=== PATIENT | female | born 1930 | race Caucasian/White ===

== ENCOUNTER 2016-03-20 17:59 | Inpatient (IN) | payer OTHER, MEDICARE ==
--- NOTE | 2016-03-20 18:14 | EDPHY ---
H & P Stated Complaint: lower abd pain, seen in UC today, dx with UTI Time Seen by Provider: 03/20/16 18:13 HPI/ROS: CHIEF COMPLAINT: Hematuria, right flank pain HISTORY OF PRESENT ILLNESS: The patient presents to the ED for evaluation of hematuria and right flank pain. Her hematuria began yesterday. It was painless. She was seen at urgent care and had a urine dipstick which dipped primarily positive for blood. A culture was ordered. The patient tells me after she was discharged from the urgent care with a presumptive diagnosis of UTI she developed flank pain and nausea. The patient has no history of a recent UTI. She has been taking her antibiotics as prescribed urgent care. The patient is not anticoagulated. She denies recent hospitalization. The patient denies additional complaints. The patient reports her symptoms are mild to moderate in nature. They are worsened with movement. They are associated with nausea but no fever. REVIEW OF SYSTEMS: A comprehensive 10 point review of systems is otherwise negative aside from elements mentioned in the history of present illness. Source: Patient Exam Limitations: No limitations - Personal History Current Tetanus/Diphtheria Vaccine: Yes Current Tetanus Diphtheria and Acellular Pertussis (TDAP): Yes - Medical/Surgical History Hx Asthma: No Hx Chronic Respiratory Disease: No Hx Diabetes: No Hx Cardiac Disease: No Hx Renal Disease: No Hx Cirrhosis: No Hx Alcoholism: No Hx HIV/AIDS: No Hx Splenectomy or Spleen Trauma: No Other PMH: appendectomy, 1 ovary removed, hysterectomy, cholecystectomy, shingles - Social History Smoking Status: Never smoked - Physical Exam Exam: General Appearance: Alert, mild discomfort secondary to pain Eyes: Pupils equal and round no pallor or injection ENT, Mouth: Mucous membranes moist Respiratory: There are no retractions, lungs are clear to auscultation Cardiovascular: Regular rate and rhythm Gastrointestinal: Minimal tenderness in the right lower quadrant Back: Right CVA tenderness Neurological: A&O, normal motor function, normal sensory exam, normal cranial nerves Skin: Warm and dry, no rashes Musculoskeletal: Neck is supple nontender Extremities: symmetrical, full range of motion Constitutional: Initial Vital Signs Temperature (C) 37.3 C 03/20/16 18:05 Heart Rate 104 H 03/20/16 18:05 Respiratory Rate 17 03/20/16 18:05 Blood Pressure 180/98 H 03/20/16 18:05 O2 Sat (%) 95 03/20/16 18:05 O2 Delivery Mode Room Air Allergies/Adverse Reactions: codeine Allergy (Verified 03/20/16 18:04) Home Medications: Medication Instructions Recorded Allopurinol 03/20/16 Amlodipine Besylate 03/20/16 Aspirin 81mg (*) 03/20/16 CO Q-10 03/20/16 Diovan Hct 160-25 mg Tablet 03/20/16 Prevastatin 03/20/16 Medical Decision Making - Diagnostics Imaging: CT abdomen pelvis without contrast: Large mass associated with right kidney noted, clot noted within the ureter, questionable clot noted in the renal vein and potential extension and IVC. Study results reported to me by Dr. Arya Lee. CT abdomen pelvis with contrast: No evidence of metastatic disease noted, no evidence of renal vein thrombosis. Clot noted within the left ureter. ED Course/Re-evaluation: The patient had an IV established. I reviewed the results of her workup from urgent care which consisted of a urinalysis which demonstrated only blood. The patient did received 25 mcg of fentanyl. Given her exam and hematuria, a CT scan of the abdomen pelvis has been ordered to exclude nephrolithiasis. CT scan of the abdomen pelvis without contrast demonstrates a newly diagnosed renal mass. There is questionable clot noted in the IVC and renal vein. CT scan the abdomen pelvis with IV contrast has been ordered. The patient received additional IV fentanyl in the emergency department. She presents to the ED with a newly diagnosed renal tumor with obstructive uropathy likely secondary to clot in the ureter. Additionally, the patient is noted to have pyuria with 4+ bacteriuria. The patient will be given IV ceftriaxone to cover for a concurrent infection. The patient will require admission to the hospital for pain control this evening. Consultation is made with the hospitalist service. I spoke with Dr. Puentes who will admit the patient this evening. Consultation has been made with Urology. I spoke with Dr. Chino Womack who will see the patient tomorrow. He does recommend a CT scan of the chest for further staging. The patient has already received contrast tonight so I will defer this to the hospitalist service to order tomorrow. Differential Diagnosis: Differential diagnosis considered includes nephrolithiasis, ureterolithiasis, pyelonephritis, renal malignancy, myofascial strain, abdominal aortic aneurysm - Data Points Laboratory Results: Laboratory Results 03/20/16 18:26 03/20/16 18:26 03/20/16 03/20/16 18:26 18:22 WBC 10.63 H 10^3/uL (3.80-9.50) RBC 4.27 10^6/uL (4.18-5.33) Hgb 12.7 g/dL (12.6-16.3) Hct 36.5 L % (38.0-47.0) MCV 85.5 fL (81.5-99.8) MCH 29.7 pg (27.9-34.1) MCHC 34.8 g/dL (32.4-36.7) RDW 13.7 % (11.5-15.2) Plt Count 248 10^3/uL (150-400) MPV 10.6 fL (8.7-11.7) Neut % (Auto) 78.6 H % (39.3-74.2) Lymph % (Auto) 15.1 % (15.0-45.0) [place] % (Auto) 4.9 % (4.5-13.0) Eos % (Auto) 0.5 L % (0.6-7.6) Baso % (Auto) 0.5 % (0.3-1.7) Nucleat RBC Rel Count 0.0 % (0.0-0.2) Absolute Neuts (auto) 8.37 H 10^3/uL (1.70-6.50) Absolute Lymphs (auto) 1.60 10^3/uL (1.00-3.00) Absolute Monos (auto) 0.52 10^3/uL (0.30-0.80) Absolute Eos (auto) 0.05 10^3/uL (0.03-0.40) Absolute Basos (auto) 0.05 10^3/uL (0.02-0.10) Absolute Nucleated RBC 0.00 10^3/uL (0-0.01) Immature Gran % 0.4 % (0.0-1.1) Immature Gran # 0.04 10^3/uL (0.00-0.10) Sodium 131 L mEq/L (134-144) Potassium 3.7 mEq/L (3.5-5.2) Chloride 95 L mEq/L (97-110) Carbon Dioxide 25 mEq/l (22-31) Anion Gap 11 mEq/L (8-16) BUN 27 H mg/dL (7-23) Creatinine 1.0 mg/dL (0.6-1.0) Estimated GFR 53 Glucose 106 H mg/dL (70-100) Calcium 11.4 H mg/dL (8.5-10.4) Phosphorus 3.3 mg/dL (2.5-4.5) Urine Color RED Urine Appearance MODERATELY TURBID Urine pH 6.0 (5.0-7.5) Ur Specific [place] 1.008 (1.002-1.030) Urine Protein 2+ H (NEGATIVE) Urine Ketones TRACE H (NEGATIVE) Urine Blood 2+ H (NEGATIVE) Urine Nitrate NEGATIVE (NEGATIVE) Urine Bilirubin NEGATIVE (NEGATIVE) Urine Urobilinogen NEGATIVE EU (0.2-1.0) Ur Leukocyte Esterase TRACE H (NEGATIVE) Urine RBC 50-182 H /hpf (0-3) Urine WBC 25-50 H /hpf (0-3) Ur Epithelial Cells NONE SEEN /lpf (NONE-1+) Urine Bacteria 4+ H /hpf (NONE SEEN) Ur Culture Indicated? INDICATED H (NI) Urine Glucose NEGATIVE (NEGATIVE) Medications Given: Discontinued Medications Fentanyl (Sublimaze) 25 mcg IVP EDNOW ONE Stop: 03/20/16 18:46 Last Admin: 03/20/16 18:52 Dose: 25 mcg Sodium Chloride (Ns) 1,000 mls @ 0 mls/hr IV ONCE ONE PRN Reason: Wide Open Stop: 03/20/16 18:54 Last Admin: 03/20/16 19:40 Dose: Not Given Sodium Chloride (Ns) 500 mls @ 0 mls/hr IV ONCE ONE PRN Reason: Wide Open Stop: 03/20/16 19:37 Last Admin: 03/20/16 18:50 Dose: 500 mls Departure - Departure Disposition: [facility] Acute Clinical Impression: Renal mass, right, Hydronephrosis, Hematuria Condition: Fair
[2016-03-20 18:33] LABS: COLOR RED; LEUKOCYTE ESTERASE,URINE TRACE (NEGATIVE); NITRITE,URINE NEGATIVE (NEGATIVE)
[2016-03-20] MEDS ORDERED: fentaNYL 100 MCG/2 ML INJ IVP ONE ×2 (18:45→20:15)
[2016-03-20] MEDS ORDERED: fentaNYL 100 MCG/2 ML INJ ONE (18:46)
[2016-03-20 18:48] LABS: ANION GAP 11 mEq/L (8-16); CALCIUM 11.4 mg/dL (8.5-10.4); CARBON DIOXIDE 25 mEq/l (22-31); CHLORIDE 95 mEq/L (97-110); GLOMERULAR FILTRATION RATE 53; GLUCOSE 106 mg/dL (70-100); POTASSIUM 3.7 mEq/L (3.5-5.2); SODIUM 131 mEq/L (134-144)
[2016-03-20 18:52] LABS: BACTERIA 4+ /hpf (NONE SEEN); RBC,URINE 50-182 /hpf (0-3); WBC,URINE 25-50 /hpf (0-3)
[2016-03-20 18:53] LABS: % IMMATURE GRANULYOCYTES 0.4 % (0.0-1.1); ABSOLUTE IMMATURE GRANULOCYTES 0.04 10^3/uL (0.00-0.10); ADD DIFF? NO; ADD MORPH? NO; ADD SCAN? NO; ATYPICAL LYMPHOCYTE FLAG 0 (0-99); FRAGMENT RBC FLAG 0 (0-99); HEMATOCRIT 36.5 % (38.0-47.0); HEMOGLOBIN 12.7 g/dL (12.6-16.3); LEFT SHIFT FLG 0 (0-99); LIPEMIA HEMOLYSIS FLAG 90 (0-99); MEAN CELL HEMOGLOBIN 29.7 pg (27.9-34.1); MEAN CELL HEMOGLOBIN CONCENTR. 34.8 g/dL (32.4-36.7); MEAN CELL VOLUME 85.5 fL (81.5-99.8); MEAN PLATELET VOLUME 10.6 fL (8.7-11.7); PLATELET CLUMPS FLAG 0 (0-99); PLATELET COUNT 248 10^3/uL (150-400); RED BLOOD CELL COUNT 4.27 10^6/uL (4.18-5.33); RED CELL DISTRIBUTION WIDTH 13.7 % (11.5-15.2)
[2016-03-20] MEDS: NS 1,000 ML IV ONE ×2 (18:54→19:40)
[2016-03-20] MEDS ORDERED: IOPAMIDOL (ISOVUE-300) 50 ML VIAL IV ONE (19:27)
[2016-03-20] MEDS ORDERED: NS 500 ML IV ONE (19:36)
--- NOTE | 2016-03-20 20:39 | CT ---
CT Abdomen and Pelvis With and Without IV Contrast dated March 20, 2016 Indication: An 86-year-old woman with hematuria and flank pain. Comparison: None. Technique: The abdomen and pelvis was initially scanned without IV or oral contrast utilizing 5 mm th ick helically acquired slices from the heart to the usual tuberosities. 80 mL of Isovue-300 was uneve ntfully intravenously administered and the abdomen was scanned during arterial and nephrographic phas e and the abdomen and pelvis was scanned following a 12 minute delay. Dose reduction techniques were utilized. Findings Noncontrast: A large heterogeneous 8.5 x 7.0 x 8.0 cm mass fills and replaces the upper half of the r ight kidney. Mild stranding and collateral vessels surround the right kidney. The right pelvicalyceal system and ureter are moderately dilated. Dense material, likely blood products are present in the d istal one-third of the right ureter. No obstructing ureteral calculus or distal mass. Left kidney is normal with no hydronephrosis, ureteral calculi, or nephrolithiasis. The urinary bladd er is normal. The lung bases are clear. No pulmonary nodule or consolidation. No lytic or blastic bone lesions. Postcontrast: The hypervascular heterogeneous mass promptly enhances on the arterial phase and has ea rly venous draining into the right renal vein and inferior vena cava. The right renal vein and inferi or vena cava have normal enhancement on the nephrographic and delayed phase with no evidence of tumor thrombus. The thrombus in the distal right ureter results in delayed excretion of contrast into the dilated right renal pelvis. The normally enhancing left kidney has normal excretion. The opacified le ft ureter and urinary bladder are normal. No blood clot or mass within the bladder lumen. No regional lymphadenopathy, peritoneal implant, or ascites. The liver, spleen, pancreas, and adrenal glands are normal. The gallbladder is surgically absent. [place] el pattern is normal, except for moderate constipation. The abdominal aorta is normal caliber and atherosclerotic. Impressions: 1. 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 2. No evidence of renal tumor thrombus or local regional metastatic disease. 3. Moderate right hydronephrosis secondary to clot in the distal right ureter. 4. Normal left kidney and urinary bladder. 5. Atherosclerotic abdominal aorta. Comment: Results were called to Dr. Blair Chino at 8:30 p.m. on March 20, 2016.
[2016-03-20] MEDS ORDERED: ONDANSETRON 4 MG/2 ML VIAL ONE (20:54)
[2016-03-20] MEDS ORDERED: ONDANSETRON 4 MG/2 ML VIAL IVP ONE (21:03)
[2016-03-20] MEDS ORDERED: HYDROCODONE/APAP 5/325 TAB PO PRN (21:07)
[2016-03-20] MEDS ORDERED: oxyCODONE IR 5 MG TAB PO PRN (21:07)
[2016-03-20] MEDS ORDERED: ONDANSETRON 4 MG/2 ML VIAL IVP PRN (21:07)
[2016-03-20] MEDS ORDERED: ONDANSETRON DISINTEGRATING 4 MG TAB PO PRN (21:07)
[2016-03-20] MEDS ORDERED: ACETAMINOPHEN 325 MG TAB PO PRN (21:07)
[2016-03-20] MEDS ORDERED: NS 1,000 ML IV SCH (21:15)
--- NOTE | 2016-03-20 21:48 | GHP ---
[f rep st] HISTORY AND PHYSICAL DATE OF ADMISSION: 03/20/2016 CHIEF COMPLAINT: Right flank pain. HISTORY OF PRESENT ILLNESS: This is an 86-year-old female with only a history of hypertension. She has had 1 day of hematuria and right flank pain. CT scan today revealed a right renal mass. She den ies any weight loss. She does have some intermittent constipation, but this has been chronic. No josefina ne pain. No shortness of breath or chest pain. No fevers or chills. REVIEW OF SYSTEMS: A 10-point review of systems was obtained and was negative. PAST MEDICAL HISTORY: Hypertension, gout. MEDICATIONS: Reviewed. SOCIAL HISTORY: No smoking or alcohol. Moved here from [place] 3 months ago to be with family. FAMILY HISTORY: Both parents are . PHYSICAL EXAMINATION: VITAL SIGNS: Afebrile, blood pressure is 171/71, heart rate is 88, oxygen sat uration 91% on room air. GENERAL: The patient is well developed and in no apparent distress. HEENT : Nonicteric sclerae. Extraocular movements intact. Moist mucous membranes. NECK: Supple. No th yromegaly. LUNGS: Good effort. Clear to auscultation bilaterally. CARDIOVASCULAR: Regular rate a nd rhythm. No murmurs or gallops. ABDOMEN: Positive bowel sounds. Soft, nontender, nondistended. No hepatosplenomegaly. Positive right CVA tenderness. EXTREMITIES: No clubbing, cyanosis, or saud a. SKIN: Without rash. Dry and intact. NEUROLOGIC: Alert and oriented x3. Moving all 4 extremit ies equally. PSYCHIATRIC: Normal affect. LABORATORY DATA: Sodium 131, potassium 3.7, BUN 27, creatinine 1.0. Calcium is elevated at 11.4. [place] count is 10; otherwise, normal. UA does show 4+ bacteria suggestive of a urinary tract infectio n. CT scan of the abdomen and pelvis shows an 8 x 7 x 8 cm mass that fills and replaces the upper lemus lf of the right kidney. Moderate right hydronephrosis due to a clot in the distal right ureter. ASSESSMENT AND PLAN: An 86-year-old female who presented with a new right renal mass. 1. Right renal mass. Urology has been consulted. They were requesting a CT scan of the chest for david leo. We will get this in the morning since she has had contrast. 2. Right hydronephrosis with urinary tract infection. We will treat with IV ceftriaxone. The patie nt is not septic-appearing at all. 3. Hypercalcemia. This could be related to malignancy or perhaps her hydrochlorothiazide. We will check a PTH, give IV fluids overnight, and check an ionized calcium tomorrow. 4. Mild hyponatremia, probably related to diuretic. 5. Hypertension. We will hold her Diovan/hydrochlorothiazide. We can resume her amlodipine if her pressures are high tomorrow. We will hold her aspirin. /[id number]/MODL
[2016-03-21 05:35] LABS: IONIZED CALCIUM 1.32 MMOL/L (1.12-1.30)
[2016-03-21 05:36] LABS: % IMMATURE GRANULYOCYTES 0.4 % (0.0-1.1); ABSOLUTE IMMATURE GRANULOCYTES 0.05 10^3/uL (0.00-0.10); ADD DIFF? NO; ADD MORPH? NO; ADD SCAN? NO; ATYPICAL LYMPHOCYTE FLAG 0 (0-99); FRAGMENT RBC FLAG 0 (0-99); HEMATOCRIT 34.7 % (38.0-47.0); HEMOGLOBIN 11.9 g/dL (12.6-16.3); LEFT SHIFT FLG 0 (0-99); LIPEMIA HEMOLYSIS FLAG 90 (0-99); MEAN CELL HEMOGLOBIN 29.9 pg (27.9-34.1); MEAN CELL HEMOGLOBIN CONCENTR. 34.3 g/dL (32.4-36.7); MEAN CELL VOLUME 87.2 fL (81.5-99.8); PLATELET CLUMPS FLAG 0 (0-99); PLATELET COUNT 213 10^3/uL (150-400); RED BLOOD CELL COUNT 3.98 10^6/uL (4.18-5.33); RED CELL DISTRIBUTION WIDTH 13.9 % (11.5-15.2)
[2016-03-21 05:44] LABS: APTT 31.3 SEC (23.0-38.0); INR 1.13 (0.83-1.16); PROTIME(PATIENT) 14.4 SEC (12.0-15.0)
[2016-03-21 05:57] LABS: ALANINE AMINOTRANSFERASE 28 IU/L (9-52); ALBUMIN 3.2 g/dL (3.5-5.0); ALKALINE PHOSPHATASE 58 IU/L (38-126); ANION GAP 10 mEq/L (8-16); ASPARTATE AMINOTRANSFERASE 31 IU/L (14-46); CARBON DIOXIDE 25 mEq/l (22-31); CHLORIDE 98 mEq/L (97-110); CREATININE 1.2 mg/dL (0.6-1.0); GLOMERULAR FILTRATION RATE 43; GLUCOSE 107 mg/dL (70-100); SODIUM 133 mEq/L (134-144)
[2016-03-21] MEDS ORDERED: HYDROCHLOROTHIAZIDE PO SCH (10:00)
[2016-03-21] MEDS ORDERED: VALSARTAN PO SCH (10:00)
[2016-03-21] MEDS ORDERED: [UNRECOGNIZED DRUG - OTHER] PO SCH (10:00)
--- NOTE | 2016-03-21 12:30 | HOSPPROG ---
Hospitalist Progress Note Assessment/Plan: 86-year-old with hypertension presents with 1 day of hematuria and flank pain. CT evaluation revealed a large right renal mass. # right renal mass suspicious for renal cell carcinoma. Patient pain much improved today however plans are for Urology to evaluate her here and decide on further evaluation whether here or as an outpatient. * Await urology consult * CT of the chest today to look for metastatic disease # flank pain. Improved today patient has been on antibiotics for possible obstructive urinary tract infection * Continue antibiotics # hypertension. Currently controlled # renal insufficiency unclear chronicity as patient recently moved here. Monitor creatinine # DVT prophylaxis: Lovenox contraindicated in setting of bleeding tumor. Subjective: Patient pain much improved today wants to go home as soon as possible Objective: Vital Signs Temp Pulse Resp BP Pulse Ox 36.7 C 80 16 116/68 94 03/21/16 08:45 03/21/16 08:45 03/21/16 08:45 03/21/16 08:45 03/21/16 08:45 Laboratory Results 03/21/16 03:22 03/21/16 03:22 03/20/16 03/21/16 03/22/16 05:59 05:59 05:59 Intake Total 600 Output Total 750 Balance -150 PT 14.4 SEC (12.0-15.0) 03/21/16 03:22 INR 1.13 (0.83-1.16) 03/21/16 03:22 - Physical Exam Constitutional: no apparent distress Eyes: PERRL, EOMI Ears, Nose, Mouth, Throat: moist mucous membranes Cardiovascular: regular rate and rhythym, systolic murmur Respiratory: no respiratory distress, no rales or rhonchi, clear to auscultation Gastrointestinal: normoactive bowel sounds, soft, non-tender abdomen, no palpable masses Skin: warm Musculoskeletal: normal joint ROM, no joint effusions Neurologic: AAOx3, sensation intact bilaterally Psychiatric: interacting appropriately, not anxious ICD10 Worksheet Patient Problems: Problems Problem Status Diagnosed Hematuria Acute Hydronephrosis Acute Renal mass, right Acute
[2016-03-21] MEDS: amLODIPine BESYLATE 5 MG TAB PO SCH (15:51)
[2016-03-21] MEDS: VALSARTAN/HCTZ 80-12.5MG TAB PO SCH (15:51)
[2016-03-21] MEDS ORDERED: IOPAMIDOL (ISOVUE-300) 50 ML VIAL IV ONE (17:09)
--- NOTE | 2016-03-21 18:09 | CT ---
CT Chest With Contrast 1731 hours Indication: Large right upper pole renal mass. Evaluate for metastatic disease in the chest.. Technique: Spiral images were obtained through the chest with the uneventful intravenous administr ation of 80 mL of Isovue-300. Images were reconstructed and reviewed in multiple planes. Dose reduc tion techniques were utilized. Findings: Mediastinum and ashley: There is a prominent right distal tracheal node measuring 2.4 x 2.3 x 2.9 cm. N o additional hilar or mediastinal lymphadenopathy is appreciated.. Lung and large airways: Normal. No significant pulmonary nodules. Within the left lower lobe posterio rly on series 4 image 159 there is mucous plug identified measuring about 5 x 4.5 mm. No additional p ulmonary nodules are identified. Mild subsegmental atelectasis is seen at the right lung base. There is some elevation of the right hemidiaphragm. Bronchi: No significant bronchial wall thickening. Pleura: Normal. Vessels: There is arteriosclerotic calcification of the thoracic aorta without evidence of aneurysm o r dissection. Arteriosclerotic calcifications are also seen involving the proximal to mid LAD. . Heart and pericardium: The cardiac chambers are normal in size. Calcification is also noted around t he mitral annulus. Chest wall and lower neck: Normal. Limited upper abdomen: Large mass is once again identified upper pole right kidney.. Skeletal system: Vertebral body heights are well-maintained. There are no lytic or sclerotic osseous lesions. Impression: 1. Prominent right distal paratracheal node suspicious for metastatic disease. 2. No significant pulmonary nodules. Incidental mucous plug left lower lobe. 3. Arteriosclerotic calcification of the thoracic aorta and proximal to mid LAD. 4. Large mass upper pole right kidney previously described.
[2016-03-21] MEDS ORDERED: CHOLECALCIFEROL VIT D3 1,000 UNITS TAB PO SCH (21:00)
[2016-03-21] MEDS: ASPIRIN EC 81 MG TAB PO SCH ×2 (21:19→21:23)
[2016-03-21] MEDS: HYDROmorphONE/DILAUDID 1 MG/ML SYR IVP PRN (21:19)
[2016-03-21] MEDS: PRAVASTATIN SODIUM 40 MG TAB PO SCH ×2 (21:19→21:23)
[2016-03-21] MEDS ORDERED: PROMETHAZINE HCL 25 MG/ML VIAL IVP PRN (21:34)
[2016-03-22] MEDS: HYDROmorphONE/DILAUDID 1 MG/ML SYR IVP PRN (00:58)
[2016-03-22 06:00] LABS: % IMMATURE GRANULYOCYTES 0.4 % (0.0-1.1); ABSOLUTE IMMATURE GRANULOCYTES 0.05 10^3/uL (0.00-0.10); ADD DIFF? NO; ADD MORPH? NO; ADD SCAN? NO; ATYPICAL LYMPHOCYTE FLAG 0 (0-99); FRAGMENT RBC FLAG 0 (0-99); HEMATOCRIT 32.2 % (38.0-47.0); HEMOGLOBIN 11.1 g/dL (12.6-16.3); LEFT SHIFT FLG 0 (0-99); LIPEMIA HEMOLYSIS FLAG 90 (0-99); MEAN CELL HEMOGLOBIN 29.8 pg (27.9-34.1); MEAN CELL HEMOGLOBIN CONCENTR. 34.5 g/dL (32.4-36.7); MEAN CELL VOLUME 86.3 fL (81.5-99.8); MEAN PLATELET VOLUME 10.2 fL (8.7-11.7); PLATELET CLUMPS FLAG 0 (0-99); PLATELET COUNT 194 10^3/uL (150-400); RED BLOOD CELL COUNT 3.73 10^6/uL (4.18-5.33)
[2016-03-22 06:23] LABS: ANION GAP 10 mEq/L (8-16); CALCIUM 9.6 mg/dL (8.5-10.4); CARBON DIOXIDE 24 mEq/l (22-31); CHLORIDE 100 mEq/L (97-110); CREATININE 1.4 mg/dL (0.6-1.0); GLOMERULAR FILTRATION RATE 36; GLUCOSE 89 mg/dL (70-100); POTASSIUM 3.5 mEq/L (3.5-5.2); SODIUM 134 mEq/L (134-144)
[2016-03-22 07:50] VITALS: TEMP 98.5
[2016-03-22] MEDS ORDERED: NS 1,000 ML IV SCH (08:15)
[2016-03-22] MEDS ORDERED: MULTIVITAMINS 1 EACH TAB PO SCH (09:00)
[2016-03-22] MEDS ORDERED: CALCIUM CARBONATE 500 MG TAB PO SCH (09:00)
[2016-03-22] MEDS ORDERED: VITAMIN B COMPLEX 1 EA CAP/TAB PO SCH (09:00)
--- NOTE | 2016-03-22 09:28 | SOAPPROG ---
[facility] Progress Note Assessment/Plan: Assessment: 1. Large right renal mass w/ possible isolated lung wade metastasis. 2. Hematuria and renal colic due to bleeding from renal mass. Plan: 1. See dictated consultation. 2. Discharge pt. once current symptomatology has improved. She will FU in my office this for further consultation. She will also need to meet w/ oncology as an outpatient as well. 3. Hold all anticoagulants, including ASA. Objective: Vital Signs Temp Pulse Resp BP Pulse Ox 36.9 C 84 16 132/64 H 95 03/22/16 07:49 03/22/16 07:49 03/22/16 07:49 03/22/16 07:49 03/22/16 07:49 Laboratory Results 03/22/16 05:35 03/22/16 05:35 03/21/16 03/22/16 03/23/16 05:59 05:59 05:59 Intake Total 600 500 400 Output Total 750 2500 Balance -150 -2000 400 PT 14.4 SEC (12.0-15.0) 03/21/16 03:22 INR 1.13 (0.83-1.16) 03/21/16 03:22 ICD10 Worksheet Patient Problems: Problems Problem Status Diagnosed Hematuria Acute Hydronephrosis Acute Renal mass, right Acute
[2016-03-22] MEDS: VALSARTAN/HCTZ 80-12.5MG TAB PO SCH (10:14)
[2016-03-22] MEDS: amLODIPine BESYLATE 5 MG TAB PO SCH (10:15)
--- NOTE | 2016-03-22 11:32 | GDS ---
[f rep st] DISCHARGE SUMMARY DIAGNOSES: 1. Renal mass with hematuria. 2. Acute renal insufficiency, needs close followup. 3. Hypertension. 4. Flank pain, likely secondary to renal mass. 5. Pyuria, unclear if patient has a urinary tract infection .. PROCEDURES DONE: Chest and abdominal CT scan. Chest CT showing prominent right distal paratracheal node suspicious for metastatic disease. Abdominal CT: Large right renal mass with arterial and veno us collaterals. No evidence of renal tumor thrombus. Moderate right hydro. Normal left kidney and urinary bladder. HOSPITAL COURSE: The patient is an 86-year-old, healthy woman, who comes in with right flank pain. Evaluation included a urinalysis and CT scanning which revealed a large right renal mass. She did lemus ve hematuria on the day of admission, which improved through her stay, although she has intermittent hematuria at the time of discharge. She received a CT scan and urology consult, which confirmed high likelihood of renal cell carcinoma. Metastatic workup was done including a chest CT. She has a fol lowup scheduled with Dr. Womack as an outpatient to discuss treatment options including possible neph rectomy. Other issues during hospitalization: She may have had a mild urinary tract infection. She was treat ed with ceftriaxone and will complete a few days of Keflex until she sees Urology. She has mild stuart l insufficiency, likely from the hydro, as well as the contrast studies. She needs a followup metabo lic panel done on to recheck her creatinine. She does have a ob gyn physician assistant she will call if she has any concerns, Dr. Mahajan, whom she has a relationship with as he sees her . In the , she is to hold her losartan/hydrochlorothiazide, increase her hydration, check her blood wor k on . This will go directly to her primary care provider, Dr. Naomi Matthews. If she has any o ther issues or concerns, she can certainly call her primary care provider or come to the emergency ro om for emergencies. CONDITION ON DISCHARGE: Good. PHYSICAL EXAMINATION: VITAL SIGNS: She has been afebrile. Vital signs are stable. GENERAL: She i s alert and oriented. ABDOMEN: Soft. HEART: Regular. LUNGS: Clear. DISCHARGE MEDICATIONS: Please see discharge medication list. She will resume her home medications e xcept for holding her blood pressure losartan and hydrochlorothiazide until . She will she w as given a prescription for Keflex to complete 5 more days, Zofran for nausea, and Oxy IR for pain. FOLLOWUP INSTRUCTIONS: She has followup scheduled with Dr. Womack later this week. She should also see her primary care provider and has a blood test scheduled on . TIME SPENT: Total time spent with patient on day of discharge and coordination of care is 35 minutes . /[id number]/MODL
[2016-03-22 12:38] VITALS: BP 121/57; PULSE 88; RESP 18; O2SAT 91
--- NOTE | 2016-03-22 13:03 | GCON ---
[f rep st] CONSULTATION UROLOGY CONSULTATION DATE OF CONSULTATION: 03/21/2016 PHYSICIAN REQUESTING CONSULTATION: Hospitalist service. REASON FOR CONSULTATION: Right renal mass and hematuria. HISTORY: This is an 86-year-old woman who started experiencing gross painless hematuria and right-si ded flank pain 1 day prior to admission. She presented to the emergency room as a result. She has als o had some associated increased urinary frequency and urgency, but denies any fevers or flu-like symp toms. CT scan was performed on admission which revealed a sizable renal mass, detailed below. PAST MEDICAL HISTORY: Notable for hypertension and gout. PAST SURGICAL HISTORY: Includes laparoscopic cholecystectomy within the last 10 years and remote tot al abdominal hysterectomy and bilateral salpingo-oophorectomy. ADMISSION MEDICATIONS: Include valsartan/hydrochlorothiazide 160 mg/25 mg daily, Pravachol 20 mg at bedtime, Norvasc 5 mg daily, baby aspirin, vitamins and supplements. MEDICAL ALLERGIES: Codeine. FAMILY HISTORY: Noncontributory. SOCIAL HISTORY: The patient and her moved here from [place], [place] approximately 3 months ag o to be closer to family. She lives at [facility]. She denies use of tobacco or alcohol products. H er has renal failure and undergoes regular dialysis. REVIEW OF SYSTEMS: She has had an approximately 6 pounds unintentional weight loss over the last 3 m onths. Denies anorexia or changes in bowel movement pattern. Otherwise, unremarkable other than menti oned above in the HPI and past medical history. PHYSICAL EXAM: GENERAL: Pleasant, well-developed, well-nourished elderly female, in no acute distres s. VITAL SIGNS: Blood pressure 146/60, pulse 89, respirations 16, oxygen saturation 89% on 1 L, tempe rature 37.7 Celsius. HEENT: Normocephalic, atraumatic. NECK: Supple. HEART: Regular rate. CHEST: Unla bored respiratory pattern. ABDOMEN: Soft with fullness in the right upper quadrant with some mild ass ociated tenderness. No peritoneal signs. No involuntary guarding. A lower midline surgical scar is no aron. EXTREMITIES: Warm without cyanosis, clubbing, or significant edema. VASCULAR: Normal femoral, do rsalis pedis, and posterior tibial pulses bilaterally. NEUROLOGIC: She is alert and oriented. She ans wers all questions appropriately with normal mood and affect. LAB STUDIES: Abdominopelvic CT scan yesterday: Upon my review, notable for an approximately 9 x 7 x 8 cm long heterogeneous enhancing solid right upper pole renal mass that extends posteriorly and medi ally. There was possible thrombus into the IVC and extending superiorly 4 cm from the junction with t he renal vein. There was some possible small perihilar adenopathy. There was moderate right hydroneph rosis with clot in the distal ureter. The left kidney and liver appear normal. Chest CT scan: By report, notable for a prominent 2.5 x 2 x 3 cm right distal paratracheal node, worr isome for metastatic disease. Laboratory: Chemistry panel notable for creatinine 1.2, compared to 1.01 in . Remainder of comprehensive medical panel is unremarkable. 03/21 coagulation parameters normal. 03/21 CBC notable for hematocrit 11.9, hemoglobin 34.7, white blood cell count 12,000. Urinalysis notable for microhematuri a with 4+ bacteria. Urine culture results are pending. IMPRESSION: 1. Large right renal mass with possible pulmonary metastasis. Very suggestive for renal cell carcino ma. 2. Right flank pain and gross hematuria secondary to tumor bleeding into renal collecting system and subsequent clot in the ureter. DISCUSSION: I had a prolonged talk with the patient this evening regarding her imaging findings and probable diagnosis of renal cancer with possible metastasis. Management options would include palliat luis carlos nephrectomy versus systemic immunotherapy or tyrosine kinase inhibitors. We discussed that her cu rrent symptoms of hematuria, flank pain, and urinary symptoms are due to bleeding from the tumor whic h in many cases tends to be episodic. All of the patient's questions were answered to her apparent sa tisfaction this evening. PLAN: 1. She may be discharged once her symptoms have abated. I would expect the ureteral blood clots to s pontaneously pass, and this should allow her to feel better. 2. I would like to have the patient follow up in my office on for further [facility], if possible. 3. She will also need to meet with medical oncology which we will arrange as an outpatient. At this point, the patient is not sure whether she wants to undergo any type of therapy. 4. If she continues to have gross hematuria following discharge, she may need to undergo nephrectomy for that reason alone. 5. I have asked the patient to stop her baby aspirin, and she should not resume any other anticoagul ants until further notice. Thank you for this consultation. /[id number]/MODL
== END 2016-03-22 16:54 | disposition home or self-care (01) | DRG 699 ==
LOC: F1N 20:45
PROVIDERS: ADMIT Internal Medicine; ATTEND Internal Medicine
DX: N28.89 Other specified disorders of kidney and ureter (principal); E87.1 Hypo-osmolality and hyponatremia; E83.52 Hypercalcemia; R31.9 Hematuria, unspecified; N39.0 Urinary tract infection, site not specified; N13.30 Unspecified hydronephrosis; I10 Essential (primary) hypertension; M10.9 Gout, unspecified
CPT/HCPCS: 96365; J0696; J1170; J2405; J2550; J3010; Q9967

== ENCOUNTER → 2016-04-12 | Outpatient (CLI) | payer OTHER, MEDICARE ==
--- NOTE | 2016-04-12 11:33 | DX ---
Chest, Two Views - April 12, 2016, at 1025 hours History: Right renal cell carcinoma. Comparison: March 2016 Findings: Cardiac silhouette is within normal range. Atherosclerotic tortuous aorta. Bilateral peribr onchial thickening. No pneumonia, congestive heart failure, pleural effusion, or pneumothorax. Impression: 1. Chronic bronchitis. 2. No definite pneumonia. 3. Atherosclerotic tortuous aorta. 4. Please see recent CT chest report.
== END ==
LOC: FIMAGING 10:28
PROVIDERS: ATTEND Family Medicine
DX: Z01.818 Encounter for other preprocedural examination (principal); C64.9 Malignant neoplasm of unspecified kidney, except renal pelvis; J42 Unspecified chronic bronchitis

== ENCOUNTER 2016-04-22 12:17 | Inpatient (IN) | payer OTHER, MEDICARE ==
[2016-04-22] MEDS ORDERED: NS 1,000 ML IV ONE (13:56)
--- NOTE | 2016-04-22 13:59 | EDPHY ---
H & P <ElviraGorge Peguero - Last Filed: 04/22/16 17:50> Stated Complaint: pt had r nephrectomy/cancer 2/6 developed n/v Source: Patient Exam Limitations: No limitations - Personal History Current Tetanus/Diphtheria Vaccine: Yes - Medical/Surgical History Hx Asthma: No Hx Chronic Respiratory Disease: No Hx Diabetes: No Hx Cardiac Disease: No Hx Renal Disease: Yes Hx Cirrhosis: No Hx Alcoholism: No Hx HIV/AIDS: No Hx Splenectomy or Spleen Trauma: No Other PMH: appendectomy, 1 ovary removed, hysterectomy, cholecystectomy, shingles/ Htn - Family History Significant Family History: No pertinent family hx - Social History Smoking Status: Never smoked Alcohol Use: None Drug Use: None <Itz Huynh - Last Filed: 04/26/16 00:51> Time Seen by Provider: 04/22/16 13:52 HPI/ROS: CHIEF COMPLAINT: Abdominal pain and distension and vomiting HISTORY OF PRESENT ILLNESS: Patient is an 86-year-old female who comes to the emergency department complaining of abdominal pain, distention and vomiting. She had a right laparoscopic nephrectomy 5 days ago for history of renal cancer. She was discharged a few days later and had been passing gas and urinating well. She states however that over the last 24 hours she has not urinated or passed gas. She began having abdominal pain about 3 days ago. No fevers. She has not vomited today but vomited twice yesterday. REVIEW OF SYSTEMS: Constitutional: denies: chills, fever, recent illness, recent injury EENTM: denies: blurred vision, double vision, nose congestion Respiratory: denies: cough, shortness of breath Cardiac: denies: chest pain, irregular heart rate, lightheadedness, palpitations Gastrointestinal/Abdominal: See HPI Genitourinary: denies: dysuria, frequency, hematuria, pain Musculoskeletal: denies: joint pain, muscle pain Skin: denies: lesions, rash, jaundice, bruising Neurological: denies: headache, numbness, paresthesia, tingling, dizziness, weakness Hematologic/Lymphatic: denies: blood clots, easy bleeding, easy bruising Immunologic/allergic: denies: HIV/AIDS, transplant EXAM: GENERAL: Well-appearing, well-nourished and in no acute distress. HEAD: Atraumatic, normocephalic. EYES: Pupils equal round and reactive to light, extraocular movements intact, sclera anicteric, conjunctiva are normal. ENT: TMs normal, nares patent, oropharynx clear without exudates. Moist mucous membranes. NECK: Normal range of motion, supple without lymphadenopathy or JVD. LUNGS: Breath sounds clear to auscultation bilaterally and equal. No wheezes rales or rhonchi. HEART: Regular rate and rhythm without murmurs, rubs or gallops. ABDOMEN: Distended, wounds clean dry and intact, diffuse tenderness. BACK: No CVA tenderness, no spinal tenderness, step-offs or deformities EXTREMITIES: Normal range of motion, no pitting or edema. No clubbing or cyanosis. NEUROLOGICAL: Cranial nerves II through XII grossly intact. Normal speech, normal gait. 5/5 strength, normal movement in all extremities, normal sensation PSYCH: Normal mood, normal affect. SKIN: Warm, dry, normal turgor, no visible rashes or lesions. (Itz Huynh) Constitutional: Initial Vital Signs Temperature (C) 36.5 C 04/22/16 12:26 Heart Rate 105 H 04/22/16 12:26 Respiratory Rate 20 04/22/16 12:26 Blood Pressure 125/76 H 04/22/16 12:26 O2 Sat (%) 96 04/22/16 12:26 O2 Delivery Mode Room Air O2 (L/minute) 2 Allergies/Adverse Reactions: codeine Allergy (Verified 04/22/16 12:25) Home Medications: Medication Instructions Recorded Aspirin EC [Aspirin EC 81 mg (*)] 81 mg PO HS 03/20/16 Calcium Carbonate [Oyster Shell 500 mg PO DAILY 03/20/16 Calcium 500 mg (*)] Cholecalciferol Vit D3 [Vitamin D3 1,000 units PO HS 03/20/16 (*)] Glucosamine HCl/Chondr Tobar A Na 1 cap PO BID 03/20/16 [Glucosamine-Chondroitin Cap] Herbals/Supplements -Info Only 1 ea PO DAILY 03/20/16 Multivitamins [Multivitamin (*)] 1 tab PO DAILY 03/20/16 Pravastatin Sodium [Pravachol] 20 mg PO HS 03/20/16 Vitamin B Complex [B Complex] 1 tab PO DAILY 03/20/16 amLODIPine BESYLATE [Norvasc 5 mg 2.5 mg PO DAILY 03/20/16 (*)] Ondansetron Odt [Zofran Odt 4 mg 4 mg PO Q4HRS PRN #20 tab 03/22/16 (*)] oxyCODONE IR [Oxycodone Ir (*)] 5 - 10 mg PO Q3HRS PRN #20 tab 03/22/16 Amoxicillin/Clavulanate Pot 875 mg PO BID #10 tab 04/24/16 [Augmentin 875 MG TAB (*)] Medical Decision Making <Gorge Felix - Last Filed: 04/22/16 17:50> <Itz Huynh - Last Filed: 04/26/16 00:51> ED Course/Re-evaluation: 1500: Patient care signed out to me at shift change from Dr. Huynh. CT pending. Study: CT of the Abdomen and Pelvis Indication: Pain, recent surgery Results: CT scan of the abdomen was obtained. The results of the study are 1. Extensive free intraperitoneal air, suspicious for bowel perforation. 2. Dilated proximal small bowel, with decompression of ileum, which could be related to internal hernia. 3. Diffuse colonic distention, with smooth tapering distally, most likely related to ileus. 4. Small pleural effusions, right greater than left. 5. 5 mm left lower lobe nodule. While this could be related to mucous plugging, unenhanced CT chest is recommended for follow up in one year. 6. Small right retroperitoneal fluid collection, suggesting seroma/hematoma, in the nephrectomy bed. 7. Additional findings, as above. The study was read by the radiologist, Dr. Valente. I viewed the images myself on the PACS system. 1556: Surgeon paged. Reviewed patient's prior medical records including admission 03/20/16 for related pain. We do not have records of her reported nephrectomy 5 days ago. 1604: Consulted with Dr. Swenson, surgeon. He will assess patient in the ED. 1708: Dr. Swenson is assessing patient in the ED. Dr. Swenson believes this is likely an ileus and nonsurgical. 1750: Spoke with Dr. Ledezma, hospitalist. He accepts admission. (Gorge Felix ) Care transferred to Dr. Gorge Felix at 3:00 p.m.. (Itz Huynh) Differential Diagnosis: Partial list of the Differential diagnosis considered include but were not limited to; dehydration, vomiting, diarrhea, obstruction and although unlikely based on the history and physical exam, I also considered ischemia, perforation. (Itz Huynh) - Data Points Laboratory Results: Laboratory Results 04/22/16 14:09 04/22/16 14:09 Medications Given: Discontinued Medications Aspirin Buffered (Aspirin Ec) 81 mg PO HS AYESHA Stop: 10/19/16 20:59 Last Admin: 04/23/16 23:59 Dose: Not Given Enoxaparin Sodium (Lovenox) 40 mg SC DAILY AYESHA Stop: 10/20/16 08:59 Last Admin: 04/23/16 11:30 Dose: Not Given Enoxaparin Sodium (Lovenox) 30 mg SC DAILY AYESHA Stop: 10/21/16 08:59 Last Admin: 04/24/16 10:04 Dose: Not Given Hydromorphone HCl (Dilaudid) 0.5 mg IVP EDNOW ONE Stop: 04/22/16 14:32 Last Admin: 04/22/16 14:37 Dose: 0.5 mg Hydromorphone HCl (Dilaudid) 0.5 mg IVP EDNOW ONE Stop: 04/22/16 15:18 Last Admin: 04/22/16 15:22 Dose: Not Given Hydromorphone HCl (Dilaudid) 0.5 mg IVP EDNOW ONE Stop: 04/22/16 15:50 Last Admin: 04/22/16 16:07 Dose: 0.5 mg Sodium Chloride (Ns) 1,000 mls @ 0 mls/hr IV ONCE ONE PRN Reason: Wide Open Stop: 04/22/16 13:57 Last Admin: 04/22/16 14:37 Dose: 1,000 mls Ertapenem 1 gm/ Sodium (Chloride) 100 mls @ 200 mls/hr IV EDNOW ONE PRN Reason: Protocol Stop: 04/22/16 16:28 Last Admin: 04/22/16 16:25 Dose: 100 mls Sodium Chloride (Ns) 1,000 mls @ 125 mls/hr IV CONT AYESHA Stop: 10/19/16 19:59 Last Admin: 04/23/16 20:14 Dose: 1,000 mls Sodium Chloride (Ns) 1,000 mls @ 0 mls/hr IV ONCE ONE PRN Reason: Wide Open Stop: 04/23/16 11:55 Last Admin: 04/23/16 13:00 Dose: 1,000 mls Ondansetron HCl (Zofran) 4 mg IVP EDNOW ONE Stop: 04/22/16 14:32 Last Admin: 04/22/16 14:38 Dose: 4 mg Promethazine HCl (Phenergan) 12.5 mg IVP ONCE ONE Stop: 04/22/16 16:08 Last Admin: 04/22/16 16:07 Dose: 12.5 mg Departure <Gorge Felix - Last Filed: 04/22/16 17:50> <Itz Huynh - Last Filed: 04/26/16 00:51> - Departure Disposition: [facility] Inpatient Acute Clinical Impression: Dehydration, Worsening renal function, Ileus Condition: Fair Report Scribed for: Gorge Felix Report Scribed by: Norma Coates Date of Report: 04/22/16 Time of Report: 17:06 <Gorge Felix - Last Filed: 04/22/16 17:50>
[2016-04-22 14:18] LABS: % IMMATURE GRANULYOCYTES 0.5 % (0.0-1.1); ABSOLUTE IMMATURE GRANULOCYTES 0.07 10^3/uL (0.00-0.10); ADD DIFF? NO; ADD MORPH? NO; ADD SCAN? NO; ATYPICAL LYMPHOCYTE FLAG 0 (0-99); FRAGMENT RBC FLAG 0 (0-99); HEMATOCRIT 35.4 % (38.0-47.0); HEMOGLOBIN 12.1 g/dL (12.6-16.3); LEFT SHIFT FLG 0 (0-99); LIPEMIA HEMOLYSIS FLAG 90 (0-99); MEAN CELL HEMOGLOBIN 29.8 pg (27.9-34.1); MEAN CELL HEMOGLOBIN CONCENTR. 34.2 g/dL (32.4-36.7); MEAN CELL VOLUME 87.2 fL (81.5-99.8); MEAN PLATELET VOLUME 9.8 fL (8.7-11.7); PLATELET CLUMPS FLAG 0 (0-99); PLATELET COUNT 303 10^3/uL (150-400); RED BLOOD CELL COUNT 4.06 10^6/uL (4.18-5.33); RED CELL DISTRIBUTION WIDTH 13.9 % (11.5-15.2)
[2016-04-22] MEDS ORDERED: ONDANSETRON 4 MG/2 ML VIAL IVP ONE (14:31)
[2016-04-22] MEDS ORDERED: HYDROmorphONE/DILAUDID 1 MG/ML SYR IVP ONE ×3 (14:31→15:49)
[2016-04-22 14:36] LABS: ANION GAP 15 mEq/L (8-16); CALCIUM 10.1 mg/dL (8.5-10.4); CARBON DIOXIDE 25 mEq/l (22-31); CHLORIDE 95 mEq/L (97-110); CREATININE 1.7 mg/dL (0.6-1.0); GLOMERULAR FILTRATION RATE 28; GLUCOSE 128 mg/dL (70-100); POTASSIUM 4.2 mEq/L (3.5-5.2); SODIUM 135 mEq/L (134-144)
[2016-04-22] MEDS ORDERED: PROMETHAZINE HCL 25 MG/ML INJ ONE (15:58)
[2016-04-22] MEDS ORDERED: ERTAPENEM 1 GM in NS 100 ML IV ONE (15:59)
[2016-04-22] MEDS ORDERED: PROMETHAZINE HCL 25 MG/ML INJ IVP ONE (16:07)
--- NOTE | 2016-04-22 16:48 | CT ---
CT Abdomen and Pelvis Unenhanced (Renal Stone Protocol) Indication: Abdominal pain, right nephrectomy 4 days ago. Technique: Axial unenhanced CT imaging was performed through the abdomen and pelvis, without contras t. Dose reduction techniques were utilized. Comparison: CT abdomen and pelvis March 20, 2016. Findings: Abdomen: A 5 mm nodular opacity in the left lower lobe (series #3, image #60) is unchanged, possibly related to mucous plugging or pulmonary nodule. Mild peribronchial thickening is present, with scat tered mucous plugging. There are small bilateral pleural effusions, right greater than left, with as sociated atelectasis. Three-vessel coronary artery atherosclerosis is noted. Dense mitral annular c alcifications are present. The liver has a normal unenhanced appearance. There is stable mild prominence of the common bile franklyn t, which could be related to prior cholecystectomy. The spleen and pancreas are normal. The pancrea s is atrophic. Mild fullness of the left adrenal gland is unchanged. Two nonobstructing 3 mm left r enal stones are present. There is moderate free intraperitoneal air, as well as extensive air in the subcutaneous tissues of t he right abdomen and pelvis. There are scattered slightly tubular collections in the abdomen, includ ing the right retroperitoneum (coronal series #6, image #36), suspicious for mesenteric venous gas. Punctate air collections in the jeffery hepatis appear to be related to free intraperitoneal air rather than portal venous gas. The proximal small bowel is dilated, measuring up to 4.3 cm, with associate d mesenteric edema. There is decompression of the terminal ileum, with decompressed loops of small b owel in the central abdomen in an area of mesenteric swirling, suggesting obstruction/internal hernia . There is prominent air distention of the colon, with the cecum measuring 11 cm, with smooth tapering of colonic distention in the sigmoid colon. Moderate atherosclerosis is present in a normal caliber aorta. Degenerative change is present in the spine with multilevel spinal canal narrowing. Pelvis: No bladder or distal ureteral calcifications are identified. Air in the bladder may be rel ated to instrumentation. No aggressive osseous lesions are identified. There is subcutaneous strand ing in the anterior pelvis, extending inferiorly from stranding in the abdomen, presumed related to p ostsurgical change or edema. No aggressive osseous lesions are identified. Impression: 1. Moderate free intraperitoneal air, suspicious for bowel perforation although sensitivity is reduce d by the patient's recent laparoscopic surgery. 2. Dilated proximal small bowel with decompression of ileum suggesting small bowel obstruction, whic h could be related to internal hernia. 3. Diffuse colonic distention, with smooth tapering distally, most likely related to ileus. 4. Small pleural effusions, right greater than left. 5. 5 mm left lower lobe nodule. While this could be related to mucous plugging, unenhanced CT chest is recommended for follow up in one year. 6. Small seroma/hematoma in the nephrectomy bed. 7. Additional findings, as above. Attention: This examination does not use radiographic contrast, and as such, provides only a limited evaluation of the abdomen, pelvis, and retroperitoneum. Findings discussed with Dr. Gorge Felix on April 22, 2016 at 1556 hours.
[2016-04-22] MEDS ORDERED: ONDANSETRON 4 MG/2 ML VIAL IVP PRN (19:57)
[2016-04-22] MEDS ORDERED: HYDROmorphONE/DILAUDID 1 MG/ML SYR IVP PRN (19:57)
[2016-04-22] MEDS ORDERED: ACETAMINOPHEN 325 MG TAB PO PRN (19:57)
[2016-04-22] MEDS ORDERED: ONDANSETRON 4 MG PO PRN (20:00)
--- NOTE | 2016-04-22 20:09 | PDGENHP ---
History and Physical History and Physical: HISTORY AND PHYSICAL ADMISSION NOTE CC:Abdominal pain vomiting HISTORY: This patient had been admitted here in early March with right flank pain was found have a large right renal mass suspicious for cancer. She was seen by Dr. ramirez there are plans for her to come back for surgery. However she ended up going with a surgeon at a hospital in [place] though I am unable to tell from the patient which hospital it was. She and her went right-sided nephrectomy on April 17. It sounds like she went home from the hospital 2 nights ago. She has had no bowel movement since her surgery, but had been taking in small amounts of food and passing gas at the time of discharge. She now comes in stating that she has worsening abdominal pain distension, nausea vomiting, and stopped passing gas sometime early yesterday. She has had no fevers, no bleeding, no shortness of breath. ROS: 10 system review of systems is attempted in no other specific symptoms are found, however the patient's sedation makes this evaluation somewhat unreliable and no family available at the moment PAST MEDICAL HISTORY: right renal mass status post right nephrectomy earlier this week Gout Hypertension FAMILY MEDICAL HISTORY: I am unable to determine from the patient any family history and none was listed in her previous visits here SOCIAL HISTORY: I am unable to get the details from the patient due to her sedation right now MEDICATIONS: these are reconciled in the electronic record and I have reviewed the list in detail. PHYSICAL EXAMINATION: Vital Signs: Stable without fever Examination: General: very somnolent, arousable only for brief moments to very brief conversation, which is somewhat mumbled; it appears that she is sleepy from narcotic although her respirations do not appear compromised. She does appear to be oriented to the fact that she is in the hospital and why she is here. Skin: warm, dry, good color, no rash or jaundice HEENT: normal Neck: no mass or jvd Resps: relaxed Lungs: clear breath sounds Heart: regular, no murmur Abdomen: soft, moderately distended ; bowel sounds are very infrequent and very quiet; there does not appear to be tenderness but her sedation interferes with that assessment; her abdominal wounds from surgery appear in very good condition Upper Extremities: normal Lower Extremities: no edema, warm No Bleeding or bruising Neurologic: normal speech/language, normal ultrasound tech, no focal weakness IV site: looks normal LABORATORY [place]: [place] [id number] Creatinine is up slightly at 1.7 from her previous mild renal insufficiency RADIOLOGY STUDIES: CT scan of abdomen with contrast done in the ER, my personal review of the images: There is mild to moderate distention of small bowel some filled with air some filled with fluid, with a few loops in the pelvis of probably distal ilium that appear decompressed. I cannot see a specific transition point. The colon is distended with air and stool. I do not see ascites. There is a small amount of free air probably consistent with her recent laparoscopic-assisted surgery ASSESSMENT: # postoperative ileus versus small-bowel obstruction as the cause of this patient's pain and bloating and vomiting # Dehydration # Acute and chronic renal insufficiency # Status post laparoscopic assisted nephrectomy with right renal mass removed 5 days ago at a hospital in [place] The patient was seen in the ER by Dr. Swenson who feels this is more likely to be an ileus than obstruction. However I would have some concern about the small loops of bowel in the pelvis. At this point appears her pain is reasonably controlled and she is not vomiting. She needs to be hydrated which were doing. There is not any indication to proceed to surgery at this point. PLANS: -Inpatient admission as this patient clearly will need more than 2 days to resolve her abdominal illness -IV hydration -Management of pain and nausea -Follow electrolytes closely -Minimize narcotics as able -Ambulation as often as possible, will need therapists to 8 her -Fall risk precautions DVT prophylaxis -Will attempt to get records from the hospital were she had surgery, will need to determine if this was [facility] which I could not get from the patient at this time I have reviewed the patient's case in detail with Dr. Huynh I have reviewed the patient's past medical records as part of this assessment, including previous hospital records here including physicians notes, laboratory data, imaging studies
[2016-04-22] MEDS ORDERED: ONDANSETRON DISINTEGRATING 4 MG TAB PO PRN (20:16)
--- NOTE | 2016-04-22 21:59 | SOAPPROG ---
SOAP Progress Note Assessment/Plan: Assessment: 86 FEMALE SEEN 4 DAYS AFTER NEPHRECTOMY FOR CANCER CO NAUSEA, PAIN AND DISTENTION CT SHOWS SOME FREE AIR AND MILD SUGGESTION OF SBO BUT MORE LIKELY COLONIC ILEUS HEENT-/ CHEST CLEAR/ COR RR/ ABD SOFT, DISTENDED BUT NONTENDER WO HERNIAS/ WOUNDS HEALING OK PROBABLE POSTOP ILEUS Plan: OBS/ WILL FOLLOW 04/22/16 21:56 04/22/16 21:59 Objective: Vital Signs Temp Pulse Resp BP Pulse Ox 36.6 C 101 H 18 131/70 H 98 04/22/16 20:38 04/22/16 20:38 04/22/16 20:38 04/22/16 20:38 04/22/16 20:38 04/21/16 04/22/16 04/23/16 05:59 05:59 05:59 Intake Total 1000 Balance 1000 ICD10 Worksheet Patient Problems: Problems Problem Status Diagnosed Dehydration Acute Ileus Acute Worsening renal function Acute Hematuria Acute Hydronephrosis Acute Renal mass, right Acute
[2016-04-22] MEDS: ASPIRIN EC 81 MG TAB PO SCH (22:23)
[2016-04-22] MEDS: NS 1,000 ML IV SCH (22:23)
[2016-04-22 22:38] LABS: COLOR AMBER; LEUKOCYTE ESTERASE,URINE TRACE (NEGATIVE); NITRITE,URINE NEGATIVE (NEGATIVE)
[2016-04-22 22:42] LABS: BACTERIA TRACE /hpf (NONE SEEN); RBC,URINE 50-182 /hpf (0-3)
--- NOTE | 2016-04-22 23:50 | GCON ---
[f rep st] CONSULTATION HISTORY OF PRESENT ILLNESS: The patient is an 86-year-old female seen earlier tonight in the ER, who was brought in 4 days after a right nephrectomy, complaining of some nausea and abdominal pain. CT scan in the ER suggested some free air. She has a fair amount of free subcutaneous air from her previous laparoscopic surgery procedure. It is difficult to obtain a real history from the patient, who is quite somnolent, but complains primarily of nausea and not having a bowel movement lately. She has not been eating well since her surgery, which was only 4 days ago, and has had no bowel movements since then. REVIEW OF SYSTEMS: Largely negative as contributed to by the family. PAST MEDICAL HISTORY: Includes high blood pressure, gout and kidney tumor, for which she has had a right nephrectomy. MEDICATIONS: Include amlodipine, Zofran, oxycodone, Pravachol, vitamins, and baby aspirin. ALLERGIES: CODEINE. PHYSICAL EXAMINATION: GENERAL: Reveals a somnolent 86-year-old female, who is in no acute distress. HEAD AND NECK: No icterus or adenopathy or bruits. CHEST: Symmetrical and clear. HEART: Regular rhythm. ABDOMEN: Protuberant. Soft. Not particularly tender. She has well-healing surgery scars. No real peritoneal signs. There are no hernias. EXTREMITIES: Benign with minimal edema and positive pulses. NEURO: Symmetrical despite her somnolence. IMPRESSION: This most likely represents a postoperative ileus, possibly secondary to narcotics. It does not seem that the patient has peritonitis, although she does have an elevated white count. CT scan shows a dilated colon. There is some swelling in the mesentery of the small bowel, but I do not see a definite small bowel obstruction. PLAN: She will be admitted at this time for further evaluation. Follow up serial abdominal x-rays to rule out small bowel obstruction. /[id number]/MODL MTDD
[2016-04-23] MEDS: NS 1,000 ML IV SCH ×4 (05:07→20:14)
[2016-04-23 06:17] LABS: % IMMATURE GRANULYOCYTES 0.4 % (0.0-1.1); ABSOLUTE IMMATURE GRANULOCYTES 0.05 10^3/uL (0.00-0.10); ADD DIFF? NO; ADD MORPH? NO; ADD SCAN? NO; ATYPICAL LYMPHOCYTE FLAG 0 (0-99); FRAGMENT RBC FLAG 0 (0-99); HEMATOCRIT 31.6 % (38.0-47.0); HEMOGLOBIN 10.7 g/dL (12.6-16.3); LEFT SHIFT FLG 0 (0-99); LIPEMIA HEMOLYSIS FLAG 90 (0-99); MEAN CELL HEMOGLOBIN CONCENTR. 33.9 g/dL (32.4-36.7); MEAN CELL VOLUME 88.5 fL (81.5-99.8); MEAN PLATELET VOLUME 10.2 fL (8.7-11.7); PLATELET CLUMPS FLAG 10 (0-99); PLATELET COUNT 291 10^3/uL (150-400); RED BLOOD CELL COUNT 3.57 10^6/uL (4.18-5.33); RED CELL DISTRIBUTION WIDTH 14.2 % (11.5-15.2)
[2016-04-23 06:23] LABS: ALANINE AMINOTRANSFERASE 37 IU/L (9-52); ALKALINE PHOSPHATASE 69 IU/L (38-126); ANION GAP 11 mEq/L (8-16); ASPARTATE AMINOTRANSFERASE 43 IU/L (14-46); BILIRUBIN,TOTAL 1.1 mg/dL (0.1-1.4); CALCIUM 9.1 mg/dL (8.5-10.4); CARBON DIOXIDE 24 mEq/l (22-31); CHLORIDE 101 mEq/L (97-110); CREATININE 2.1 mg/dL (0.6-1.0); GLOMERULAR FILTRATION RATE 22; GLUCOSE 95 mg/dL (70-100); POTASSIUM 3.9 mEq/L (3.5-5.2); SODIUM 136 mEq/L (134-144); TOTAL PROTEIN 5.4 g/dL (6.3-8.2)
[2016-04-23] MEDS ORDERED: ENOXAPARIN 40 MG/0.4 ML SYR SC SCH (09:00)
--- NOTE | 2016-04-23 09:14 | SOAPPROG ---
SOAP Progress Note Assessment/Plan: Assessment: 86 yo F s/p nephrectomy for renal cell carcinoma admitted with nausea, pain and distension CT on admit consistent with ileus. free air noted, but likely from surgery 5 days ago Repeat abdominal x-ray today Now passing flatus and pain resolved Advance to clear liquid diet Discharge when bowel function returned. Lives at [facility] with her . Likely home tomorrow Seen with Dr. Swenson S: feels remarkably better already. Passing flatus. Pain resolved. She feels hungry O: lying in bed, comfortable, an 80 No increased work of breathing Positive bowel sounds throughout, soft, less distended, nontender. Midline dressing intact Objective: Vital Signs Temp Pulse Resp BP Pulse Ox 36.6 C 96 20 103/58 L 93 04/23/16 08:11 04/23/16 08:11 04/23/16 08:11 04/23/16 08:11 04/23/16 08:11 Laboratory Results 04/23/16 05:42 04/23/16 05:42 04/22/16 04/23/16 04/24/16 05:59 05:59 05:59 Intake Total 1661 Output Total 50 Balance 1611 ICD10 Worksheet Patient Problems: Problems Problem Status Diagnosed Dehydration Acute Ileus Acute Worsening renal function Acute Hematuria Acute Hydronephrosis Acute Renal mass, right Acute
--- NOTE | 2016-04-23 10:18 | DX ---
Two Views of the Abdomen History: Follow-up small bowel obstruction versus ileus, post nephrectomy Comparison: CT yesterday Findings: There is still a large amount of free air in the right upper quadrant. There is persistent gaseous distention of small bowel and colon. The cecum measures 12 cm in maximum diameter compared to yesterday's CT ,10 cm. There is still gas in the rectosigmoid region. There is persistent right subc utaneous emphysema. Impression: 1. Ileus versus partial small bowel obstruction. Note that the cecum is larger than yeste rday. 2. Still free air, postop sequela versus perforation.
--- NOTE | 2016-04-23 11:43 | HOSPPROG ---
Hospitalist Progress Note Assessment/Plan: SBO vs post-op ileus - s/p nephrectomy for right renal mass, POD #6. KUB shows persistent free air, which was seen on CT. Surgery suspects this is sequela of surgery. Pt doing better today, passing flatus, tolerating clears. Will advance diet as tolerated. Repeat KUB in am. Appreciate surgery assistance. Possibly home tomorrow if does well. Right renal mass - s/p nephrectomy. Hematuria - may be result of recent nephrectomy. Will need close outpt f/u with urology. REYNOLD - Cr up to 2.1 from 1.7 yesterday. Suspect pre-renal given h/o poor oral intake over past several days vs post-op ATN. She appears slightly dry on exam (after IVF's overnight). Will check urine studies to calculate FeNa for further evaluation. Will give small NS bolus and continue maintenance fluids for now LLL pulmonary nodule - will need outpt f/u imaging to assess stability Full code DVT PPLX - Lovenox Dispo - cont inpt Subjective: PT feels much better. No more pain, passing flatus, tolerating clears. NO fevers/chills. No N/V. No CP or SOB. Objective: Vital Signs Temp Pulse Resp BP Pulse Ox 36.6 C 96 20 103/58 L 93 04/23/16 08:11 04/23/16 08:11 04/23/16 08:11 04/23/16 08:11 04/23/16 08:11 Laboratory Results 04/23/16 05:42 04/23/16 05:42 04/22/16 04/23/16 04/24/16 05:59 05:59 05:59 Intake Total 1661 Output Total 50 Balance 1611 - Physical Exam Constitutional: no apparent distress Eyes: PERRL Ears, Nose, Mouth, Throat: moist mucous membranes Cardiovascular: regular rate and rhythym Respiratory: no respiratory distress, clear to auscultation Gastrointestinal: other (+BS, hypoactive, soft, mild distention, minimal tenderness) Skin: warm Neurologic: AAOx3 Psychiatric: interacting appropriately ICD10 Worksheet Patient Problems: Problems Problem Status Diagnosed Dehydration Acute Ileus Acute Worsening renal function Acute Hematuria Acute Hydronephrosis Acute Renal mass, right Acute
[2016-04-23] MEDS ORDERED: NS 1,000 ML IV ONE (11:54)
[2016-04-23] MEDS: ASPIRIN EC 81 MG TAB PO SCH (23:59)
[2016-04-24 05:28] LABS: % IMMATURE GRANULYOCYTES 0.3 % (0.0-1.1); ABSOLUTE IMMATURE GRANULOCYTES 0.03 10^3/uL (0.00-0.10); ADD DIFF? NO; ADD MORPH? NO; ADD SCAN? NO; ATYPICAL LYMPHOCYTE FLAG 10 (0-99); FRAGMENT RBC FLAG 0 (0-99); HEMATOCRIT 26.7 % (38.0-47.0); LEFT SHIFT FLG 0 (0-99); LIPEMIA HEMOLYSIS FLAG 80 (0-99); MEAN CELL HEMOGLOBIN 29.4 pg (27.9-34.1); MEAN CELL HEMOGLOBIN CONCENTR. 33.7 g/dL (32.4-36.7); MEAN CELL VOLUME 87.3 fL (81.5-99.8); MEAN PLATELET VOLUME 9.9 fL (8.7-11.7); PLATELET CLUMPS FLAG 0 (0-99); PLATELET COUNT 238 10^3/uL (150-400); RED BLOOD CELL COUNT 3.06 10^6/uL (4.18-5.33); RED CELL DISTRIBUTION WIDTH 14.6 % (11.5-15.2)
[2016-04-24 05:53] VITALS: O2SAT 92
[2016-04-24 05:57] LABS: ANION GAP 6 mEq/L (8-16); CALCIUM 8.2 mg/dL (8.5-10.4); CARBON DIOXIDE 21 mEq/l (22-31); CHLORIDE 108 mEq/L (97-110); CREATININE 1.5 mg/dL (0.6-1.0); GLOMERULAR FILTRATION RATE 33; GLUCOSE 90 mg/dL (70-100); POTASSIUM 3.8 mEq/L (3.5-5.2); SODIUM 135 mEq/L (134-144)
[2016-04-24 08:26] VITALS: BP 123/57; PULSE 81; RESP 17; TEMP 98.3
[2016-04-24] MEDS ORDERED: ENOXAPARIN 30 MG/0.3 ML SYR SC SCH (09:00)
--- NOTE | 2016-04-24 09:31 | DX ---
KUB, Three Views History: Follow-up SBO. Postoperative. Comparison Study: April 23, 2016. Findings: Again demonstrated is persistent air-filled distention of small bowel and colon throughout the abdomen, slightly decreased in severity from previous exam. Trace pneumoperitoneum over the hepat ic dome is similar to previous study. Subcutaneous emphysema is identified over the right lower quadr ant abdominal wall. Degenerative changes are present within the right hip. Impression: 1. Persistent air-filled distention of small bowel and colon throughout, minimally decreased from one day earlier. Ileus versus distal colonic obstruction, favor ileus. 2. Trace pneumoperitoneum, stable. 3. Subcutaneous emphysema over the right abdominal wall.
--- NOTE | 2016-04-24 10:27 | SOAPPROG ---
SOAP Progress Note Assessment/Plan: Assessment: 86 yo F s/p nephrectomy for renal cell carcinoma admitted with nausea, pain and distension CT on admit consistent with ileus. free air noted, but likely from surgery last week AXR shows stable pneumoperitoneum, improvement in ileus Passing flatus and pain resolved Advance to regular diet. If tolerates, stable for discharge Discharge when bowel function returned. Likely home later today, per hospitalists Seen with Dr. Thomas S: No complaints other than hunger. She denies pain, n/v/d. Passing flatus. Tolerated clears yesterday O: lying in bed, comfortable, NAD No increased work of breathing Positive bowel sounds throughout, soft, nondistended, nontender. Midline dressing intact Objective: Vital Signs Temp Pulse Resp BP Pulse Ox 36.8 C 81 17 123/57 H 92 04/24/16 08:24 04/24/16 08:24 04/24/16 08:24 04/24/16 08:24 04/24/16 08:24 Laboratory Results 04/24/16 05:02 04/24/16 05:02 04/23/16 04/24/16 04/25/16 05:59 05:59 05:59 Intake Total 1661 3200 Output Total 50 600 400 Balance 1611 2600 -400 ICD10 Worksheet Patient Problems: Problems Problem Status Diagnosed Dehydration Acute Ileus Acute Worsening renal function Acute Hematuria Acute Hydronephrosis Acute Renal mass, right Acute
--- NOTE | 2016-04-24 11:59 | PDIAF ---
- Diagnosis Diagnosis: Renal mass, s/p nephrectomy, Post-op ileus Code Status: Full Code - Medication Management Discharge Medications: Medications to Continue on Transfer Aspirin EC [Aspirin EC 81 mg (*)] 81 mg PO HS 03/20/16 [Last Taken 04/21/16] Calcium Carbonate [Oyster Shell Calcium 500 mg (*)] 500 mg PO DAILY 03/20/16 [ Last Taken 04/22/16] Cholecalciferol Vit D3 [Vitamin D3 (*)] 1,000 units PO HS 03/20/16 [Last Taken 04/21/16] Glucosamine HCl/Chondr Tobar A Na [Glucosamine-Chondroitin Cap] 1 cap PO BID [Last Taken 04/22/16] Herbals/Supplements -Info Only 1 ea PO DAILY 03/20/16 [Last Taken Unknown] Multivitamins [Multivitamin (*)] 1 tab PO DAILY 03/20/16 [Last Taken 04/22/16] Pravastatin Sodium [Pravachol] 20 mg PO HS 03/20/16 [Last Taken 04/21/16] Vitamin B Complex [B Complex] 1 tab PO DAILY 03/20/16 [Last Taken 04/22/16] amLODIPine BESYLATE [Norvasc 5 mg (*)] 2.5 mg PO DAILY 03/20/16 [Last Taken 12/27] Ondansetron Odt [Zofran Odt 4 mg (*)] 4 mg PO Q4HRS PRN #20 tab 03/22/16 [Last Taken Unknown] oxyCODONE IR [Oxycodone Ir (*)] 5 - 10 mg PO Q3HRS PRN #20 tab 03/22/16 [Last Taken Unknown] Amoxicillin/Clavulanate Pot [Augmentin 875 MG TAB (*)] 875 mg PO BID #10 tab 02/26 [Last Taken Unknown] Discharge Medications: Refer to the Discharge Home Medication list for PRN reason. 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 My findings support the fact that the patient is homebound as defined in CMS Chapter 7 Medicare Benefits Manual 30.1.1, The condition of the patient is such that there exists a normal inability to leave home and consequently, leaving home would require a considerable and taxing effort. Diet Recommendation: no restrictions on diet Wound Care Instructions: Per Dr. Craft, surgeon, recommendations - Follow Up Care Current Providers and Referrals: Naomi Tyler MD [Primary Care Provider] - Meghna Real MD [Medical Doctor] -
--- NOTE | 2016-04-24 12:20 | PDIAF ---
- Diagnosis Diagnosis: Renal mass, s/p nephrectomy, Post-op ileus Code Status: Full Code - Medication Management Discharge Medications: Medications to Continue on Transfer Aspirin EC [Aspirin EC 81 mg (*)] 81 mg PO HS 03/20/16 [Last Taken 04/21/16] Calcium Carbonate [Oyster Shell Calcium 500 mg (*)] 500 mg PO DAILY 03/20/16 [ Last Taken 04/22/16] Cholecalciferol Vit D3 [Vitamin D3 (*)] 1,000 units PO HS 03/20/16 [Last Taken 04/21/16] Glucosamine HCl/Chondr Tobar A Na [Glucosamine-Chondroitin Cap] 1 cap PO BID [Last Taken 04/22/16] Herbals/Supplements -Info Only 1 ea PO DAILY 03/20/16 [Last Taken Unknown] Multivitamins [Multivitamin (*)] 1 tab PO DAILY 03/20/16 [Last Taken 04/22/16] Pravastatin Sodium [Pravachol] 20 mg PO HS 03/20/16 [Last Taken 04/21/16] Vitamin B Complex [B Complex] 1 tab PO DAILY 03/20/16 [Last Taken 04/22/16] amLODIPine BESYLATE [Norvasc 5 mg (*)] 2.5 mg PO DAILY 03/20/16 [Last Taken 12/27] Ondansetron Odt [Zofran Odt 4 mg (*)] 4 mg PO Q4HRS PRN #20 tab 03/22/16 [Last Taken Unknown] oxyCODONE IR [Oxycodone Ir (*)] 5 - 10 mg PO Q3HRS PRN #20 tab 03/22/16 [Last Taken Unknown] Amoxicillin/Clavulanate Pot [Augmentin 875 MG TAB (*)] 875 mg PO BID #10 tab 02/26 [Last Taken Unknown] Discharge Medications: Refer to the Discharge Home Medication list for PRN reason. PICC Care - Routine: N/A - Orders Services needed: Home Care, Certified Hand Spring Repairer, Physical Therapy Home Care Face to Face: I certify that this patient was under my care and that I had the required [id number] encounter meeting the encounter requirements on the discharge day. My findings support the fact that the patient is homebound as defined in CMS Chapter 7 Medicare Benefits Manual 30.1.1, The condition of the patient is such that there exists a normal inability to leave home and consequently, leaving home would require a considerable and taxing effort. Diet Recommendation: no restrictions on diet Wound Care Instructions: Per Dr. Craft, surgeon, recommendations - Follow Up Care Current Providers and Referrals: Meghna Real MD [Medical Doctor] - Naomi Tyler MD [Primary Care Provider] -
--- NOTE | 2016-04-24 22:02 | GDS ---
[f rep st] DISCHARGE SUMMARY DISCHARGE DIAGNOSES: 1. Postop ileus versus partial small bowel obstruction, resolved. 2. Right renal mass status post nephrectomy. 3. Urinary tract infection. 4. Acute kidney injury, improved. 5. Possible left lower lobe pulmonary nodule. CONSULTANTS: Dr. Zack Swenson. General Surgery. HISTORY: For details please see the history and physical dated April 22, [address] Wojciech morales. In brief, the patient is an 86-year-old female who recently underwent a nephrectomy for a right renal mass and presents to the Emergency Department on her 5th postoperative day reporting abdominal pain, distention, nausea, vomiting, and no bowel movement since surgery. She was admitted to the [facility] due to concern for partial small bowel obstruction versus postop ileus. HOSPITAL COURSE: The patient was admitted to the Medical-Surgical Unit. A CT scan of her abdomen wa s obtained which revealed [id number] distention of small bowel with some air-fluid levels. The re were some loops of bowel in the pelvis, likely the distal ileum, that appeared decompressed. Ther e was no specific transition point seen. The colon was distended with air and stool. A small amount of free air was noted. A general Surgery consult was obtained who felt this free air was likely sec ondary to her recent laparoscopic-assisted nephrectomy and felt that her condition was most likely re presentative of a postop ileus rather than true obstruction. She was admitted for IV hydration. She was made NPO for bowel rest. Her pain and nausea were controlled. Repeat abdominal plain film reve aled some improvement in the air-filled distention of the small bowel, again consistent with an ileus . Her condition improved with bowel rest. She began to pass flatus. Her diet was slowly advanced w hich she tolerated without recurrent vomiting. She wished to discharge home and was stable for disch arge. Of note, a urinalysis was obtained in the emergency department which revealed hematuria and mi ld pyuria. Urine culture grew greater than 100,000 Enterococcus faecalis sensitive to penicillin. S he was discharged home to complete a 5-day course of Augmentin. DISPOSITION: Patient was discharged home with home health services in stable condition. FOLLOWUP: 1. Dr. Craft, Urology, for postop followup on her nephrectomy. 2. Dr. Meghna Real, Oncology, for her right renal mass. 3. Dr. Naomi Matthews, primary care. Copy requested to: Krunal Craft MD /[id number]/MODL
== END 2016-04-24 12:52 | disposition home health service (06) | DRG 389 ==
LOC: F1N 17:58
PROVIDERS: ADMIT Internal Medicine; ATTEND Hospitalist
DX: K56.7 Ileus, unspecified (principal); N39.0 Urinary tract infection, site not specified; B95.2 Enterococcus as the cause of diseases classified elsewhere; N17.9 Acute kidney failure, unspecified; I10 Essential (primary) hypertension; R91.1 Solitary pulmonary nodule; Z98.890 Other specified postprocedural states; Z85.528 Personal history of other malignant neoplasm of kidney; Z90.5 Acquired absence of kidney
CPT/HCPCS: 96365; 97161-GP; 97165-GO; G8978-GP-CI; G8979-GP-CI; G8987-GO-CJ; G8988-GO-CI; J1170; J1335; J1650; J2405; J2550

== ENCOUNTER 2016-05-12 10:24 | Emergency (ER) | payer OTHER ==
--- NOTE | 2016-05-12 10:32 | EDPHY ---
H & P Time Seen by Provider: 05/12/16 10:30 HPI/ROS: CHIEF COMPLAINT: Rectal bleeding HISTORY OF PRESENT ILLNESS: Patient noted that over the last 2 days cleaning herself after a bowel movement took more wiping than usual. She did not have melena or blood until today. Today she wiped and noticed bright red blood on the toilet paper and then a little bit in the toilet. It was not severe and did not have clots or maroon or black in appearance. No abdominal pain and not dizzy or lightheaded. REVIEW OF SYSTEMS: Eye: no change in vision ENT: no sore throat Cardiac: no chest pain or syncope Pulmonary: no cough or SOB Abdomen: No nausea or vomiting. Musculoskeletal: no back pain Skin: No bruising or petechiae. Neuro: no headache Constitutional: no fever : no urinary symptoms A comprehensive 10 point review of systems is otherwise negative aside from elements mentioned in the history of present illness. PAST MEDICAL HISTORY: Discharge summary dated 04/24/2016 personally reviewed. Includes right nephrectomy for renal mass, postop ileus versus bowel obstruction admission at that time, urinary tract infection. Gout, and hypertension Social history: Lives independently General Appearance: Alert and conversant, cooperative. Eyes: No scleral icterus. ENT, Mouth: Normal mucous membranes. Respiratory: Normal respiratory effort, breath sounds equal, lungs are clear to auscultation. Cardiovascular: Regular rate and rhythm. Patient's heart rate is 70 to 80 on my exam in contrast to the initial heart rate noted in the triage vital signs. Gastrointestinal: Abdomen is soft and non tender. Rectal exam performed with anoscopy shows no blood proximal to the tip of the anoscope with an external inflamed and slightly bleeding hemorrhoid. Neurological: Alert and oriented x3. Normally conversant. Face symmetric, normal movement and sensation in all extremities. Skin: Warm and dry, no rashes. Musculoskeletal: No peripheral edema and no joint swelling. Psychiatric: Not agitated. Emergency Department course/MDM: Patient on exam clearly has an inflamed external hemorrhoid without evidence of upstream GI bleeding. Heart rate not elevated on my exam. Not dizzy or lightheaded. No active bleeding in ED. Smoking Status: Never smoked Constitutional: Initial Vital Signs Temperature (C) 36.7 C 05/12/16 10:27 Heart Rate 100 05/12/16 10:27 Respiratory Rate 16 05/12/16 10:27 Blood Pressure 149/88 H 05/12/16 10:27 O2 Sat (%) 97 05/12/16 10:27 O2 Delivery Mode Room Air Allergies/Adverse Reactions: codeine Allergy (Verified 04/22/16 12:25) Home Medications: Medication Instructions Recorded Aspirin EC [Aspirin EC 81 mg (*)] 81 mg PO HS 03/20/16 Calcium Carbonate [Oyster Shell 500 mg PO DAILY 03/20/16 Calcium 500 mg (*)] Cholecalciferol Vit D3 [Vitamin D3 1,000 units PO HS 03/20/16 (*)] Glucosamine HCl/Chondr Tobar A Na 1 cap PO BID 03/20/16 [Glucosamine-Chondroitin Cap] Herbals/Supplements -Info Only 1 ea PO DAILY 03/20/16 Multivitamins [Multivitamin (*)] 1 tab PO DAILY 03/20/16 Pravastatin Sodium [Pravachol] 20 mg PO HS 03/20/16 Vitamin B Complex [B Complex] 1 tab PO DAILY 03/20/16 amLODIPine BESYLATE [Norvasc 5 mg 2.5 mg PO DAILY 03/20/16 (*)] Ondansetron Odt [Zofran Odt 4 mg 4 mg PO Q4HRS PRN #20 tab 03/22/16 (*)] oxyCODONE IR [Oxycodone Ir (*)] 5 - 10 mg PO Q3HRS PRN #20 tab 03/22/16 Amoxicillin/Clavulanate Pot 875 mg PO BID #10 tab 04/24/16 [Augmentin 875 MG TAB (*)] Departure - Departure Disposition: Home, Routine, Self-Care Clinical Impression: Hemorrhoids, external Condition: Good Instructions: Hemorrhoids (ED) Additional Instructions: Return for worsening or severe bleeding, otherwise care as discussed. Referrals: Naomi Tyler MD [Primary Care Provider] - As per Instructions
[2016-05-12 10:33] VITALS: BP 149/88; PULSE 100; RESP 16; TEMP 98.1; O2SAT 97
== END 2016-05-12 10:56 | disposition home or self-care (01) ==
DX: K64.4 Residual hemorrhoidal skin tags (principal); I10 Essential (primary) hypertension; Z79.82 Long term (current) use of aspirin

== ENCOUNTER → 2016-05-14 | Outpatient (CLI) | payer OTHER ==
[~2016-05-14] MED LIST: GADOBUTROL 10 ML VIAL IVP ONE
[2016-05-14 12:19] LABS: CREATININE 1.5 mg/dL (0.6-1.0)
== END ==
LOC: FIMAGING 11:19
PROVIDERS: ATTEND Internal Medicine Hematology & Oncology
DX: C64.9 Malignant neoplasm of unspecified kidney, except renal pelvis (principal); E23.6 Other disorders of pituitary gland
CPT/HCPCS: 70553; A9585

== ENCOUNTER → 2016-05-16 | Outpatient (CLI) | payer OTHER | LOC: FIMAGING 09:51 | DX: C64.9 Malignant neoplasm of unspecified kidney, except renal pelvis (principal) | CPT/HCPCS: 78306; A9503 ==

== ENCOUNTER 2016-09-21 23:01 | Inpatient (IN) | payer OTHER, MEDICARE ==
--- NOTE | 2016-09-21 23:36 | CPEKG ---
Heart Rate: 110 RR Interval: 545 P-R Interval: 152 QRSD Interval: 134 QT Interval: 376 QTC Interval: 509 P [place]: 58 QRS [place]: -32 T Wave [place]: 121 EKG Severity - ABNORMAL ECG - EKG Impression: SINUS TACHYCARDIA EKG Impression: LEFT BUNDLE BRANCH BLOCK Electronically Signed By: Babs Jacob 22-Sep-2016 07:02:53
[2016-09-21] MEDS ORDERED: NS 1,000 ML IV ONE (23:41)
[2016-09-21 23:52] LABS: % IMMATURE GRANULYOCYTES 0.4 % (0.0-1.1); ABSOLUTE IMMATURE GRANULOCYTES 0.05 10^3/uL (0.00-0.10); ADD DIFF? NO; ADD MORPH? NO; ADD SCAN? NO; ATYPICAL LYMPHOCYTE FLAG 20 (0-99); FRAGMENT RBC FLAG 0 (0-99); HEMATOCRIT 38.6 % (38.0-47.0); LEFT SHIFT FLG 0 (0-99); LIPEMIA HEMOLYSIS FLAG 80 (0-99); MEAN CELL HEMOGLOBIN 30.3 pg (27.9-34.1); MEAN CELL HEMOGLOBIN CONCENTR. 33.7 g/dL (32.4-36.7); MEAN PLATELET VOLUME 10.2 fL (8.7-11.7); PLATELET CLUMPS FLAG 10 (0-99); PLATELET COUNT 211 10^3/uL (150-400); RED BLOOD CELL COUNT 4.29 10^6/uL (4.18-5.33); RED CELL DISTRIBUTION WIDTH 16.3 % (11.5-15.2)
[2016-09-22 00:05] LABS: ALANINE AMINOTRANSFERASE 45 IU/L (9-52); ALBUMIN 4.2 g/dL (3.5-5.0); ALKALINE PHOSPHATASE 59 IU/L (38-126); ANION GAP 12 mEq/L (8-16); ASPARTATE AMINOTRANSFERASE 45 IU/L (14-46); BILIRUBIN,TOTAL 0.9 mg/dL (0.1-1.4); BILIRUBIN-CONJUGATED 0.3 mg/dL (0.0-0.5); BILIRUBIN-UNCONJUGATED 0.6 mg/dL (0.0-1.1); CALCIUM 10.9 mg/dL (8.5-10.4); CARBON DIOXIDE 20 mEq/l (22-31); CHLORIDE 107 mEq/L (97-110); CREATININE 1.7 mg/dL (0.6-1.0); GLOMERULAR FILTRATION RATE 28; GLUCOSE 117 mg/dL (70-100); POTASSIUM 4.6 mEq/L (3.5-5.2); SODIUM 139 mEq/L (134-144); TOTAL PROTEIN 7.3 g/dL (6.3-8.2)
[2016-09-22] MEDS ORDERED: IOPAMIDOL (ISOVUE 370) 100 ML BTL IV ONE (00:13)
[2016-09-22 00:16] LABS: TROPONIN I 0.104 ng/mL (0-0.034)
[2016-09-22] MEDS ORDERED: CEPHALEXIN 500 MG CAP PO ONE (01:43)
[2016-09-22] MEDS ORDERED: SULFAMETHOX/TMP 800/160 MG 1 TAB PO ONE (01:44)
--- NOTE | 2016-09-22 02:12 | EDPHY ---
H & P Stated Complaint: SOB, nausea Time Seen by Provider: 09/21/16 23:28 HPI/ROS: HPI The patient presents with shortness of breath which began prior to arrival tonight about a few hours ago after taking her medications. She felt it was hard to take a deep breath though was inhaling deeply. She had a similar episode last night which resolved on its own and was less concerning. She says she also feels nauseated without any vomiting. She does not have any chest pain , palpitations. She says she has been clearing her throat more than usual but does not have any cough. She is currently undergoing evaluation from Dr. Barnes for a new heart murmur.. REVIEW OF SYSTEMS Constitutional: No fever, no chills. Eyes: No discharge. ENT: No sore throat. Cardiovascular: No chest pain, no palpitations. Respiratory: No cough, positive for shortness of breath. Gastrointestinal: No abdominal pain, no vomiting. Genitourinary: No hematuria. Musculoskeletal: No back pain. Skin: No rashes. Neurological: No headache. PMHx: Renal cell cancer status post nephrectomy, hypertension Soc Hx: Lives at home with her who is a dialysis patient PHYSICAL General Appearance: Alert, no distress Eyes: Pupils equal and round no pallor or injection ENT, Mouth: Mucous membranes moist Respiratory: There are no retractions, lungs are clear to auscultation with decreased breath sounds at the bases Cardiovascular: Tachycardic rate and regular rhythm Gastrointestinal: Abdomen is soft and non-tender, no masses, bowel sounds normal Neurological: A&O, moves all extremities Skin: Warm and dry, no rashes Musculoskeletal: Neck is supple non tender Extremities: symmetrical, full range of motion, no lower extremity edema Psychiatric: Patient is oriented X 3, there is no agitation Source: Patient Exam Limitations: No limitations - Personal History Current Tetanus/Diphtheria Vaccine: Yes Current Tetanus Diphtheria and Acellular Pertussis (TDAP): Yes - Medical/Surgical History Hx Asthma: No Hx Chronic Respiratory Disease: No Hx Diabetes: No Hx Cardiac Disease: No Hx Renal Disease: Yes Hx Cirrhosis: No Hx Alcoholism: No Hx HIV/AIDS: No Hx Splenectomy or Spleen Trauma: No Other PMH: appendectomy, 1 ovary removed, hysterectomy, cholecystectomy, shingles/ Htn. neprectomy 04/29 ca - Social History Smoking Status: Never smoked Constitutional: Initial Vital Signs Temperature (C) 36.6 C 09/21/16 23:13 Heart Rate 123 H 09/21/16 23:13 Respiratory Rate 24 H 09/21/16 23:13 Blood Pressure 180/93 H 09/21/16 23:13 O2 Sat (%) 86 L 09/21/16 23:13 O2 Delivery Mode Nasal Cannula O2 (L/minute) 2 Allergies/Adverse Reactions: codeine Allergy (Verified 04/22/16 12:25) Home Medications: Medication Instructions Recorded Aspirin EC [Aspirin EC 81 mg (*)] 81 mg PO HS 03/20/16 Glucosamine HCl/Chondr Tobar A Na 1 cap PO BID 03/20/16 [Glucosamine-Chondroitin Cap] Pravastatin Sodium [Pravachol] 20 mg PO HS 03/20/16 Allopurinol 09/21/16 CO Q-10 09/21/16 Medical Decision Making - Diagnostics EKG Interpretation: EKG: Complete interpretation has been separately recorded in the [employer] archive. Summary impression: Sinus tachycardia with left bundle branch block Imaging Results: Imaging Impressions Chest X-Ray 09/21/16 23:42 Impression: 1. Bibasilar atelectasis. 2. Airways disease. CT chest with IV contrast for pulmonary embolism demonstrates no PE, bilateral pleural effusions, ground-glass opacities, discussed Dr. Kahn of Radiology. Imaging: Discussed imaging studies w/ scallop cutter Radiologist, I viewed and interpreted images myself Differential Diagnosis: This is an 86-year-old female with history of renal cell carcinoma status post nephrectomy, hypertension, who presents from home with shortness of breath for the last 2 nights. On arrival she is hypoxic at about 86% on room air and tachycardic in the 120s. She has a fairly normal physical exam. Differential diagnosis includes pulmonary embolism, ACS, CHF with, pneumonia, pneumothorax. In the emergency room, the patient was given IV fluids with improvement in her tachycardia. Supplemental oxygen brought up her oxygen saturation to the high 90s. Labs revealed elevated troponin, elevated BNP of 7000, and elevated D-dimer. Because of this CT scan of chest with IV contrast was performed to evaluate for pulmonary embolism. This did not demonstrate pulmonary embolism, however did show ground-glass opacities in the lungs and bilateral pleural effusions. I feel the patient most likely has new onset CHF and given her hypoxia will require admission. I have discussed the case with the hospitalist naturopathic oncology provider Dr. Belle and she will admit the patient. - Data Points Laboratory Results: Laboratory Results 09/21/16 23:30 09/21/16 23:30 09/21/16 09/21/16 09/21/16 23:30 23:30 23:30 WBC 11.35 10^3/uL H 10^3/uL (3.80-9.50) RBC 4.29 10^6/uL 10^6/uL (4.18-5.33) Hgb 13.0 g/dL g/dL (12.6-16.3) Hct 38.6 % % (38.0-47.0) MCV 90.0 fL fL (81.5-99.8) MCH 30.3 pg pg (27.9-34.1) MCHC 33.7 g/dL g/dL (32.4-36.7) RDW 16.3 % H % (11.5-15.2) Plt Count 211 10^3/uL 10^3/uL (150-400) MPV 10.2 fL fL (8.7-11.7) Neut % (Auto) 69.4 % % (39.3-74.2) Lymph % (Auto) 21.1 % % (15.0-45.0) [place] % (Auto) 5.2 % % (4.5-13.0) Eos % (Auto) 3.3 % % (0.6-7.6) Baso % (Auto) 0.6 % % (0.3-1.7) Nucleat RBC Rel Count 0.0 % % (0.0-0.2) Absolute Neuts (auto) 7.86 10^3/uL H 10^3/uL (1.70-6.50) Absolute Lymphs (auto) 2.40 10^3/uL 10^3/uL (1.00-3.00) Absolute Monos (auto) 0.59 10^3/uL 10^3/uL (0.30-0.80) Absolute Eos (auto) 0.38 10^3/uL 10^3/uL (0.03-0.40) Absolute Basos (auto) 0.07 10^3/uL 10^3/uL (0.02-0.10) Absolute Nucleated RBC 0.00 10^3/uL 10^3/uL (0-0.01) Immature Gran % 0.4 % % (0.0-1.1) Immature Gran # 0.05 10^3/uL 10^3/uL (0.00-0.10) D-Dimer 1.16 ug/mLFEU H ug/mLFEU (0.00-0.50) Sodium 139 mEq/L mEq/L (134-144) Potassium 4.6 mEq/L mEq/L (3.5-5.2) Chloride 107 mEq/L mEq/L (97-110) Carbon Dioxide 20 mEq/l L mEq/l (22-31) Anion Gap 12 mEq/L mEq/L (8-16) BUN 42 mg/dL H mg/dL (7-23) Creatinine 1.7 mg/dL H mg/dL (0.6-1.0) Estimated GFR 28 Glucose 117 mg/dL H mg/dL (70-100) Calcium 10.9 mg/dL H mg/dL (8.5-10.4) Phosphorus 4.3 mg/dL mg/dL (2.5-4.5) Total Bilirubin 0.9 mg/dL mg/dL (0.1-1.4) Conjugated Bilirubin 0.3 mg/dL mg/dL (0.0-0.5) Unconjugated Bilirubin 0.6 mg/dL mg/dL (0.0-1.1) AST 45 IU/L IU/L (14-46) ALT 45 IU/L IU/L (9-52) Alkaline Phosphatase 59 IU/L IU/L (38-126) Troponin I 0.104 ng/mL H ng/mL (0-0.034) NT-Pro-B Natriuret Pep 6940 pg/mL H pg/mL (0-450) Total Protein 7.3 g/dL g/dL (6.3-8.2) Albumin 4.2 g/dL g/dL (3.5-5.0) Medications Given: Discontinued Medications Sodium Chloride (Ns) 1,000 mls @ 0 mls/hr IV ONCE ONE; Wide Open PRN Reason: Protocol Stop: 09/21/16 23:42 Last Admin: 09/22/16 00:05 Dose: 1,000 mls Departure - Departure Disposition: [facility] Inpatient Acute Clinical Impression: Acute exacerbation of congestive heart failure, Elevated troponin I level, Hypoxia Condition: Fair Referrals: Christel Wheeler MD [Primary Care Provider] - As per Instructions
[2016-09-22] MEDS ORDERED: ACETAMINOPHEN 325 MG TAB PO PRN (02:25)
[2016-09-22] MEDS ORDERED: ONDANSETRON DISINTEGRATING 4 MG TAB PO PRN (02:25)
[2016-09-22] MEDS ORDERED: ONDANSETRON 4 MG/2 ML VIAL IVP PRN (02:25)
--- NOTE | 2016-09-22 06:06 | GHP ---
[f rep st] HISTORY AND PHYSICAL DATE OF ADMISSION: 09/21/2016 CHIEF COMPLAINT: Shortness of breath. HISTORY OF PRESENT ILLNESS: An 86-year-old female with a recent diagnosis of renal cell carcinoma, status post right nephrectomy, who presents with sudden onset of shortness of breath the evening of presentation. Patient reports being in her normal state of health earlier in the day, normal appetite, and oral in take, when that evening approximately 7:30 p.m. developed severe shortness of breath with some assoc iated nausea, sensation of palpitations. Patient was so uncomfortable she was unable to lay flat, t herefore, presented to the emergency department for evaluation. In the ED, she denies chest pain. Denies active palpitations. Reports that her shortness of breath is better since receiving a CTA of the chest and a liter of normal saline. Patient denies any recent cough, subjective fevers or chil ls, recent sick contacts. Reports nausea, no vomiting with her episode of pain. Reports normal sto oling without blood. Denies any frequency, dysuria, or hematuria. Denies lower extremity edema or any new rashes. PAST MEDICAL HISTORY: 1. Renal cell carcinoma, status post right nephrectomy in April of 2016. 2. Gout. 3. Hypertension. FAMILY HISTORY: Negative for renal cell carcinoma. Patient lost a son to lymphoma. SOCIAL HISTORY: Negative for tobacco. Very rare alcohol. No illicit drugs or marijuana. ADVANCED DIRECTIVES: Patient is full COR, full tube. Her son and her daughter would be her medical decision makers. REVIEW OF SYSTEMS: A 10-point review of systems is negative with the exception of that reported in the HPI. PHYSICAL EXAMINATION: VITAL SIGNS: Blood pressure 165/87, heart rate 92, respiratory rate 16, 86% on room air, 99% on 2 L. GENERAL: This is a healthy-appearing, elderly female, sitting up in bed. HEENT: Notable for moist mucous membranes. EYES: Negative for any icterus. CARDIAC: Patient is regular rate and rhythm. A systolic murmur is appreciated. PULMONARY: Patient has bibasilar crac kles that sound symmetric. GASTROINTESTINAL: Positive bowel sounds. ABDOMEN: Soft and nontender in all 4 quadrants. MUSCULOSKELETAL: Negative for any lower extremity edema. SKIN: Negative for any rashes. NEUROLOGIC: Patient is alert and oriented x3. PSYCHIATRIC: She is pleasant and coope rative on interview and examination. DATA: White count 11.3, D-dimer 1.16, creatinine 1.7, BUN 42. Troponin 0.104. BNP of 6940. CTA o f the chest, which I personally reviewed and interpreted, shows no pulmonary embolism. There are gr ound-glass opacifications in both lungs. Radiology comments on peritracheal lymph nodes and bronchi tis. EKG, which I personally reviewed and interpreted, shows sinus rhythm with a left bundle branch block. ASSESSMENT AND PLAN: This is an 86-year-old female presenting with shortness of breath. 1. Acute hypoxic respiratory failure. Patient presented with a room air saturation of 86%. Laborat ory values and imaging point towards potential heart failure; however, the patient's symptoms improv ed with fluids in the emergency department. Monitor and empirically treating this evening. Admit t he patient. Monitor on telemetry. Order a complete echocardiogram in the morning to better quantif y the cause of the patient's elevation in BNP. Will not empirically diurese this evening. I have l ow suspicion clinically for pneumonia or an infectious etiology. Will repeat her CBC in the morning as I suspect the mild elevation may be stress related alone. With repeat laboratories and an echo it may be easier to make decisions related to diuretics. 2. Chronic kidney disease. Patient's creatinine is 1.7. She is status post a right nephrectomy fo r renal cell carcinoma. Again, will not empirically diurese. Recheck her labs in the morning after hydration in the emergency department. 3. Indeterminate troponin. Patient denies chest pain. She has had intermittent tachycardia in the ER. I suspect this is stress related. Will monitor her on telemetry overnight. Recheck a troponi n in the morning. She had an anticipated appointment with cardiology on the . Will place a con sult so they can assist in reviewing the patient's labs and echo when complete. 4. Renal cell carcinoma, status post right nephrectomy, and patient has been waiting on additional treatment until interval imaging. Will make [facility] aware patient is admitted and that images of her chest have been obtained in the emergency department. This may assist in dis cussions related to chemotherapy. 5. Prophylaxis. Heparin subcu in the setting of chronic kidney disease. 6. Diet. Cardiac. DISPOSITION: I expect less than 2 midnights if patient's echo is reassuring and patient's hypoxia i mproved. I have discussed the case with the emergency room physician. Patient will be triaged to t he medical-surgical floor for monitoring and care. /[id number]/MODL
[2016-09-22 06:15] LABS: ANION GAP 8 mEq/L (8-16); CARBON DIOXIDE 21 mEq/l (22-31); CHLORIDE 113 mEq/L (97-110); CREATININE 1.5 mg/dL (0.6-1.0); GLOMERULAR FILTRATION RATE 33; GLUCOSE 92 mg/dL (70-100); POTASSIUM 4.9 mEq/L (3.5-5.2); SODIUM 142 mEq/L (134-144)
[2016-09-22 06:27] LABS: TROPONIN I 0.546 ng/mL (0-0.034)
[2016-09-22] MEDS: HEPARIN 5,000 UNIT/0.5 ML SYR SC SCH ×3 (07:58→20:47)
--- NOTE | 2016-09-22 13:13 | ECHO ---
[id number] + + [address] : : [place] [address] : : [phone] + + Adult Echocardiographic Report + ------+ :Name: USAMA LAMAR MStudy Date: 09/22/2016 08:08 AM : : Hospital Admission Number: [id number] Locatio n: 214: :: 1930 Gender: Female Height: 64 in : :Age: 86 yrs Race: WH Weight: 153 lb : :Reason For Study: SOB/elevated BNP : : BSA: 1.7 meters 2 : + ------+ MMode/2D Measurements \T\ Calculations LVIDd: 4.9 cm EDV(Teich): 110.5 ml LA dimension: 5.1 cm LVOT diam: 1.8 cm LVOT area: 2.5 cm2 Normal Measurement Values: + + :LVIDd (3.5-5.7cm) IVSd (0.6-1.1cm) LVPWd (0.6-1.1cm) Aortic Root (2.0-3.7cm)Left Atrium (1.5-4.0cm): :LV Vol(d) (76-115ml) LV Vol(s) (29-48ml) Ejec Fraction (50-65%)PV Baldo (0.6- 1.2m/s) TV Baldo (0.4-1.0m/s) : :MV E Baldo (0.8-1.0m/s)MV A Baldo (0.3-1.0m/s)LVOT Baldo (0.7-1.2m/s) Asc Ao Baldo ( 0.9-1.8m/s) : + + Doppler Measurements \T\ Calculations MV E max baldo: MV V2 max: Ao V2 max: TR max baldo: 98.1 cm/sec 202.7 cm/sec 106.2 cm/sec 220.8 cm/sec MV A max baldo: MV max PG: Ao max PG: TR max P.3 cm/sec 16.4 mmHg 4.5 mmHg 19.5 mmHg MV E/A: 0.55 MV V2 mean: RAP systole: 105.0 cm/sec 5.0 mmHg MV mean PG: RVSP(TR): 5.7 mmHg 24.5 mmHg MV V2 VTI: 31.4 cm Left Ventricle The left ventricle is normal in size. There is normal left ventricular wall thickness. Left ventricular systolic function is low normal. Ejection Fraction = 50-55%. Septal motion is consistent with conduction abnormality. Regional wall motion abnormalities cannot be excluded due to limited visualization. Right Ventricle The right ventricle is normal in size and function. Atria The left atrium is mild to moderately dilated. Right atrium not well visualized. A dilated inferior vena cava suggests increased right atrial pressure. Mitral Valve Severely calcified mitral leaflets. There is no evidence of mitral valve prolapse. There is mild mitral stenosis. There is mild mitral regurgitation. Tricuspid Valve The tricuspid valve is not well visualized. There is trace tricuspid regurgitation. Aortic Valve The aortic valve is trileaflet. The aortic valve opens well. There is no aortic stenosis. Mild aortic regurgitation. Pulmonic Valve The pulmonic valve is not well visualized. There is no pulmonic valvular regurgitation. Great Vessels The aortic root is normal size. Pericardium/Pleural There is no pericardial effusion. Conclusion A complete two-dimensional transthoracic echocardiogram was performed (2D, M-mode, Doppler and color flow Doppler). The study was technically difficult. The study was technically limited. Awaiting comparison studies from [place] cardiology [place]. Left ventricular systolic function is low normal. Ejection Fraction = 50-55%. Septal motion is consistent with conduction abnormality. Regional wall motion abnormalities cannot be excluded due to limited visualization. There is mild mitral stenosis. The left atrium is mild to moderately dilated. Severely calcified mitral leaflets. There is mild mitral regurgitation. Mild aortic regurgitation. There is trace tricuspid regurgitation. Final Reading Physician: Dr Alicja Herman electronically signed on 09/22/2016 01:12 PM Ordering Physician: Madeleine Belle Performed By: Colette Lopes, [facility]
[2016-09-22] MEDS ORDERED: ASPIRIN 325 MG TAB PO ONE (13:40)
--- NOTE | 2016-09-22 13:57 | HOSPPROG ---
Hospitalist Progress Note Assessment/Plan: Dyspnea - acute onset, associated with diaphoresis and nausea, now resolved. She presented with mild hypoxia, 86% on room air, also now resolved. CTA neg for PE, some suggestion of early HF and coronary atherosclerosis noted. Trop on the rise, up to 0.5. EKG with LBBB, no prior available for review. She does report some chest pressure, but attributes this to her post-herpetic neuralgia. Overall, presenting symptoms and rising trop concerning for a coronary event. No WMA on echo. Discussed with cards. -full dose ASA now -resume statin, check lipid status -repeat trop -with elevated Cr and contrast load yesterday, will defer cath today since she is chest pain free -await further cardiology recommendations re BB, cath vs nuc stress test Hypoxemia - resolved, now on room air. BNP elevated and CT imaging (personally reviewed and interpreted) suggestive of early HF / pulmonary edema with small b/ l pleural effusions. She may benefit from a small dose of Lasix, though appears relatively euvolemic at this time. Elevated troponin - as above, cath deferred today due to elevated Cr and recent contrast load. -cont to trend CKD - Cr seems near baseline at 1.5. She received contrast yesterday followed by IVF's and Cr down to 1.5 from 1.7. Renal cell carcinoma s/p nephrectomy 04/2016 - paratracheal nodes on CT concerning for metastatic dz. She is followed by Dr. Real at [facility]. Has declined chemo at this point, unless nodes increase and cause breathing symptoms. [facility] curator of collections physician notified of admission and imaging findings. Hypertension - BP 180/100 on arrival, now 130/70's. She is not on anti- hypertensives as outpt due to hypotension caused by valsartan/hctz. -low dose metoprolol DNR Dispo - cont inpt for further cardiac w/u and risk stratification Subjective: Pt feels well. Reports some chest pressure, which she attributes to post-herpetic neuralgia. No SOB. Denies orthopnea or PND. Appetite good. Objective: Vital Signs Temp Pulse Resp BP Pulse Ox 36.7 C 80 18 135/70 H 95 09/22/16 12:00 09/22/16 12:00 09/22/16 12:00 09/22/16 12:09/22/16 12:00 Laboratory Results 09/22/16 05:56 09/21/16 09/22/16 09/23/16 05:59 05:59 05:59 Intake Total 1100 Output Total 650 Balance 450 - Physical Exam Constitutional: no apparent distress Eyes: PERRL Ears, Nose, Mouth, Throat: moist mucous membranes Cardiovascular: regular rate and rhythym, no murmur, rub, or gallop Respiratory: no respiratory distress, clear to auscultation Gastrointestinal: normoactive bowel sounds, soft, non-tender abdomen Skin: warm Musculoskeletal: full muscle strength Neurologic: AAOx3 Psychiatric: interacting appropriately ICD10 Worksheet Patient Problems: Problems Problem Status Onset Acute exacerbation of congestive heart failure Acute Elevated troponin I level Acute Hypoxia Acute Dehydration Acute Hematuria Acute Hydronephrosis Acute Ileus Acute Renal mass, right Acute Worsening renal function Acute
[2016-09-22] MEDS ORDERED: PRAVASTATIN SODIUM 40 MG TAB PO SCH (14:15)
[2016-09-22] MEDS ORDERED: ALLOPURINOL 300 MG TAB PO SCH (14:15)
[2016-09-22 14:36] LABS: CHOLESTEROL 165 mg/dL (140-220); CHOLESTEROL/HDL RATIO 2.95 RATIO (1.00-4.44); HIGH DENSITY LIPOPROTEIN 56 mg/dL (40-85); LDL/HDL RATIO 1.71 RATIO (1.00-3.22); LOW DENSITY LIPOPROTEIN 96 mg/dL (80-100); NON-HIGH DENSITY LIPOPROTEIN 109 mg/dL (90-129); TRIGLYCERIDE 69 mg/dL (35-135); VERY LOW DENSITY LIPOPROTEINS 13 mg/dL (8-25)
[2016-09-22 14:48] LABS: TROPONIN I 0.382 ng/mL (0-0.034)
[2016-09-22] MEDS ORDERED: NITROGLYCERIN 0.4 MG BTL SL ONE (18:20)
[2016-09-22] MEDS: NITROGLYCERIN 0.4 MG BTL SL PRN ×3 (18:25→19:16)
--- NOTE | 2016-09-22 18:36 | CPEKG ---
Heart Rate: 88 RR Interval: 682 P-R Interval: 164 QRSD Interval: 132 QT Interval: 432 QTC Interval: 523 P [place]: 76 QRS [place]: -37 T Wave [place]: 115 EKG Severity - ABNORMAL ECG - EKG Impression: SINUS RHYTHM EKG Impression: LEFT BUNDLE BRANCH BLOCK EKG Impression: AGREE WITH ABOVE. NO SIGNIFICANT CHANGE FROM SEPTEMBER 21, 2016 Electronically Signed By: Steven Quick 23-Sep-2016 07:01:50
[2016-09-22] MEDS: METOPROLOL TARTRATE 25 MG TAB PO SCH ×2 (18:54→18:55)
--- NOTE | 2016-09-22 20:43 | GCON ---
[f rep st] CONSULTATION DATE OF CONSULTATION: 09/22/2016 CHIEF COMPLAINT: Shortness of breath and positive troponin. HISTORY OF PRESENT ILLNESS: We are asked by Dr. Gonzales to visit with the patient. The patient is a pleasant 86-year-old female with history of hypertension and renal cell carcinoma. In April of this year, she had a right nephrectomy. She does have mediastinal lymph nodes and it is not clear whether this is metastatic disease or another process. This has been followed by Dr. Real. Other history includes dyslipidemia and known valvular heart disease. She used to be seen by a cardiologi st in [place], prior to moving to [place]. She does tell me that she has never had a diagnosis of cor onary disease and had normal stress tests in the past. She does get surveillance echocardiograms fo r her valvular heart disease. She was admitted on September 21 with acute onset dyspnea and associated nausea. This lasted for about 2 hours and occurred after eating popcorn. Her symptoms improved when she put her head between her legs. She did not have chest pain during this time. Over the past couple of weeks, she has had in termittent bilateral pain under each breast that resolved when she took off her bra. She has not lemus d palpitations or syncope. No extremity edema. In the ER, she was found to be hypoxic to 86%. She had a CT pulmonary angiogram, without PE but she did have some bilateral pleural effusions and minimally elevated troponin. EKG shows left bundle b ranch block and I do not have a previous EKG. Today, she reports feeling much better. She is no longer short of breath. She is off oxygen. No c hest pain. REVIEW OF SYSTEMS: A full 10-point Review of Systems was performed and is negative except that whic h is outlined above. CODE STATUS: DNR. PAST MEDICAL HISTORY: 1. Hypertension. 2. Valvular heart disease. 3. Renal cell carcinoma, status post fairly recent right nephrectomy. 4. Mediastinal lymphadenopathy. 5. Abnormal brain MRI. 6. Dyslipidemia. 7. Gout. OUTPATIENT MEDICATIONS: Aspirin 81 mg daily, Pravachol 40 mg daily, allopurinol 150 mg daily. SOCIAL HISTORY: Patient is . She does not smoke cigarettes or drink significant amounts of alcohol. FAMILY HISTORY: Not applicable to the current case. PHYSICAL EXAM: VITAL SIGNS: Blood pressure 132/68, heart rate 79, oxygen saturation 93% on room ai r. She is afebrile. GENERAL: Well-appearing older female in no acute distress. HEENT: Sclerae a re clear and free of jaundice. Mucous members are moist. Normocephalic, atraumatic. CARDIOVASCULA R: JVP less than 10. Carotids equal and 2+ without bruit. Regular rate and rhythm with a split S2 . LUNGS: Minimal bibasilar rales. No wheezes or rhonchi. ABDOMEN: Soft, nontender, nondistended without bruits, masses, or hepatosplenomegaly. EXTREMITIES: Warm and well-perfused without cyanos is, clubbing, or edema. NEURO: Alert and oriented x3 without gross focal neurologic deficits. Kayode ropriate mood and affect. LABORATORY DATA: White count 11.35, hematocrit 38.6, and platelets are 211. D-dimer 1.16. Sodium 142, potassium 4.9, chloride 113, bicarb 21, BUN 38, creatinine 1.5. Her creatinine has been high a s 2.1 in April. Troponin peaked at 0.5 early this morning; most recently 0.38. LDL cholesterol 96. EKG reviewed by me shows sinus rhythm with left bundle branch block. Chest x-ray, reviewed by me: Bibasilar atelectasis and airways disease. Chest CT PA: No pulmonary embolism. Small bilateral pleural effusions. Increase in the size of right paratracheal lymph nod e. Ground-glass opacities in both lungs, in the right middle lobe and the bilateral lower lobes, ri ght greater than left. Stable 2 mm pulmonary nodule. Atherosclerotic thoracic aorta. Coronary art balwinder calcifications. Echocardiogram reviewed by me: Left ventricular ejection fraction is 50% to 55% with septal wall mo tion abnormality consistent with conduction disease. Mild mitral stenosis related to calcification. Mild mitral regurgitation. Mild aortic regurgitation. ASSESSMENT/PLAN: An 86-year-old female with renal cell carcinoma, hypertension, mild valvular heart disease and coronary calcifications on CT. Admitted with acute onset dyspnea that has now resolved . She does have borderline elevated troponins and a left bundle branch block. I do not know the ch ronicity of her left bundle branch block. Her echocardiogram does not show significant ischemic wal l motion abnormalities. 1. Dyspnea/transient hypoxia/positive troponin: This sounds like flash pulmonary edema. Could be related to coronary disease. I wonder if she is having some compressive problems from her mediastin al lymphadenopathy. She was not particularly hypertensive in the ER and states that she was not hyp ertensive at home but her initial blood pressure in the ER was 180/93, so this actually could be a m ild form of hypertensive urgency that has resolved with improvement in her blood pressure. I had a long discussion with the patient about further evaluation of her coronary arteries. Cardiac cathete rization will be high risk, given her solitary kidney and abnormal creatinine. She agrees that she would like a more conservative approach. We will proceed with Lexiscan nuclear stress test for furt her evaluation. Continue aspirin and statin. I have added low-dose beta mariana for cardio protect ion. 2. Hypertension: High in the ER. Could be contributing to her intermittent dyspnea. Add beta blo cker. She states that she was recently taken off her antihypertensives in the outpatient setting. We will follow this. 3. History of renal cell cancer, status post nephrectomy. Mediastinal lymph nodes. She is followe d by Dr. Real. I wonder if she is getting some compressive symptoms from the mediastinal lymphaden opathy. 4. Dyslipidemia: LDL is reasonable. Continue statin. 5. History of abnormal brain MRI: This has been reviewed by Neurology and Oncology and does not ap pear to be metastatic disease, although followup imaging has not yet been performed. Thank you for allowing us to participate in this patient's care. Will follow with you. /[id number]/MODL
[2016-09-23] MEDS: HEPARIN 5,000 UNIT/0.5 ML SYR SC SCH ×3 (06:01→21:29)
--- NOTE | 2016-09-23 09:12 | PDCARPN ---
Cardiology Progress Note Assessment/Plan: Assessment/plan: 86-year-old female with hypertension, renal cell carcinoma status post right nephrectomy in April of this year, mild valvular heart disease. She was admitted on September 21 with sudden-onset dyspnea and minimally elevated troponin as well as elevated BNP. She has a left bundle branch block, chronicity unknown. 1. Dyspnea/minimally elevated troponin/elevated BNP: This appears to be diastolic heart failure. Likely related to intermittent hypertension. Her systolic blood pressure is 180 in the ER. She tells me that she was recently taken off of her antihypertensives in the outpatient setting. Start low-dose beta mariana. Avoid angiotensin receptor mariana or SEDA inhibitor in the setting of her fluctuating renal function. She does not appear total body volume overloaded, so we have held off on diuresis. Continue aspirin statin. She is very high risk for coronary angiogram given her age and solitary kidney with abnormal GFR. For further evaluation of her coronary circulation she will have a Lexiscan nuclear stress test today. Unless this shows a large territory of myocardial ischemia, I recommend continued medical management. 2. Hypertension: As above. Avoid hypotension in the setting of her abnormal GFR. 3. Renal cell carcinoma status post nephrectomy. She also has mediastinal lymphadenopathy. This has not been biopsied. Follows with Dr. Real. In general she has preferred conservative management. She also has abnormal brain MRI, again unlikely metastatic disease but has not been imaged serially. 4. Valvular heart disease: She has a normal ejection fraction with mild mitral stenosis and mild aortic regurgitation. Her mitral stenosis could have contributed to her dyspnea if she became significantly hypertensive or tachycardic. Beta-blockers can be helpful in this setting. 5. Dyslipidemia: Continue statin. 09/23/16 09:30 Subjective: Aleja slept well last night. Around 6:30 p.m. last night she did complain of bilateral chest constriction. She was given nitroglycerin x3 without significant improvement. The pain lasted for about an hour. She also received the beta-mariana that we had started. She reports this morning no chest pain or shortness of breath. Reviewed/Discussed With: family Objective: Vital Signs (8 Hrs) Temp Pulse Resp BP Pulse Ox 09/23/16 07:48 36.8 C 75 10 L 110/49 L 91 L 09/23/16 04:00 36.4 C 90 18 143/76 H 97 Intake/Output (24 Hrs) 09/22/16 09/23/16 09/24/16 05:59 05:59 05:59 Intake Total 1250 Balance 1250 Intake: Oral (ml) 1250 Other: Intake Quantity Yes Sufficient Number of Voids Toilet 2 No acute distress. Sitting up in chair JVP 10 cm of water. Regular rate and rhythm with a fixed split S2. Bibasilar rales no wheezes or rhonchi. Abdomen soft and nontender. Extremities are warm and well perfused without cyanosis clubbing or edema Neuro alert and oriented x3 without gross focal neurologic deficits Result Diagrams: 09/21/16 23:30 09/22/16 05:56 Cardiac Labs: Cardiac Lab Results (72 Hrs) 09/23/16 06:25 Troponin I 0.194 H EKG: From yesterday evening reviewed. Sinus rhythm. Known left bundle branch block. Telemetry: Normal sinus rhythm ICD10 Worksheet Patient Problems: Problems Problem Status Onset Hydronephrosis Acute Renal mass, right Acute Hematuria Acute Dehydration Acute Worsening renal function Acute Ileus Acute Acute exacerbation of congestive heart failure Acute Elevated troponin I level Acute Hypoxia Acute
[2016-09-23 09:38] LABS: ANION GAP 8 mEq/L (8-16); CARBON DIOXIDE 19 mEq/l (22-31); CHLORIDE 111 mEq/L (97-110); CREATININE 1.4 mg/dL (0.6-1.0); GLOMERULAR FILTRATION RATE 36; GLUCOSE 81 mg/dL (70-100); POTASSIUM 4.5 mEq/L (3.5-5.2); SODIUM 138 mEq/L (134-144)
[2016-09-23] MEDS ORDERED: REGADENOSON 0.4 MG/5 ML SYR IVP ONE (13:31)
[2016-09-23] MEDS: METOPROLOL TARTRATE 25 MG TAB PO SCH ×2 (14:30→21:30)
[2016-09-23] MEDS: NITROGLYCERIN 0.4 MG BTL SL PRN (14:36)
[2016-09-23] MEDS ORDERED: FUROSEMIDE 20 MG TAB PO ONE (15:49)
--- NOTE | 2016-09-23 15:49 | HOSPPROG ---
Hospitalist Progress Note Assessment/Plan: 86 yo F with hx of CKD, RCC s/p nephrectomy, poorly controlled HTN presenting with acute hypoxic respiratory failure # acute hypoxic respiratory failure: initially with elizabeth and o2 sats in mid 80s on RA. CTA and cxr personally reviewed and notable for small bilateral pleural effusions and mild pulmonary edema as next. O2 needs have improved though still intermittently requiring supplemental o2. # acute on chronic diastolic heart failure: as above has e/o volume overload, presumably this is due to intermittent poorly controlled htn, however ischemic heart disease also possible. Nuc stress today for further eval. Likely would benefit from low dose lasix, caution given ckd/solitary kidney. Will start lasix 20 daily # elevated trop/lbbb: trop peaking at 0.5 and trending slowly back down, ecg without acute changes during hospitalization, echo w/o wall motion abnml. Plan for stress test as above, so long as this is not grossly abnormal continue med mgmt given high risk of worsening renal function with cath # felix on ckd: with baseline creat of approximately 1.5, now back to baseline # RCC: w/p nephrectomy, has mediastinal LAD concerning for metastatic disease and abnormal brain mri requiring further imaging, followed by onc # htn: continue metoprolol currently well controlled # post herpetic neuralgia # DNR IP status, will need > 48 hours for eval/mgmt of above Patient new to my care. Old records reviewed and summarized as above. Subjective: no significant overnight events, patient currently feeling well, eager for dc, does still have intermittent sob but not as bad as before Objective: Vital Signs Temp Pulse Resp BP Pulse Ox 36.7 C 83 15 148/55 H 96 09/23/16 11:19 09/23/16 14:33 09/23/16 14:33 09/23/16 14:33 09/23/16 14:33 Laboratory Results 09/23/16 06:15 09/22/16 09/23/16 09/24/16 05:59 05:59 05:59 Intake Total 1250 Balance 1250 awake alert nad anicteric op clear rrr no mrg cta b soft nt nd no cce warm dry well perfused oriented appropriate ICD10 Worksheet Patient Problems: Problems Problem Status Onset Acute exacerbation of congestive heart failure Acute Elevated troponin I level Acute Hypoxia Acute Dehydration Acute Hematuria Acute Hydronephrosis Acute Ileus Acute Renal mass, right Acute Worsening renal function Acute
[2016-09-23] MEDS ORDERED: ALLOPURINOL 300 MG TAB PO SCH (18:00)
[2016-09-23] MEDS ORDERED: PRAVASTATIN SODIUM 40 MG TAB PO SCH (18:00)
[2016-09-23] MEDS ORDERED: ASPIRIN EC 81 MG TAB PO SCH (21:00)
--- NOTE | 2016-09-24 01:16 | CPR ---
[f rep st] NONINVASIVE CARDIAC PROCEDURE REPORT PROCEDURE PERFORMED: Lexiscan injection of a Lexiscan myocardial perfusion imaging study. INDICATION FOR PROCEDURE: Patient with shortness of breath, left bundle-branch block, and indetermi kae troponin level. PRE: After obtaining informed consent and ensuring patient's n.p.o. status of caffeine for greater than 12 hours, patient was placed on electrocardiogram. Initial EKG showed sinus rhythm with left b undle-branch block. Patient denies of any chest pain, shortness of breath, or symptoms suggesting o f ischemia. Initial blood pressure 126/80, saturation 92% on room air. INJECTION: Patient was given Lexiscan slow IV push followed by nuclear isotope. During the followi ng 5 minutes, no significant EKG changes or arrhythmias noted. The patient did report within 1 wei te of injection of a mild "bandlike" pressure across her midsternum. Her blood pressure and saturat ions remained stable. The patient was given caffeinated beverage, and within 5 minutes all symptoms subsided. Again, no significant EKG changes made postinjection. Vital signs are stable. Patient is finishing poststress MPI imaging in Nuclear Medicine at this time. IMPRESSION: 86-year-old female admitted with shortness of breath, found to have mildly-elevated tro ponins and left bundle-branch block, undergoing Lexiscan MPI study. The patient reporting mild ches t-like pressure as a bandlike sensation across her chest within 1 minute of injection but resolving within 5 with caffeinated beverage. Vital signs remained stable. No significant EKG changes with L exiscan injection. Pending MPI imaging series results. /[id number]/MODL
[2016-09-24 04:50] LABS: % IMMATURE GRANULYOCYTES 0.4 % (0.0-1.1); ABSOLUTE IMMATURE GRANULOCYTES 0.03 10^3/uL (0.00-0.10); ADD DIFF? NO; ADD MORPH? NO; ADD SCAN? NO; ATYPICAL LYMPHOCYTE FLAG 30 (0-99); FRAGMENT RBC FLAG 0 (0-99); HEMATOCRIT 32.2 % (38.0-47.0); HEMOGLOBIN 10.9 g/dL (12.6-16.3); LEFT SHIFT FLG 0 (0-99); LIPEMIA HEMOLYSIS FLAG 90 (0-99); MEAN CELL HEMOGLOBIN 30.4 pg (27.9-34.1); MEAN CELL HEMOGLOBIN CONCENTR. 33.9 g/dL (32.4-36.7); MEAN CELL VOLUME 89.9 fL (81.5-99.8); MEAN PLATELET VOLUME 11.2 fL (8.7-11.7); PLATELET CLUMPS FLAG 0 (0-99); PLATELET COUNT 188 10^3/uL (150-400); RED BLOOD CELL COUNT 3.58 10^6/uL (4.18-5.33); RED CELL DISTRIBUTION WIDTH 15.9 % (11.5-15.2)
[2016-09-24 05:00] LABS: ANION GAP 10 mEq/L (8-16); CALCIUM 9.9 mg/dL (8.5-10.4); CARBON DIOXIDE 20 mEq/l (22-31); CHLORIDE 109 mEq/L (97-110); CREATININE 1.4 mg/dL (0.6-1.0); GLOMERULAR FILTRATION RATE 36; GLUCOSE 84 mg/dL (70-100); POTASSIUM 4.1 mEq/L (3.5-5.2); SODIUM 139 mEq/L (134-144)
[2016-09-24 05:08] VITALS: TEMP 98.1
[2016-09-24] MEDS: HEPARIN 5,000 UNIT/0.5 ML SYR SC SCH (06:09)
[2016-09-24 08:00] VITALS: BP 119/56; PULSE 73; RESP 18; O2SAT 95
--- NOTE | 2016-09-24 08:53 | PDCARPN ---
Cardiology Progress Note Chief Complaint: No complaints today. Fair sleep overnight. Assessment/Plan: Assessment: Patient is an 86 y/o female with history of renal cell carcinoma s/p nephrectomy (Apr 2016) with HTN who presented with HTN urgency and shortness of breath. Unclear etiology for the symptoms that were noted. Blood pressure control has been much better. No ACEi/ARB with renal insufficiency (Creatinine was 1.7, down to 1.4 at present). Beta mariana therapy was started yesterday, and pressures today have been very well controlled. Stress testing yesterday with no appreciable ECG changes noted with Adyan, and images with normal LVEF (56 %), but suggestion of anteroseptal infarction (minimal reversibility). Query attenuation from breast. Today, the patient is feeling well. No cardiovascular complaints. Blood pressures today, as stated above, are very well controlled. Patient very much wanting to go home. She is not interested in invasive cardiovascular testing. Plan: (1) I think that the patient could be sent home, but I recommended outpatient follow up with cardiology in one week for further discussion about testing options as well as reassessment of blood pressures on beta mariana therapy (2) Would continue therapy on statins for HLP history (3) Low dose ASA should be continued Stress testing could be breast attenuation (there was grossly normal wall motion in the majority of the territory involved in "infarction"). Reading on the study with "low normal" left ventricular systolic ejection fraction, but EF was 56%. There was only a "small" amount of reversibility noted - and this would be the only myocardium that could benefit from an intervention. Given these findings, as well as a patient with a lack of current symptoms as well as one kidney (with creatinine elevation still noted), would refrain from invasive , contrast involved, cardiovascular procedure. Subjective: No cardiovascular complaints. Reviewed/Discussed With: hospitalist, multidisciplinary team Objective: Vital Signs (8 Hrs) Temp Pulse Resp BP Pulse Ox 09/24/16 07:58 36.7 C 73 18 119/56 L 95 09/24/16 04:00 36.7 C 76 15 138/65 H 97 Intake/Output (24 Hrs) 09/23/16 09/24/16 09/25/16 05:59 05:59 05:59 Intake Total 1250 1000 Balance 1250 1000 Intake: Oral (ml) 1250 1000 Other: Weight 66.366 kg Intake Quantity Yes Yes Sufficient Number of Voids Toilet 2 2 Result Diagrams: 09/24/16 03:51 09/24/16 03:51 Cardiac Labs: Cardiac Lab Results (72 Hrs) 09/23/16 06:25 Troponin I 0.194 H Telemetry: Sinus rhythm with BBB (left) - Physical Exam Constitutional: WDWN, healthy appearing, no apparent distress Eyes: PERRL, EOMI Ears, Nose, Mouth, Throat: moist mucous membranes Cardiovascular: regular rate and rhythm, no murmurs, no rubs, no gallops, pulses symmetric bilat, No jugular vein distention Peripheral Pulses: 2+: dorsalis-pedis (R), dorsalis-pedis (L) Respiratory: clear to auscultate bilat, no crackles, no wheezes Gastrointestinal: normoactive bowel sounds Skin: no rashes, no edema Musculoskeletal: no muscular tenderness Neurologic: AAOx3, CN II-XII grossly intact Psychiatric: cooperative, interactive, following commands ICD10 Worksheet Patient Problems: Problems Problem Status Onset Acute exacerbation of congestive heart failure Acute Elevated troponin I level Acute Hypoxia Acute Dehydration Acute Hematuria Acute Hydronephrosis Acute Ileus Acute Renal mass, right Acute Worsening renal function Acute
[2016-09-24] MEDS ORDERED: FUROSEMIDE 20 MG TAB PO SCH (09:00)
[2016-09-24] MEDS: METOPROLOL TARTRATE 25 MG TAB PO SCH (09:27)
--- NOTE | 2016-09-24 09:37 | PDDCSUM ---
Discharge Summary Discharge Summary: Dates of service 09/23-09/24/16 Discharge dx: # acute hypoxic respiratory failure # acute on chronic diastolic heart failure # elevated trop/LBBB # felix on ckd # RCC # HTN # post herpetic neuralgia Consultations: cardiology Procedures performed: CTA, echo, nuclear stress test Hospital course by problem: # acute hypoxic respiratory failure: initially with elizabeth and o2 sats in mid 80s on RA. CTA and cxr personally reviewed and notable for small bilateral pleural effusions and mild pulmonary edema as next--underlying etiology. O2 needs have improved and now on RA. # acute on chronic diastolic heart failure: as above has e/o volume overload and pulmonary edema, presumably this is due to intermittent poorly controlled htn. Nuc stress abnormal but on review with cardiology they do not feel this represents true ischemia, rather more likely breast attenuation. Patient does not want to continue lasix, she states her renal MD has her on a PRN diuretic ( she cannot recall the name), and would prefer to take that. Discussed with her obtaining daily weights. F/u with cardiology in one week. # elevated trop/lbbb: trop peaking at 0.5 and trending slowly back down, ecg without acute changes during hospitalization, echo w/o wall motion abnml. Plan for stress test as above, so long as this is not grossly abnormal continue med mgmt given high risk of worsening renal function with cath # felix on ckd: with baseline creat of approximately 1.5, now back to baseline. Does have solitary kidney and caution to avoid nephrotoxins. # RCC: w/p nephrectomy, has mediastinal LAD concerning for metastatic disease and abnormal brain mri requiring further imaging, followed by onc # htn: continue metoprolol currently well controlled # post herpetic neuralgia # DNR DC home f/u with cardiology, pcp, renal, oncology > 35 minutes spent in dc, more than half in coordination of care and face to face counseling of patient regarding f/u care plans
--- NOTE | 2016-09-24 09:38 | PDIAF ---
- Diagnosis Code Status: Do Not Resuscitate - Medication Management Discharge Medications: Medications to Continue on Transfer Aspirin EC [Aspirin EC 81 mg (*)] 81 mg PO HS 03/20/16 [Last Taken 09/21/16] Allopurinol [Allopurinol 300 MG (RX)] 150 mg PO DAILY 09/22/16 [Last Taken 09/21] Pravastatin Sodium [Pravachol] 40 mg PO DAILY 09/22/16 [Last Taken 09/21/16] Acetaminophen [Tylenol 325mg (*)] 650 mg PO Q4HRS PRN #0 tab 09/24/16 [Last Taken Unknown] Metoprolol Tartrate [Lopressor 25 mg (*)] 12.5 mg PO BID #60 tab 09/24/16 [Last Taken Unknown] Discharge Medications: Refer to the Discharge Home Medication list for PRN reason. - Orders Services needed: Home Care, Registered Nurse Home Care Face to Face: I certify that this patient was under my care and that I had the required [id number] encounter meeting the encounter requirements on the discharge day. My findings support the fact that the patient is homebound as defined in CMS Chapter 7 Medicare Benefits Manual 30.1.1, The condition of the patient is such that there exists a normal inability to leave home and consequently, leaving home would require a considerable and taxing effort. Diet Recommendation: sodium restricted Weigh Patient: daily - Labs/Radiology BMP Date: 09/26/16 (notify Dr. Patricio, [facility]) - Follow Up Care Current Providers and Referrals: Chritsel Wheeler MD [Medical Doctor] - As per Instructions Alicja Herman MD [Medical Doctor] - follow up in 1 week
== END 2016-09-24 11:10 | disposition home health service (06) | DRG 291 ==
LOC: F2W 09-22 03:12 → OBSVTOIN 09-22 16:21
PROVIDERS: ADMIT Hospitalist; ATTEND Hospitalist
DX: I13.0 Hypertensive heart and chronic kidney disease with heart failure and stage 1 through stage 4 chronic kidney disease, or unspecified chronic kidney disease (principal); I50.33 Acute on chronic diastolic (congestive) heart failure; J96.01 Acute respiratory failure with hypoxia; B02.29 Other postherpetic nervous system involvement; N17.9 Acute kidney failure, unspecified; C64.1 Malignant neoplasm of right kidney, except renal pelvis; N18.9 Chronic kidney disease, unspecified; Z90.5 Acquired absence of kidney; I44.7 Left bundle-branch block, unspecified; E78.5 Hyperlipidemia, unspecified; Z66 Do not resuscitate
CPT/HCPCS: 97116-GP; 97161-GP; 97165-GO; A9500; G8978-GP-CI; G8978-GP-CJ; G8979-GP-CI; G8980-GP-CI; G8987-GO-CI; G8988-GO-CI; G8989-GO-CI; J2785; Q9967

== ENCOUNTER 2016-10-20 22:27 | Inpatient (IN) | payer OTHER, MEDICARE ==
[2016-10-20] MEDS ORDERED: FUROSEMIDE 20 MG/2 ML VIAL ONE (22:31)
[2016-10-20] MEDS ORDERED: DILTIAZEM 25 MG/5 ML VIAL IVP ONE (22:32)
[2016-10-20 22:41] LABS: % IMMATURE GRANULYOCYTES 0.2 % (0.0-1.1); ABSOLUTE IMMATURE GRANULOCYTES 0.03 10^3/uL (0.00-0.10); ADD DIFF? NO; ADD MORPH? NO; ADD SCAN? YES; ATYPICAL LYMPHOCYTE FLAG 20 (0-99); FRAGMENT RBC FLAG 0 (0-99); HEMATOCRIT 41.4 % (38.0-47.0); HEMOGLOBIN 13.4 g/dL (12.6-16.3); LEFT SHIFT FLG 0 (0-99); LIPEMIA HEMOLYSIS FLAG 80 (0-99); MEAN CELL HEMOGLOBIN 30.7 pg (27.9-34.1); MEAN CELL HEMOGLOBIN CONCENTR. 32.4 g/dL (32.4-36.7); MEAN PLATELET VOLUME 11.2 fL (8.7-11.7); PLATELET CLUMPS FLAG 10 (0-99); PLATELET COUNT 205 10^3/uL (150-400); RED BLOOD CELL COUNT 4.36 10^6/uL (4.18-5.33); RED CELL DISTRIBUTION WIDTH 15.6 % (11.5-15.2)
[2016-10-20 22:47] LABS: ANION GAP 16 mEq/L (8-16); CALCIUM 10.3 mg/dL (8.5-10.4); CARBON DIOXIDE 20 mEq/l (22-31); CHLORIDE 102 mEq/L (97-110); CREATININE 1.7 mg/dL (0.6-1.0); GLOMERULAR FILTRATION RATE 28; GLUCOSE 238 mg/dL (70-100); POTASSIUM 4.2 mEq/L (3.5-5.2); SODIUM 138 mEq/L (134-144)
--- NOTE | 2016-10-20 22:48 | CPEKG ---
Heart Rate: 146 RR Interval: 411 QRSD Interval: 144 QT Interval: 364 QTC Interval: 568 QRS [place]: -32 T Wave [place]: 106 EKG Severity - ABNORMAL ECG - EKG Impression: WIDE COMPLEX TACHYCARDIA EKG Impression: LEFT BUNDLE BRANCH BLOCK Electronically Signed By: Christopher Collins 21-Oct-2016 06:11:13
[2016-10-20] MEDS ORDERED: FUROSEMIDE 40 MG/4 ML VIAL IVP ONE (22:49)
--- NOTE | 2016-10-20 22:50 | EDPHY ---
H & P Stated Complaint: SOB Time Seen by Provider: 10/20/16 22:29 HPI/ROS: Chief Complaint: Shortness of breath HPI: 86-year-old woman with past medical history of hypertension, chronic renal insufficiency, renal cell carcinoma status post nephrectomy in April 2016. Patient had the sudden onset of shortness of breath at about 10 o'clock this evening while at rest. She has similar episode a month ago was seen in the hospital. Patient denies any chest pain. No nausea or vomiting. No fainting or lightheadedness. No recent illness. No cough. No fevers or chills. Per EMS the patient was satting in the mid 80s on arrival. She was given a DuoNeb with saturations up to 92%. ROS: 10 point Review of Systems is negative except as noted in the HPI. PMH: Renal cell current [place] status post nephrectomy in April,, hypertension, gout, left bundle-branch block, chronic kidney disease, Social History: No smoking, no alcohol, no recreational drug use Family History: non-contributory Physical Exam: Gen: Awake, Alert, tachypneic, in severe respiratory distress HEENT: Nose: no rhinorrhea Eyes: PERRLA, EOMI Mouth: Moist mucosa Neck: Supple, no JVD, jugular venous distension Chest: nontender, diffuse rales to the upper lung zones bilaterally Heart: Tachycardic to the 140's Abd: Soft, non-tender, no guarding Back: no CVA tenderness, no midline tenderness Ext: no edema, non-tender Skin: no rash Neuro: CN II-XII intact, Sensation grossly intact, Strength 5/5 in bilateral upper and lower extremities - Medical/Surgical History Hx Asthma: No Hx Chronic Respiratory Disease: No Hx Diabetes: No Hx Cardiac Disease: No Hx Renal Disease: Yes Hx Cirrhosis: No Hx Alcoholism: No Hx HIV/AIDS: No Hx Splenectomy or Spleen Trauma: No Other PMH: appendectomy, 1 ovary removed, hysterectomy, cholecystectomy, shingles/ Htn. neprectomy 04/29 ca - Social History Smoking Status: Never smoked Constitutional: Initial Vital Signs Temperature (C) 36.2 C 10/20/16 22:30 Heart Rate 133 H 10/20/16 22:30 Respiratory Rate 36 H 10/20/16 22:30 Blood Pressure 197/118 H 10/20/16 22:30 O2 Sat (%) 84 L 10/20/16 22:30 O2 Delivery Mode Bi-Pap O2 (L/minute) 15 Allergies/Adverse Reactions: codeine Allergy (Verified 04/22/16 12:25) Home Medications: Medication Instructions Recorded Aspirin EC [Aspirin EC 81 mg (*)] 81 mg PO HS 03/20/16 Allopurinol [Allopurinol 300 MG 150 mg PO DAILY 09/22/16 (RX)] Pravastatin Sodium [Pravachol] 40 mg PO DAILY 09/22/16 Acetaminophen [Tylenol 325mg (*)] 650 mg PO Q4HRS PRN #0 tab 09/24/16 Metoprolol Tartrate [Lopressor 25 12.5 mg PO BID #60 tab 09/24/16 mg (*)] Medical Decision Making - Diagnostics EKG Interpretation: ECG time 10:33 p.m., regular tachycardia with a rate of 148, there is a left bundle branch morphology which is unchanged compared to an ECG of 21 September 2016. ED Course/Re-evaluation: Patient arrived to room 2 tachycardic and tachypneic. She had diffuse rales. Patient was started on BiPAP immediately. Chest x-ray confirmed the congestive heart failure. ECG showed an old left bundle branch block with no new changes. Laboratory data has been sent. Lasix, 40 mg IV was ordered. 2254 patient is significantly improved. Heart rate is now 101. Blood pressure is 140/114. She is speaking in full sentences. 2355 patient feeling much better. She is tolerating the BiPAP well. Heart rate is 87, oxygen saturations 99%, blood pressure is 127/85. I have discussed with Dr. Gonzales, hospitalist. She will admit to the Step-Down Unit for further care and observation. Critical Care Time: I spent a total of 40 minutes of critical care time in obtaining history, performing a physical exam, bedside monitoring of interventions, collecting and interpreting tests and discussion with consultants but not including time spent performing procedures. - Data Points Laboratory Results: Laboratory Results 10/20/16 22:30 10/20/16 22:30 10/20/16 10/20/16 10/20/16 22:44 22:37 22:30 WBC 16.20 10^3/uL H 10^3/uL (3.80-9.50) RBC 4.36 10^6/uL 10^6/uL (4.18-5.33) Hgb 13.4 g/dL g/dL (12.6-16.3) POC Hgb 13.9 gm/dL gm/dL (12.6-16.3) Hct 41.4 % % (38.0-47.0) POC Hct 41 % % (38-47) MCV 95.0 fL fL (81.5-99.8) MCH 30.7 pg pg (27.9-34.1) MCHC 32.4 g/dL g/dL (32.4-36.7) RDW 15.6 % H % (11.5-15.2) Plt Count 205 10^3/uL 10^3/uL (150-400) MPV 11.2 fL fL (8.7-11.7) Neut % (Auto) 33.6 % L % (39.3-74.2) Lymph % (Auto) 55.0 % H % (15.0-45.0) Delta % (Auto) 4.6 % % (4.5-13.0) Eos % (Auto) 5.9 % % (0.6-7.6) Baso % (Auto) 0.7 % % (0.3-1.7) Nucleat RBC Rel Count 0.0 % % (0.0-0.2) Absolute Neuts (auto) 5.43 10^3/uL 10^3/uL (1.70-6.50) Absolute Lymphs (auto) 8.91 10^3/uL H 10^3/uL (1.00-3.00) Absolute Monos (auto) 0.75 10^3/uL 10^3/uL (0.30-0.80) Absolute Eos (auto) 0.96 10^3/uL H 10^3/uL (0.03-0.40) Absolute Basos (auto) 0.12 10^3/uL H 10^3/uL (0.02-0.10) Absolute Nucleated RBC 0.00 10^3/uL 10^3/uL (0-0.01) Immature Gran % 0.2 % % (0.0-1.1) Seg Neutrophils % 36 % % Lymphocytes % 54 % % Monocytes % 5 % % Eosinophils % 5 % % Immature Gran # 0.03 10^3/uL 10^3/uL (0.00-0.10) Absolute Seg Neuts 5.83 10^/uL 10^/uL (1.70-6.50) Absolute Lymphocytes 8.75 10^3/uL H 10^3/uL (1.00-3.00) Absolute Monocytes 0.81 10^3/uL H 10^3/uL (0.30-0.80) Absolute Eosinophils 0.81 10^3/uL H 10^3/uL (0.03-0.40) Atypical Lymphocytes 1+ H Platelet Estimate ADEQUATE (ADEQ) Smear Review By Pending VBG Lactic Acid 3.1 mmol/L H mmol/L (0.7-2.1) POC Sodium 139 mEq/L mEq/L (134-144) Sodium POC Potassium 3.8 mEq/L mEq/L (3.3-5.0) Potassium POC Chloride 103 mEq/L mEq/L (97-110) Chloride Carbon Dioxide Anion Gap POC BUN 39 mg/dL H mg/dL (7-23) BUN Creatinine POC Creatinine 1.8 mg/dL H mg/dL (0.6-1.0) Estimated GFR Glucose POC Glucose 352 mg/dL H mg/dL (70-100) Calcium Troponin I 10/20/16 22:30 WBC RBC Hgb POC Hgb Hct POC Hct MCV MCH MCHC RDW Plt Count MPV Neut % (Auto) Lymph % (Auto) Delta % (Auto) Eos % (Auto) Baso % (Auto) Nucleat RBC Rel Count Absolute Neuts (auto) Absolute Lymphs (auto) Absolute Monos (auto) Absolute Eos (auto) Absolute Basos (auto) Absolute Nucleated RBC Immature Gran % Seg Neutrophils % Lymphocytes % Monocytes % Eosinophils % Immature Gran # Absolute Seg Neuts Absolute Lymphocytes Absolute Monocytes Absolute Eosinophils Atypical Lymphocytes Platelet Estimate Smear Review By VBG Lactic Acid POC Sodium Sodium 138 mEq/L mEq/L (134-144) POC Potassium Potassium 4.2 mEq/L mEq/L (3.5-5.2) POC Chloride Chloride 102 mEq/L mEq/L (97-110) Carbon Dioxide 20 mEq/l L mEq/l (22-31) Anion Gap 16 mEq/L mEq/L (8-16) POC BUN BUN 37 mg/dL H mg/dL (7-23) Creatinine 1.7 mg/dL H mg/dL (0.6-1.0) POC Creatinine Estimated GFR 28 Glucose 238 mg/dL H mg/dL (70-100) POC Glucose Calcium 10.3 mg/dL mg/dL (8.5-10.4) Troponin I 0.018 ng/mL ng/mL (0-0.034) Medications Given: Discontinued Medications Furosemide (Lasix Injection) 40 mg IVP EDNOW ONE Stop: 10/20/16 22:50 Last Admin: 10/20/16 22:56 Dose: 40 mg Point of Care Test Results: 10/20/16 22:37 POC Sodium 139 POC Potassium 3.8 POC Chloride 103 POC BUN 39 H POC Creatinine 1.8 H POC Glucose 352 H Departure - Departure Disposition: [facility] Inpatient Acute Clinical Impression: Acute exacerbation of congestive heart failure Condition: Serious Referrals: Naomi Tyler MD [Primary Care Provider] - As per Instructions
[2016-10-20 22:59] LABS: TROPONIN I 0.018 ng/mL (0-0.034)
[2016-10-20 23:02] LABS: SCAN POSITIVE
[2016-10-20 23:20] LABS: PLATELET ESTIMATE ADEQUATE (ADEQ)
[2016-10-21] MEDS ORDERED: ACETAMINOPHEN 325 MG TAB PO PRN ×2 (01:39→10:02)
[2016-10-21] MEDS ORDERED: D50W 25 GM/50 ML SYR IVP PRN (01:39)
[2016-10-21] MEDS ORDERED: ONDANSETRON 4 MG/2 ML VIAL IVP PRN (01:39)
[2016-10-21] MEDS ORDERED: ONDANSETRON DISINTEGRATING 4 MG TAB PO PRN (01:39)
--- NOTE | 2016-10-21 01:50 | CPEKG ---
Heart Rate: 71 RR Interval: 845 P-R Interval: 160 QRSD Interval: 138 QT Interval: 476 QTC Interval: 518 P Fritch: 56 QRS Fritch: -35 T Wave Fritch: 118 EKG Severity - ABNORMAL ECG - EKG Impression: SINUS RHYTHM EKG Impression: LEFT ATRIAL ABNORMALITY EKG Impression: LEFT BUNDLE BRANCH BLOCK Electronically Signed By: Vin Brand 21-Oct-2016 07:27:50
--- NOTE | 2016-10-21 03:10 | GHP ---
[f rep st] HISTORY AND PHYSICAL DATE OF ADMISSION: 10/20/2016 CHIEF COMPLAINT: Shortness of breath. HISTORY OF PRESENT ILLNESS: The patient is an 86-year-old female with a history of diastolic heart failure, chronic kidney disease and renal cell carcinoma, status post nephrectomy, who presents to the emergency department with acute onset shortness of breath. She states she has been in her usual state of health recently. She denies any fevers, chills, cough, or upper respiratory symptoms suggestive of an infectious process. She does note she had a lot of salty crackers to eat the evening of admission. Her blood pressure has been normal in the 120s. She also follows her daily weights and has not noted a change in her weight recently. She denies any lower extremity edema. She has not had problems with orthopnea or paroxysmal nocturnal dyspnea. This evening, while watching TV, she developed sudden onset shortness of breath and presented to the emergency department. She was found to be in acute heart failure. She is admitted to the hospital for further management. PAST MEDICAL HISTORY: 1. Renal cell carcinoma status post right nephrectomy in April 2016. 2. Chronic kidney disease with a baseline creatinine of 1.5. 3. Chronic diastolic heart failure. 4. Gout. 5. Hypertension. 6. Post herpetic neuralgia. MEDICATIONS: Please see [facility] for complete updated outpatient medication list. ALLERGIES: Codeine. FAMILY HISTORY: Her son of lymphoma. SOCIAL HISTORY: The patient is . She lives at the [facility] in [place] with her . She denies alcohol or tobacco use. REVIEW OF SYSTEMS: A 10-point review of systems was performed and is negative except as per HPI. OBJECTIVE: VITAL SIGNS: On arrival, temperature 36.2, blood pressure 197/118, heart rate 133, respiratory rate 36, she was 84% on 15 L. Currently, temperature is 37.5, blood pressure 133/70, heart rate 85, respiratory rate, she is 94% on 3 L of oxygen by nasal cannula. GENERAL: The patient is awake, alert, oriented, in no acute distress. HEENT: Head is atraumatic, normocephalic. Pupils equal, round, react to light. Extraocular muscles intact. Oropharynx is clear. Mucous membranes are moist. NECK: Supple. There is 8 cm of JVD. HEART: Regular rate and rhythm. LUNGS: Crackles in bilateral bases longterm up, without wheezes. ABDOMEN: Soft, nondistended, nontender. Normoactive bowel sounds. EXTREMITIES: She has 1+ bilateral lower extremity edema. NEUROLOGIC: Grossly nonfocal. LABORATORY DATA: CBC reveals a white blood cell count of 16.2 with 55% lymphocytes and 33% neutrophils, hemoglobin is normal. Lactate is elevated at 3.1. Basic metabolic panel is remarkable for CO2 of 20, BUN 37, creatinine 1.7 , blood glucose 238. Troponin is negative. Chest x-ray performed in the emergency department shows an increasing diffuse interstitial edema. This was personally reviewed and interpreted. EKG shows a wide-complex tachycardia with a left bundle branch block. This was present on prior EKGs. Repeat EKG when her heart rate has normalized now shows sinus rhythm with a heart rate of 71 and a persistent left bundle branch block which was present on prior EKGs. ASSESSMENT/PLAN: The patient is an 86-year-old female with a history of renal cell carcinoma, hypertension, chronic kidney disease, and diastolic heart failure, who is admitted with flash pulmonary edema. 1. Acute respiratory failure secondary to flash pulmonary edema. The patient has a history of diastolic heart failure, though is not taking a diuretic at home. Upon arrival, she initially required BiPAP and received 40 mg of IV Lasix. She is diuresing effectively and has since been taken off BiPAP, is currently saturating in the 90s on 3 L of oxygen. She has been chest pain free and had a negative troponin on arrival, will trend trop. She did not have a BNP ; will send one now. I will continue IV Lasix for diuresis. I reviewed her echo from a month ago. It showed an ejection fraction of 50% to 55% with mild mitral regurgitation and mild aortic regurgitation. Will repeat an echo in the morning to ensure there is no new wall motion abnormality to explain her flash pulmonary edema. Cardiology consult is requested. 2. Acute kidney injury in the setting of chronic kidney disease. Her creatinine is not far from her baseline of around 1.5. This is likely a cardiorenal problem in the setting of acute heart failure. Will continue to monitor. 3. Hyperglycemia. The patient does not have a history of diabetes, but presents with a blood sugar of 238. Will check an A1c and provide dose adjusted insulin for now. 4. Renal cell carcinoma status post nephrectomy in April 2016. I note on her CT scan from September of 2016 that there was a peritracheal node that is suspicious for metastatic process. I will ask the day team to alert Oncology of her admission and weigh in on this peritracheal node. 5. Hypertension. The patient presented quite hypertensive with a blood pressure 190s over 118. She is currently normotensive in the 130s over 70s. Will resume her metoprolol in the morning when her medication reconciliation has been completed. 6. Leukocytosis. Suspect this was a stress response in the setting of flash pulmonary edema. She is afebrile, there is no neutrophilia. Will recheck this in the morning. 7. Lactic acidosis. I do not think she has an infectious process. She does not appear septic, and she may have an elevated lactate in the setting of decreased perfusion related to acute heart failure. Will repeat a lactic acid now and continue to monitor her for any signs of infection. 8. Code status. I discussed code status with the patient. She wishes to be DNR. 9. Deep vein thrombosis prophylaxis. Patient is moderate to high risk. Will start subcutaneous heparin. 10. Disposition. Patient is admitted to inpatient status. She will likely require greater than 48 hours' hospitalization for ongoing management of her acute heart failure. /[id number]/MODL MTDD
[2016-10-21 04:36] LABS: % IMMATURE GRANULYOCYTES 0.3 % (0.0-1.1); ABSOLUTE IMMATURE GRANULOCYTES 0.03 10^3/uL (0.00-0.10); ADD DIFF? NO; ADD MORPH? NO; ADD SCAN? NO; ATYPICAL LYMPHOCYTE FLAG 0 (0-99); FRAGMENT RBC FLAG 0 (0-99); HEMATOCRIT 34.3 % (38.0-47.0); HEMOGLOBIN 11.3 g/dL (12.6-16.3); LEFT SHIFT FLG 0 (0-99); LIPEMIA HEMOLYSIS FLAG 80 (0-99); MEAN CELL HEMOGLOBIN 30.8 pg (27.9-34.1); MEAN CELL HEMOGLOBIN CONCENTR. 32.9 g/dL (32.4-36.7); MEAN CELL VOLUME 93.5 fL (81.5-99.8); MEAN PLATELET VOLUME 10.9 fL (8.7-11.7); PLATELET CLUMPS FLAG 30 (0-99); PLATELET COUNT 153 10^3/uL (150-400); RED BLOOD CELL COUNT 3.67 10^6/uL (4.18-5.33); RED CELL DISTRIBUTION WIDTH 15.4 % (11.5-15.2)
[2016-10-21 04:44] LABS: ANION GAP 12 mEq/L (8-16); CALCIUM 9.7 mg/dL (8.5-10.4); CARBON DIOXIDE 20 mEq/l (22-31); CHLORIDE 106 mEq/L (97-110); CREATININE 1.6 mg/dL (0.6-1.0); GLOMERULAR FILTRATION RATE 31; GLUCOSE 96 mg/dL (70-100); POTASSIUM 5.1 mEq/L (3.5-5.2); SODIUM 138 mEq/L (134-144)
[2016-10-21 04:54] LABS: TROPONIN I 0.206 ng/mL (0-0.034)
[2016-10-21] MEDS: HEPARIN 5,000 UNIT/0.5 ML SYR SC SCH ×3 (06:31→21:47)
[2016-10-21] MEDS: INSULIN LISPRO 100 UNIT/ML SC SCH ×3 (08:13→18:28)
[2016-10-21] MEDS: FUROSEMIDE 20 MG/2 ML VIAL IVP SCH ×2 (08:36→15:55)
--- NOTE | 2016-10-21 09:22 | ECHO ---
[id number] + + [phone] : : [place] [address] : : [phone] + Adult Echocardiographic Report + ------+ :Name: USAMA LAMAR MStudy Date: 10/21/2016 07:55 AM BP: 119/53 mmHg : : Hospital Admission Number: [id number] Franciscoatio n: 246: :: 1930 Gender: Female Height: 64 in : :Age: 86 yrs Race: WH Weight: 151 lb : :Reason For Study: flash pulmonary edema : : BSA: 1.7 meters 2 : :History: flash pulmonary edema : + ------+ MMode/2D Measurements \T\ Calculations IVSd: 1.1 cm LVIDd: 2.9 cm FS: 32.5 % Ao root diam: 3.2 cm LVPWd: 0.99 cm LVIDs: 2.0 cm EDV(Teich): 32.1 ml ESV(Teich): 12.0 ml EF(Teich): 62.6 % Normal Measurement Values: + + :LVIDd (3.5-5.7cm) IVSd (0.6-1.1cm) LVPWd (0.6-1.1cm) Aortic Root (2.0-3.7cm)Left Atrium (1.5-4.0cm): :LV Vol(d) (76-115ml) LV Vol(s) (29-48ml) Ejec Fraction (50-65%)PV Baldo (0.6- 1.2m/s) TV Baldo (0.4-1.0m/s) : :MV E Baldo (0.8-1.0m/s)MV A Baldo (0.3-1.0m/s)LVOT Baldo (0.7-1.2m/s) Asc Ao Baldo ( 0.9-1.8m/s) : + + Doppler Measurements \T\ Calculations MV E max baldo: MV V2 max: Ao V2 max: LV V1 max: 58.3 cm/sec 198.2 cm/sec 121.5 cm/sec 103.1 cm/sec MV A max baldo: MV max PG: Ao max PG: LV V1 max P.0 cm/sec 15.7 mmHg 5.9 mmHg 4.2 mmHg MV E/A: 0.40 MV V2 mean: 90.9 cm/sec MV mean P.5 mmHg MV V2 VTI: 37.5 cm PA V2 max: TR max baldo: 119.4 cm/sec 248.7 cm/sec PA max P.7 mmHg TR max P.7 mmHg RAP systole: 5.0 mmHg RVSP(TR): 29.7 mmHg Left Ventricle The left ventricle is normal in size and function. There is mild concentric left ventricular hypertrophy. Ejection Fraction = 55-60%. There is Doppler evidence for diastolic dysfunction. Septal motion is consistent with conduction abnormality. Right Ventricle The right ventricle is normal in size and function. Atria Left atrial enlargement. Right atrial size is normal. Mitral Valve Heavily calcified mitral leaflets with mildly restricted mobility. There is mild mitral stenosis. Eccentric mitral regurgitation; the severity is difficult to determine due to shadowing from the calcification and poor acoustical window. JADA may better visualize the severity of the MR. Tricuspid Valve The tricuspid valve is normal in structure and function. There is no tricuspid stenosis. There is mild tricuspid regurgitation. Aortic Valve The aortic valve is trileaflet. Mild Aortic Valve Calcification. There is no aortic stenosis. Mild aortic regurgitation. Pulmonic Valve The pulmonic valve is normal in structure and function. Mild pulmonic valvular regurgitation. Great Vessels The aortic root is normal size. Pericardium/Pleural There is no pericardial effusion. There is a moderate pleural effusion. Conclusion A two-dimensional transthoracic echocardiogram with M-mode and Doppler was performed. Very technically limited echocardiogram due to poor acoustical window. JADA may better visualize the severity of the mitral regurgitation. The left ventricle is normal in size and function. There is mild concentric left ventricular hypertrophy. Ejection Fraction = 55-60%. There is Doppler evidence for diastolic dysfunction. Septal motion is consistent with conduction abnormality. Left atrial enlargement. Heavily calcified mitral leaflets with mildly restricted mobility. There is mild mitral stenosis. Eccentric mitral regurgitation; the severity is difficult to determine due to shadowing from the calcification and poor acoustical window. There is mild tricuspid regurgitation. Mild aortic regurgitation. Mild pulmonic valvular regurgitation. There is a moderate pleural effusion. Final Reading Physician: Moises Jenkins signed on 10/21/2016 09:22 AM Ordering Physician: Zamzam Gonzales Performed By: Mary Sanchez
--- NOTE | 2016-10-21 09:50 | HOSPPROG ---
Hospitalist Progress Note Assessment/Plan: DIAGNOSES: -chest pain described as a right-sided chest pressure, new symptoms this morning , rule out acute coronary syndrome -acute flash pulmonary edema with acute hypoxemic respiratory failure -elevated cardiac troponin which could be an indication of acute ischemic event versus LV strain from her severe heart failure -acute congestive heart failure, history of diastolic dysfunction but question of whether systolic changes may be occurring -regular tachycardia at 146/m at the time of presentation, unable to determine if this was sinus or atrial flutter -severe hypertension, suspect this is secondary to her acute pulmonary edema and respiratory failure, as her blood pressures been good at home but cannot entirely rule out hypertensive emergency -chronic left bundle branch block still present on today's EKG -acute lactic acidosis due to heart failure and hypoxemic respiratory failure -history of hypertension well controlled home on medications -history of renal cell carcinoma PLANS: I reviewed the patient's case in detail this morning with Dr. Axel Wray Stat 12 lead EKG now Continue repeat troponin levels After review of current EKG will consider treatment with nitrates or beta mariana She will be going to coronary angiography later today to rule out ischemia as a cause of her symptoms Continue diuresis and blood pressure control SUBJECTIVE: Feels much better with near complete resolution of dyspnea However is having some right-sided chest pressure at this moment OBJECTIVE Vitals reviewed: Blood pressure is much better now after diuresis and resolution of respiratory failure Data Analytics Chief Scientist, my review: Sinus rhythm Exam: alert oriented skin warm dry color ok resps not labored lungs clear BSs heart regular abd soft nondistended nontender, bowel sounds present limbs warm, no edema iv site ok Laboratory data: Lactic acidosis is resolved Troponin has increased to 0.2 BNP 7000 Creatinine slightly better at 1.6 although BUN is increased a bit 42 White blood cell count is better but still elevated at 11,000 thousand Objective: Vital Signs Temp Pulse Resp BP Pulse Ox 37.5 C 76 18 115/56 L 96 10/20/16 23:27 10/21/16 04:00 10/21/16 04:00 10/21/16 04:00 10/21/16 04:00 Laboratory Results 10/21/16 04:30 10/21/16 04:35 10/20/16 10/21/16 10/22/16 06:59 06:59 06:59 Intake Total 300 Output Total 1670 Balance -1370 ICD10 Worksheet Patient Problems: Problems Problem Status Onset Acute exacerbation of congestive heart failure Acute Chronic Disease Mgmt/Transitional Care Acute Dehydration Acute Elevated troponin I level Acute Hematuria Acute Hydronephrosis Acute Hypoxia Acute Ileus Acute Renal mass, right Acute Worsening renal function Acute
[2016-10-21] MEDS ORDERED: DIAZEPAM 5 MG TAB PO ONE (10:02)
[2016-10-21] MEDS ORDERED: diphenhydrAMINE 25 MG CAP PO ONE ×2 (10:02→12:35)
[2016-10-21] MEDS ORDERED: ASPIRIN EC 325 MG TAB PO ONE ×2 (10:02→12:35)
[2016-10-21] MEDS ORDERED: NITROGLYCERIN 0.4 MG BTL SL PRN (10:02)
[2016-10-21] MEDS ORDERED: TEMAZEPAM 15 MG CAP PO PRN (10:02)
--- NOTE | 2016-10-21 10:28 | PDCARPN ---
Cardiology Progress Note Chief Complaint: Acute onset of dyspnea Assessment/Plan: Assessment: Patient is an 86 y/o female with history of metastatic renal cell carcinoma s/p right nephrectomy, HTN, and HLP, with history of diastolic heart failure admission in September 2016, who presents back to [facility] after another similar event. According to the patient, last night's events was more severe than that in September. Acute onset of dyspnea was noted, and supplemental oxygen therapy did not help. No associated chest pains or pressure, no PND or orthopnea were noted. Patient had just eaten dinner, and noted shortness of breath without activity. During the prior hospitalization in September, the patient had echocardiogram (normal left ventricular systolic function, but diastolic dysfunction was noted at that time), and myocardial perfusion imaging with an anteroseptal perfusion abnormality noted. There were discussions at that time about pursuit of angiography, but given renal history (cancer and insufficiency) , the decision to forego invasive testing. I did speak with nephrology (Dr. Gildardo Patricio) this morning about this patient and probable need to have more invasive work up for assessment of the flash pulmonary edema that has now been noted twice. The patient was agreeable to this testing as well. Risks and benefits of invasive testing were discussed with the patient. Twelve point review of systems was unremarkable outside of that which was mentioned above. Plan: (1) Would arrange for patient to have left heart catheterization (sans left ventriculogram) for assessment of coronary arteries. (2) Would continue medical therapy with metoprolol for HTN history (3) Statins should continue with history of HLP (4) ASA therapy should continue given the CV risks noted (5) Would also consider an arrhythmia monitor to ensure that arrhythmias ( specifically atrial fibrillation/flutter) are not transiently noted (and the causation of the flash pulmonary edema that has been noted in the setting of diastolic heart failure). Subjective: No cardiovascular complaints were voiced this morning Reviewed/Discussed With: hospitalist, multidisciplinary team Objective: Vital Signs (8 Hrs) Pulse Resp BP Pulse Ox 10/21/16 04:00 76 18 115/56 L 96 Intake/Output (24 Hrs) 10/20/16 10/21/16 10/22/16 05:59 05:59 05:59 Intake Total 300 Output Total 1670 240 Balance -1370 -240 Intake: Oral (ml) 300 Output: Urine (ml) 1670 240 Catheter 1620 240 Other: Weight 68.5 kg 68 kg Number of Voids Catheter 1 Result Diagrams: 10/21/16 04:30 10/21/16 04:35 Cardiac Labs: Cardiac Lab Results (72 Hrs) 10/21/16 04:35 Troponin I 0.206 H EKG: sinus rhythm with LBBB pattern - initial ECG with tachycardia noted, and subsequent ECGs with slower rates appreciated Telemetry: normal sinus rhythm, LBBB pattern noted Echocardiogram: normal LVEF, diastolic dysfunction was appreciated. Moderate mitral annular calcification was noted (mild mitral stenosis). There was a moderate pleural effusion noted. - Physical Exam Constitutional: WDWN, healthy appearing, no apparent distress, obese Eyes: PERRL, EOMI Ears, Nose, Mouth, Throat: moist mucous membranes Cardiovascular: regular rate and rhythm, systolic murmur Peripheral Pulses: 2+: dorsalis-pedis (R), dorsalis-pedis (L) Respiratory: clear to auscultate bilat, no crackles, no wheezes Gastrointestinal: normoactive bowel sounds Skin: no rashes, no edema Musculoskeletal: no muscular tenderness Neurologic: AAOx3, CN II-XII grossly intact Psychiatric: cooperative, interactive, following commands ICD10 Worksheet Patient Problems: Problems Problem Status Onset Acute exacerbation of congestive heart failure Acute Chronic Disease Mgmt/Transitional Care Acute Dehydration Acute Elevated troponin I level Acute Hematuria Acute Hydronephrosis Acute Hypoxia Acute Ileus Acute Renal mass, right Acute Worsening renal function Acute
--- NOTE | 2016-10-21 10:28 | CPEKG ---
Heart Rate: 70 RR Interval: 857 P-R Interval: 136 QRSD Interval: 140 QT Interval: 488 QTC Interval: 527 P [place]: 56 QRS [place]: -44 T Wave [place]: 114 EKG Severity - ABNORMAL ECG - EKG Impression: SINUS RHYTHM EKG Impression: LEFT ATRIAL ENLARGEMENT EKG Impression: LEFT BUNDLE BRANCH BLOCK Electronically Signed By: Vin Brand 24-Oct-2016 05:38:08
[2016-10-21 10:38] LABS: INR 1.13 (0.83-1.16); PROTIME(PATIENT) 14.4 SEC (12.0-15.0)
[2016-10-21] MEDS ORDERED: MIDAZOLAM 2 MG/2 ML VIAL ONE (11:17)
[2016-10-21] MEDS ORDERED: fentaNYL 100 MCG/2 ML INJ ONE (11:17)
[2016-10-21] MEDS ORDERED: LIDOCAINE 1% 300 MG/30 ML SDV ONE (11:17)
[2016-10-21] MEDS ORDERED: IOPAMIDOL (ISOVUE-370) 150 ML BTL IV ONE ×2 (11:18→13:53)
[2016-10-21] MEDS ORDERED: DIAZEPAM 5 MG TAB ONE (12:35)
[2016-10-21] MEDS ORDERED: BIVALIRUDIN 250 MG/5 ML VIAL IV ONE (13:40)
[2016-10-21] MEDS ORDERED: NITROGLYCERIN 1,500 MCG/15 ML VIAL MISC ONE (13:40)
--- NOTE | 2016-10-21 14:10 | PDDXCAT ---
Diagnostic Cath Note - . Date: 10/21/16 Ballet Soloist: Kamala Indication: other (flash pulmonary edema) High-risk criteria on non-invasive testing: stress-induced moderate-size multiple perfusion defects - Procedure Access: right groin Procedure: left heart catheterization, coronary angiography - Materials Left Heart Cath materials: JL4.0, JR4.0 - Findings-Left Heart Catheterization LM: Medium diameter vessel. No appreciable luminal irregularities were noted. Bifurcation into the LAD and LCX vessels LAD: Medium diameter vessel. Just proximal to principal diagonal, there is a "shelf" with critical lesion (>80%). In the mid LAD, there was a 90% stenosis noted. The principal diagonal has a branch. Minor luminal irregularities are noted. LCX: Medium diameter vessel with several obtuse marginals (equal in magnitude to take off from LCX). No more than 10% luminal irregularities were noted. RCA: Dominant vessel with supply to the PDA. Luminal irregularities to the proximal and mid RCA of 50%. EDP: not assessed LVEF: not assessed (to limit contrast injection) Wall motion: not assessed Complications: none Estimated blood loss: <50ml Assessment: Patient is an 86 y/o female with metastatic renal cell carcinoma, HTN, HLP, and a second admission in about six weeks for flash pulmonary edema. Angiography today with two lesions to the proximal and mid LAD. Plan: Dr. Otto Rivas to assess lesions and location for PCI potential. Intervention: LAD lesions are being assessed. Patient Problems: Problems Problem Status Onset Acute exacerbation of congestive heart failure Acute Chronic Disease Mgmt/Transitional Care Acute Dehydration Acute Elevated troponin I level Acute Hematuria Acute Hydronephrosis Acute Hypoxia Acute Ileus Acute Renal mass, right Acute Worsening renal function Acute
[2016-10-21] MEDS ORDERED: CLOPIDOGREL BISULFATE 75 MG TAB ONE (14:15)
[2016-10-21] MEDS ORDERED: ATROPINE SULFATE 1 MG/10 ML SYR IVP PRN (14:19)
[2016-10-21] MEDS ORDERED: CLOPIDOGREL BISULFATE 75 MG TAB PO ONE (14:19)
--- NOTE | 2016-10-21 14:24 | PDCTREPORT ---
Cardiothoracic Procedure Rpt Cardiothoracic Procedure Report: Procedure: PCI and stenting of the proximal and mid LAD. Indications: Flash pulmonary edema. I am asked by my partner Dr. Axel Wray to perform PCI and stenting of the LAD in the setting of flash pulmonary edema. Diagnostic angiograms were reviewed. Patient is anticoagulated with Angiomax. Dose was adjusted for reduced creatinine clearance. Using a 6 [place] EBU 3.75 guiding catheter left main coronary selectively intubated. Using a 0.014 luge wire the LAD stenosis was crossed and the wire placed in the distal vessel. The distal stenosis was pre-dilated with a 2 mm balloon. The proximal stenosis was pre-dilated with a 2 mm balloon. His like to proceed with stenting at 2.5 x 24 mm synergy stent was placed across the distal stenosis and deployed in a single inflation. A 4.0 x 20 mm synergy stent was placed across the proximal lesion and deployed using a single inflation. Repeat angiograms revealed shift of plaque into the large principal diagonal. A 0.014 harbor boat pilot 50 wire was used to enter the diagonal. A 2 mm balloon was used to reestablish antegrade flow within the diagonal. It was elected proceed with kissing. A 3.0 x 16 mm balloon was placed on the LAD wire. A 2.5 x 16 mm balloon was placed in the diagonal. Simultaneous kissing inflation was performed. Repeat angiogram showed COLEMAN grade 3 flow in both limbs. Proximal LAD stent was then post dilated with a 4.5 mm non compliant balloon. Repeat angiogram showed COLEMAN grade 3 flow. Final diagnosis successful PCI and stenting of the LAD diagonal. Patient Problems: Problems Problem Status Onset Chronic Disease Mgmt/Transitional Care Acute Hydronephrosis Acute Renal mass, right Acute Hematuria Acute Dehydration Acute Worsening renal function Acute Ileus Acute Acute exacerbation of congestive heart failure Acute Elevated troponin I level Acute Hypoxia Acute
[2016-10-21] MEDS ORDERED: NS 1,000 ML IV SCH (14:30)
--- NOTE | 2016-10-21 15:09 | CPEKG ---
Heart Rate: 83 RR Interval: 723 P-R Interval: 172 QRSD Interval: 142 QT Interval: 468 QTC Interval: 550 P [place]: 69 QRS [place]: -34 T Wave [place]: 111 EKG Severity - ABNORMAL ECG - EKG Impression: SINUS RHYTHM EKG Impression: ELADIO, CONSIDER BIATRIAL ABNORMALITIES EKG Impression: LEFT BUNDLE BRANCH BLOCK Electronically Signed By: Vin Brand 24-Oct-2016 05:37:40
[2016-10-22 05:26] LABS: % IMMATURE GRANULYOCYTES 0.3 % (0.0-1.1); ABSOLUTE IMMATURE GRANULOCYTES 0.02 10^3/uL (0.00-0.10); ADD DIFF? NO; ADD MORPH? NO; ADD SCAN? NO; ATYPICAL LYMPHOCYTE FLAG 0 (0-99); FRAGMENT RBC FLAG 0 (0-99); HEMATOCRIT 33.8 % (38.0-47.0); HEMOGLOBIN 11.4 g/dL (12.6-16.3); LEFT SHIFT FLG 0 (0-99); LIPEMIA HEMOLYSIS FLAG 80 (0-99); MEAN CELL HEMOGLOBIN 30.7 pg (27.9-34.1); MEAN CELL HEMOGLOBIN CONCENTR. 33.7 g/dL (32.4-36.7); MEAN CELL VOLUME 91.1 fL (81.5-99.8); MEAN PLATELET VOLUME 10.6 fL (8.7-11.7); PLATELET CLUMPS FLAG 10 (0-99); PLATELET COUNT 149 10^3/uL (150-400); RED BLOOD CELL COUNT 3.71 10^6/uL (4.18-5.33); RED CELL DISTRIBUTION WIDTH 15.6 % (11.5-15.2)
[2016-10-22 05:42] LABS: ALBUMIN 3.2 g/dL (3.5-5.0); ANION GAP 10 mEq/L (8-16); ASPARTATE AMINOTRANSFERASE 42 IU/L (14-46); BILIRUBIN,TOTAL 1.1 mg/dL (0.1-1.4); CALCIUM 9.7 mg/dL (8.5-10.4); CARBON DIOXIDE 22 mEq/l (22-31); CHLORIDE 106 mEq/L (97-110); CREATININE 1.6 mg/dL (0.6-1.0); GLOMERULAR FILTRATION RATE 31; GLUCOSE 85 mg/dL (70-100); LACTATE DEHYDROGENASE 491 IU/L (313-618); MAGNESIUM 1.9 mg/dL (1.6-2.3); POTASSIUM 3.5 mEq/L (3.5-5.2); SODIUM 138 mEq/L (134-144)
[2016-10-22] MEDS: HEPARIN 5,000 UNIT/0.5 ML SYR SC SCH (06:05)
[2016-10-22] MEDS: INSULIN LISPRO 100 UNIT/ML SC SCH (07:35)
[2016-10-22 07:39] VITALS: RESP 20; TEMP 97.4
[2016-10-22] MEDS ORDERED: CLOPIDOGREL BISULFATE 75 MG TAB PO SCH (09:00)
[2016-10-22] MEDS ORDERED: ASPIRIN EC 325 MG TAB PO SCH (09:00)
[2016-10-22] MEDS ORDERED: FLUOCINONIDE 0.05% 15 GM CREAM TP PRN (10:13)
[2016-10-22] MEDS ORDERED: PRAVASTATIN SODIUM 40 MG TAB PO SCH (10:15)
[2016-10-22] MEDS ORDERED: METOPROLOL TARTRATE 25 MG TAB PO SCH ×2 (10:15→10:30)
[2016-10-22] MEDS ORDERED: TORSEMIDE 10 MG TAB PO SCH (10:15)
[2016-10-22] MEDS ORDERED: ALLOPURINOL 300 MG TAB PO SCH (10:15)
--- NOTE | 2016-10-22 10:53 | CPEKG ---
Heart Rate: 83 RR Interval: 723 P-R Interval: 156 QRSD Interval: 140 QT Interval: 456 QTC Interval: 536 P [place]: 61 QRS [place]: -26 T Wave [place]: 123 EKG Severity - ABNORMAL ECG - EKG Impression: SINUS RHYTHM EKG Impression: LEFT ATRIAL ENLARGEMENT EKG Impression: LEFT BUNDLE BRANCH BLOCK Electronically Signed By: Vin Brand 24-Oct-2016 05:37:34
--- NOTE | 2016-10-22 11:04 | PDINTPN ---
Pharmacy Account Director Progress Note Assessment/Plan: Assessment: Pulmonary edema: Resolved. Likely due to transient ischemia. CAD: s/p stent. No signs recurrent ischemia CRI: Cr at baseline. Good urine output. Tachycardia: Sinus. Of b-mariana. Plan: Resume b-mariana. Can discharge home today if OK with cardiology. 10/22/16 10:57 Subjective: Feels OK, no dyspnea, CP. Walked with PT without difficulty. Objective: Vital Signs Temp Pulse Resp BP Pulse Ox 36.3 C 81 20 127/55 H 94 10/22/16 07:37 10/22/16 07:37 10/22/16 07:37 10/22/16 07:37 10/22/16 07:37 Laboratory Results 10/22/16 05:12 10/22/16 05:12 10/21/16 10/22/16 10/23/16 05:59 05:59 05:59 Intake Total 300 501 Output Total 1670 3025 Balance -1370 -2524 PT 14.4 SEC (12.0-15.0) 10/21/16 10:25 INR 1.13 (0.83-1.16) 10/21/16 10:25 Physical Exam - Physical Exam General Appearance: alert, no apparent distress EENT: normal ENT inspection Neck: normal inspection Respiratory: lungs clear, normal breath sounds Cardiac/Chest: regular rate, rhythm, edema Abdomen: normal bowel sounds, non-tender, soft Skin: normal color, warm/dry Extremities: non-tender Neuro/Psych: alert, normal mood/affect, oriented x 3 ICD10 Worksheet Patient Problems: Problems Problem Status Onset Acute exacerbation of congestive heart failure Acute Chronic Disease Mgmt/Transitional Care Acute Dehydration Acute Elevated troponin I level Acute Hematuria Acute Hydronephrosis Acute Hypoxia Acute Ileus Acute Renal mass, right Acute Worsening renal function Acute
[2016-10-22] MEDS: FUROSEMIDE 20 MG/2 ML VIAL IVP SCH (11:21)
--- NOTE | 2016-10-22 11:22 | PDCARPN ---
Cardiology Progress Note Chief Complaint: SOB Assessment/Plan: Assessment/plan: Marika is a 86 y/o F who was admitted with flash pulmonary edema. She was taken to the supervisor cytogenetic laboratory the following day and found to have obstructive distal and proximal LAD disease. She is s/p PCI of the distal lesion and proximal lesions with synergy MYKE. Stenting of the proximal lesion caused a shift in plaque into a large principal diag which was then ballooned. She denies any CP or SOB. Her R groin is without hematoma. She is stable and ready for d/c home. She will remain in Aspirin, Plavix, Metoprolol, and statin therapy. Follow up with Dr. Barnes as scheduled in 2 weeks. 10/22/16 11:18 Subjective: Pt denies any CP, SOB or groin pain. Reviewed/Discussed With: hospitalist Objective: Vital Signs (8 Hrs) Temp Pulse Resp BP Pulse Ox 10/22/16 07:37 36.3 C 81 20 127/55 H 94 10/22/16 04:00 36.4 C 91 18 125/59 H 10 L Intake/Output (24 Hrs) 10/21/16 10/22/16 10/23/16 05:59 05:59 05:59 Intake Total 300 501 Output Total 1670 3025 Balance -1370 -2524 Intake: Oral (ml) 300 300 IV Intake (ml) 201 Output: Urine (ml) 1670 3025 Bedpan 2200 Catheter 1620 240 Toilet 585 Other: Weight 68.5 kg 68 kg Number of Voids Bedpan 1 Catheter 1 Toilet 1 Result Diagrams: 10/22/16 05:12 10/22/16 05:12 Cardiac Labs: Cardiac Lab Results (72 Hrs) 10/21/16 04:35 Troponin I 0.206 H EKG: NSR with LBBB Telemetry: NSR - Physical Exam Constitutional: WDWN Cardiovascular: regular rate and rhythm Peripheral Pulses: 2+: femoral (R), dorsalis-pedis (R) (clean intacked without infection), dorsalis-pedis (L) Respiratory: clear to auscultate bilat, no crackles, no wheezes Skin: no edema Neurologic: AAOx3 ICD10 Worksheet Patient Problems: Problems Problem Status Onset Acute exacerbation of congestive heart failure Acute Chronic Disease Mgmt/Transitional Care Acute Dehydration Acute Elevated troponin I level Acute Hematuria Acute Hydronephrosis Acute Hypoxia Acute Ileus Acute Renal mass, right Acute Worsening renal function Acute
--- NOTE | 2016-10-22 11:43 | PDDCSUM ---
Discharge Summary Discharge Summary: DISCHARGE DIAGNOSES: -Acute coronary syndrome -Coronary artery disease status post stenting during this hospital stay -Acute congestive heart failure, systolic, with flash pulmonary edema -Acute hypoxemic respiratory failure -Chronic hypertension -Chronic hyperlipidemia on statin therapy CONSULTANTS: Jemal Acharya, Storm Rivas, Axel Wray PROCEDURES: echocardiogram Coronary angiography Placement of 2 drug-eluting stents in the left anterior descending coronary artery HOSPITAL COURSE SUMMARY: This patient presented to the hospital with acute shortness of breath on the day of admission. She was found have severe pulmonary edema hypoxemia with some respiratory distress. She is also found have a mildly elevated troponin. She had previous had a had an evaluation for an acute cardiac episode and had been recommended for angiography which had not yet been done. At this time she was treated with a diuresis which did improve her breathing and oxygenation. She went to angiography which showed severe coronary stenoses of the proximal and distal left anterior descending artery. She had stents placed in each of these segments with good COLEMAN grade 3 blood flow and no complications. Plavix is added to her medication list. At this time she is feeling fine with no angina, dyspnea, arrhythmia. She is up and ambulating. there there are no symptoms of complication related to her access site. She is stable for discharge to home PENDING TEST RESULTS: None MEDICATION CHANGES: addition of Plavix 75 mg daily Increase aspirin to 325 mg daily Increase metoprolol to 25 mg twice daily FOLLOW-UP PLAN: With Dr. Axel Barnes next week Greater than 35 minutes bedside and care coordination time today
--- NOTE | 2016-10-22 11:54 | GCON ---
[f rep st] CONSULTATION PULMONARY/CRITICAL CARE CONSULTATION DATE OF CONSULTATION: 10/21/2016 REFERRING PHYSICIAN: Zamzam Gonzales MD REASON FOR REFERRAL: Evaluation and management of dyspnea and hypoxemia. HISTORY OF PRESENT ILLNESS: The patient is an 86-year-old woman with a history of diastolic heart f ailure, chronic kidney disease, and renal cell carcinoma status post nephrectomy who was admitted ye sterday with acute onset of shortness of breath. She had not been sick before this. She had a rapi d onset of shortness of breath while watching TV. She presented to the emergency department, where she was found to have interstitial edema and rales consistent with pulmonary edema. She also had a wide-complex tachycardia at the time of admission which improved shortly thereafter. She was treate d with Lasix and has clinically improved. She denies chest pain. PAST MEDICAL HISTORY: 1. Renal cell carcinoma status post right nephrectomy April 2016. 2. Chronic kidney disease. Baseline creatinine of 1.5. 3. Diastolic heart failure. 4. Hypertension. MEDICATIONS: At the time of admission include aspirin, pravastatin, allopurinol, metoprolol 12.5 b. i.d., torsemide. ALLERGIES: Codeine and morphine. SOCIAL HISTORY: The patient is and lives at an assisted living facility. The patient does not drink or smoke. FAMILY HISTORY: Unremarkable. REVIEW OF SYSTEMS: A 10-point review of systems adds nothing to the history of present illness. PHYSICAL EXAMINATION: GENERAL: The patient is awake, alert, and in no acute distress. VITALS: He r blood pressure is 122/55, with a heart rate of 79. She is afebrile. Oxygen saturations are 98% o n room air at rest. HEENT: Normocephalic and atraumatic. No icterus. NECK: No JVD. Trachea is midline. CHEST: Clear to auscultation. CARDIAC: Regular rate and rhythm without murmur. ABDOMEN : Soft, nontender. Bowel sounds are present. EXTREMITIES: No clubbing, cyanosis, or edema. NEUR O: The patient is awake and alert. Cranial nerves are grossly intact. She has no gross motor or s ensory deficits. LABORATORY DATA: White blood count is 11.2 with a hemoglobin of 11.3, down from 13.4. Platelet cou nt is 153. A chemistry group shows a carbon dioxide level of 20 with a BUN of 42 and a creatinine o f 1.6. Potassium is 5.1. Troponin is 0.2. Lactate is 0.8, down from 3.1 at admission. IMAGING: A chest x-ray shows interstitial and alveolar infiltrates consistent with edema, increased compared to September 2016. Images reviewed. ASSESSMENT: 1. Acute dyspnea and hypoxemia. The patient had oxygen saturations in the mid 80s on high-flow oxy gen. These have subsequently improved with Lasix. Her symptoms have also improved. These are like ly due to transient ischemia or possibly rate related heart failure due to diastolic congestive hear t failure with transient tachycardia, since resolved. Because of the concern for unstable angina ca using either her tachycardia or directly causing worsening diastolic dysfunction, coronary angiograp hy is warranted. 2. Chronic renal insufficiency. The patient's creatinine is at baseline. She has received some La six. She is at risk for worsening renal function as a result of decreased perfusion and/or contrast nephropathy from cardiac catheterization, although the dye load will likely be a fairly small from a catheterization. 3. Hypertension. The patient had hypertension at the time of admission with a blood pressure of 19 7/118, but this has subsequently improved with diuresis. RECOMMENDATIONS: 1. Continue monitoring, and try to avoid/respond to tachycardia. 2. Gently hydrate in preparation for cardiac catheterization. 3. Cardiac catheterization by Dr. Wray today. 4. Follow chest x-ray and creatinine. /[id number]/MODL
[2016-10-22 12:04] VITALS: BP 139/89; PULSE 96
[2016-10-22 13:49] VITALS: O2SAT 96
[2016-10-22] MEDS ORDERED: ASPIRIN EC 81 MG TAB PO SCH (21:00)
[2016-10-24 00:22] LABS: HEMOGLOBIN A1C 5.3 % (4.0-6.0)
== END 2016-10-22 11:55 | disposition home or self-care (01) | DRG 246 ==
LOC: EDUNIT# → F2N 10-21 00:15
PROVIDERS: ADMIT Hospitalist; ATTEND Hospitalist
DX: I25.10 Atherosclerotic heart disease of native coronary artery without angina pectoris (principal); I50.21 Acute systolic (congestive) heart failure; J96.01 Acute respiratory failure with hypoxia; I13.0 Hypertensive heart and chronic kidney disease with heart failure and stage 1 through stage 4 chronic kidney disease, or unspecified chronic kidney disease; I50.32 Chronic diastolic (congestive) heart failure; E78.5 Hyperlipidemia, unspecified; N18.9 Chronic kidney disease, unspecified; I44.7 Left bundle-branch block, unspecified; Z85.528 Personal history of other malignant neoplasm of kidney; Z90.5 Acquired absence of kidney; Z66 Do not resuscitate
CPT/HCPCS: 82947-QW; 96374; 97116-GP; 97161-GP; 97165-GO; C1725; C1760; C1769; C1874; C1887; C9600; G8978-GP-CI; G8979-GP-CI; G8980-GP-CI; G8987-GO-CI; G8988-GO-CI; J0583; J1644; J1940; J2250; J3010; Q9967

== ENCOUNTER 2017-02-20 13:42 | Emergency (ER) | payer OTHER, MEDICARE ==
[2017-02-20 13:53] VITALS: RESP 18; TEMP 97.9
--- NOTE | 2017-02-20 14:00 | EDPHY ---
H & P Stated Complaint: Oozing clear fluid from LLE Time Seen by Provider: 02/20/17 13:59 HPI/ROS: CHIEF COMPLAINT: Weeping edema bilateral lower extremities HISTORY OF PRESENT ILLNESS: The patient presents to the ED with several days of weeping edema to her bilateral lower extremities. The patient has a history of recently starting prednisone for dermatitis. She is notice some edema following the initiation of that medication. She is currently on 10 mg of torosimide 3 times a week. The patient denies any chest pain or shortness of breath. The patient denies fever, cough or congestion. She denies acute numbness or weakness. REVIEW OF SYSTEMS: A comprehensive 10 point review of systems is otherwise negative aside from elements mentioned in the history of present illness. Source: Patient Exam Limitations: No limitations - Personal History Current Tetanus Diphtheria and Acellular Pertussis (TDAP): Yes - Medical/Surgical History Hx Asthma: No Hx Chronic Respiratory Disease: No Hx Diabetes: No Hx Cardiac Disease: Yes Hx Renal Disease: Yes Hx Cirrhosis: No Hx Alcoholism: No Hx HIV/AIDS: No Hx Splenectomy or Spleen Trauma: No Other PMH: appendectomy, 1 ovary removed, hysterectomy, cholecystectomy, shingles/ Htn. nephrectomy 04/29 ca, HTN. cardiac stents - Social History Smoking Status: Never smoked - Physical Exam Exam: General Appearance: Alert, no distress Eyes: Pupils equal and round no pallor or injection ENT, Mouth: Mucous membranes moist Respiratory: There are no retractions, lungs are clear to auscultation Cardiovascular: Regular rate and rhythm Gastrointestinal: Abdomen is soft and nontender, no masses, bowel sounds normal Neurological: A&O, normal motor function, normal sensory exam, normal cranial nerves Skin: Weeping edema, no erythema Musculoskeletal: Neck is supple nontender Extremities: 2+ bilateral pedal edema Constitutional: Initial Vital Signs Temperature (C) 36.6 C 02/20/17 13:51 Heart Rate 96 02/20/17 13:51 Respiratory Rate 18 02/20/17 13:51 Blood Pressure 170/90 H 02/20/17 13:51 O2 Sat (%) 95 02/20/17 13:51 O2 Delivery Mode Room Air Allergies/Adverse Reactions: codeine Allergy (Mild, Verified 02/20/17 13:50) GI MORPHINE Allergy (Unknown, Uncoded 02/20/17 13:50) Home Medications: Medication Instructions Recorded Clopidogrel Bisulfate [Plavix (*)] 75 mg PO DAILY #60 tab 10/22/16 Metoprolol Tartrate [Lopressor 25 25 mg PO BID #60 tab 10/22/16 mg (*)] Nitroglycerin [Nitrostat 0.4 mg 0.4 mg SL PRN PRN #1 btl 10/22/16 (*)] Aspirin [Aspirin 81mg (*)] 81 mg PO DAILY 02/20/17 predniSONE 20 mg PO 02/20/17 Medical Decision Making ED Course/Re-evaluation: The patient presents the ED with complaints of bilateral lower extremity edema in the setting of prednisone usage. I did review the patient's medication with the on-call admittance attendant Dr. Lionel Juan. The patient will be advised to take her 1/2 tablet of diuretic once daily. She should record daily weights. She should contact the nephrology office for any increasing weight with this intervention. The patient will be advised to return to the ED for increasing pain, redness, fever or other concerns. Departure - Departure Disposition: Home, Routine, Self-Care Clinical Impression: Peripheral edema Condition: Good Instructions: Leg Edema (ED) Additional Instructions: 1. Please take 1/2 of your diuretic tablet once daily. 2. Please recorder daily weights. If your gaining weight please contact your admittance attendant to review your medications. 3. Return to the ED for increasing pain, fever, chest pain, difficulty breathing or other concerns. Referrals: Jared Patricio MD [Primary Care Provider] - As per Instructions
[2017-02-20 15:13] VITALS: BP 183/93; PULSE 94; O2SAT 99
== END 2017-02-20 15:13 | disposition home or self-care (01) ==
DX: R60.0 Localized edema (principal); I10 Essential (primary) hypertension; Z79.82 Long term (current) use of aspirin

== ENCOUNTER 2017-03-22 11:53 | Inpatient (IN) | payer OTHER, MEDICARE ==
[2017-03-22] MEDS ORDERED: NS 1,000 ML IV ONE (12:20)
--- NOTE | 2017-03-22 12:24 | EDPHY ---
H & P Stated Complaint: weak, dark stools Time Seen by Provider: 03/22/17 12:11 HPI/ROS: CHIEF COMPLAINT: Dark stools, weakness HISTORY OF PRESENT ILLNESS: The patient is an 87-year-old female with a history of renal cell carcinoma status post nephrectomy 1 year ago as well as chronic kidney disease, diastolic heart failure with hospitalization in October for acute coronary syndrome with stent placement. Also gout and hypertension and hemorrhoids who presents to the emergency department complaining of dark stool for the last 3 days that she initially thought was from eating chocolate. She has also gone progressively more weak and easily fatigable. She denies any focal weakness. She denies shortness of breath. She denies chest pain. She denies recent fevers or illness although her has been hospitalized last week for influenza. REVIEW OF SYSTEMS: Constitutional: denies: chills, fever, recent illness, recent injury EENTM: denies: blurred vision, double vision, nose congestion Respiratory: denies: cough, shortness of breath Cardiac: denies: chest pain, irregular heart rate, lightheadedness, palpitations Gastrointestinal/Abdominal: See HPI Genitourinary: denies: dysuria, frequency, hematuria, pain Musculoskeletal: denies: joint pain, muscle pain Skin: denies: lesions, rash, jaundice, bruising Neurological: denies: headache, numbness, paresthesia, tingling, dizziness, weakness Hematologic/Lymphatic: denies: blood clots, easy bleeding, easy bruising Immunologic/allergic: denies: HIV/AIDS, transplant EXAM: GENERAL: Well-appearing, well-nourished and in no acute distress. HEAD: Atraumatic, normocephalic. EYES: Pupils equal round and reactive to light, extraocular movements intact, sclera anicteric, conjunctiva are normal. ENT: TMs normal, nares patent, oropharynx clear without exudates. Moist mucous membranes. NECK: Normal range of motion, supple without lymphadenopathy or JVD. LUNGS: Breath sounds clear to auscultation bilaterally and equal. No wheezes rales or rhonchi. HEART: Regular rate and rhythm without murmurs, rubs or gallops. ABDOMEN: Soft, nontender, normoactive bowel sounds. No guarding, no rebound. No masses appreciated. Rectal exam performed with dark stool, sent to lab nonbleeding hemorrhoids. BACK: No CVA tenderness, no spinal tenderness, step-offs or deformities EXTREMITIES: Normal range of motion, no pitting or edema. No clubbing or cyanosis. NEUROLOGICAL: Cranial nerves II through XII grossly intact. Normal speech, normal gait. 5/5 strength, normal movement in all extremities, normal sensation PSYCH: Normal mood, normal affect. SKIN: Warm, dry, normal turgor, no visible rashes or lesions. Source: Patient Exam Limitations: No limitations - Personal History Current Tetanus/Diphtheria Vaccine: Yes Current Tetanus Diphtheria and Acellular Pertussis (TDAP): Yes - Medical/Surgical History Hx Asthma: No Hx Chronic Respiratory Disease: No Hx Diabetes: No Hx Cardiac Disease: Yes Hx Renal Disease: Yes Hx Cirrhosis: No Hx Alcoholism: No Hx HIV/AIDS: No Hx Splenectomy or Spleen Trauma: No Other PMH: appendectomy, 1 ovary removed, hysterectomy, cholecystectomy, shingles/ Htn. Renal cell cancer, nephrectomy 04/29, HTN. CHF, cardiac stents - Family History Significant Family History: No pertinent family hx - Social History Smoking Status: Never smoked Alcohol Use: Sober Drug Use: None Constitutional: Initial Vital Signs Temperature (C) 36.6 C 03/22/17 11:59 Heart Rate 95 03/22/17 11:59 Respiratory Rate 16 03/22/17 11:59 Blood Pressure 136/63 H 03/22/17 11:59 O2 Sat (%) 95 03/22/17 11:59 O2 Delivery Mode Room Air Allergies/Adverse Reactions: codeine Allergy (Mild, Verified 03/22/17 11:58) GI MORPHINE Allergy (Unknown, Uncoded 03/22/17 11:58) Home Medications: Medication Instructions Recorded Clopidogrel Bisulfate [Plavix (*)] 75 mg PO DAILY #60 tab 10/22/16 Metoprolol Tartrate [Lopressor 25 25 mg PO BID #60 tab 10/22/16 mg (*)] Nitroglycerin [Nitrostat 0.4 mg 0.4 mg SL PRN PRN #1 btl 10/22/16 (*)] Aspirin [Aspirin 81mg (*)] 81 mg PO HS 02/20/17 Doxycycline Hyclate [Vibramycin 100 mg PO HS 03/22/17 100 MG (*)] Herbals/Supplements -Info Only 1 ea PO DAILY 03/22/17 Torsemide [Demadex 10 MG (RX)] 5 mg PO DAILY 03/22/17 predniSONE [predniSONE] 10 mg PO BID 03/22/17 Medical Decision Making - Diagnostics EKG Interpretation: The my trace few sinus rhythm, left bundle with repolarization abnormality unchanged from previous ED Course/Re-evaluation: 1:30 p.m. the patient is feeling much better. She does feel dehydrated and dry. I will start her on 0.5 L of fluid. I suspect that she is somewhat hemoconcentrated and anemia truly is responsible for the weakness. No signs of infection. I discussed case with Dr. Cochran who will admit to the medical service and requested we consult GI. 1:50 pm discussed the case with Dr. Vega who will consult Differential Diagnosis: Partial list of the Differential diagnosis considered include but were not limited to; dehydration, gastritis, infection and although unlikely based on the history and physical exam, I also considered sepsis, pneumonia, acute coronary disease. I discussed these differential diagnoses and the plan with the patient as well as the usual and expected course. The patient understands that the diagnosis is provisional and that in medicine we are not always correct and that further workup is often warranted. Usual and customary warnings were given. All of the patient's questions were answered. The patient was instructed to return to the emergency department should the symptoms at all worsen or return, otherwise to followup with the physician as we discussed. - Data Points Laboratory Results: Laboratory Results 03/22/17 12:24 03/22/17 12:24 Medications Given: Metoprolol Tartrate (Lopressor) 25 mg PO BID AYESHA Stop: 09/18/17 20:59 Last Admin: 03/22/17 21:13 Dose: 25 mg Discontinued Medications Sodium Chloride (Ns) 1,000 mls @ 0 mls/hr IV EDNOW ONE; Wide Open PRN Reason: Protocol Stop: 03/22/17 12:21 Last Admin: 03/22/17 13:13 Dose: Not Given Sodium Chloride (Ns) 500 mls @ 1,000 mls/hr IV EDNOW ONE PRN Reason: Protocol Stop: 03/22/17 13:49 Last Admin: 03/22/17 13:29 Dose: 500 mls Pantoprazole Sodium 80 mg/ (Sodium Chloride) 100 mls @ 200 mls/hr IV ONCE ONE Stop: 03/22/17 17:29 Last Admin: 03/22/17 17:50 Dose: 100 mls Dextrose/Sodium Chloride (D5w 1/2 Ns) 1,000 mls @ 100 mls/hr IV CONT AYESHA Stop: 03/23/17 03:59 Last Admin: 03/22/17 19:04 Dose: 1,000 mls Departure - Departure Disposition: [facility] Inpatient Acute Clinical Impression: GI bleeding Qualifiers: GI bleed type/associated pathology: melena Qualified Code(s): K92.1 - Melena Anemia Qualifiers: Anemia type: unspecified type Qualified Code(s): D64.9 - Anemia, unspecified Condition: Fair
[2017-03-22 12:37] LABS: PLATELET COUNT 229 10^3/uL (150-400)
[2017-03-22 12:56] LABS: INR 1.08 (0.83-1.16); PROTIME(PATIENT) 14.2 SEC (12.0-15.0)
[2017-03-22] MEDS ORDERED: NS 500 ML IV ONE (13:20)
--- NOTE | 2017-03-22 13:40 | CPEKG ---
Heart Rate: 82 RR Interval: 732 P-R Interval: 156 QRSD Interval: 142 QT Interval: 412 QTC Interval: 482 P Jerusalem: 57 QRS Jerusalem: -22 T Wave Jerusalem: 166 EKG Severity - ABNORMAL ECG - EKG Impression: SINUS RHYTHM EKG Impression: PROBABLE LEFT ATRIAL ABNORMALITY EKG Impression: LEFT BUNDLE BRANCH BLOCK Electronically Signed By: Itz Huynh 22-Mar-2017 13:43:40
--- NOTE | 2017-03-22 15:05 | PDGENHP ---
History and Physical History and Physical: Chief complaint: blood in stool History of present illness: The patient is an 86-year-old female who was admitted to the hospital for black colored stool x 2 days. Initially she thought it might have been dark from eating chocolate, but then she realized it was blood. She has associated diarrhea today. Typically she tends to be constipated. She has c/o fatigue x 2 weeks. She feels very weak and tired when she walks. Today she has a loss of appetite, but she was able to eat breakfast. She has not had symptoms like this in the past. Nothing seems to make her symptoms better or worse. Her microfilming document preparer at the [facility] had her prednisone the last couple months - first 20mg BID x 1 month, then prednisone 10mg BID this past month for a recent diagnosis of bullous pemphigoid. Last dose of prednisone was last night. Patient also takes a daily aspirin and Plavix for CAD, having received a coronary stent last September. Her outpatient Pallet Repairer is Dr. Barnes with [facility]. Pertinent ROS - no N/V/AP. No syncope. Past medical history: Bullous pemphigoid Renal cell carcinoma, status post right nephrectomy April 2016 CKD unknown stage with baseline creatinine 1.5 CAD, s/p recent stent Chronic diastolic heart failure Gout Hypertension Post herpetic neuralgia Past surgical history: R nephrectomy Ovary resection for cyst Total lap hysterectomy for subsequent ovary cyst Tonsillectomy Appendectomy Open cholecystectomy Medications: Please see medication reconciliation form. As per HPI - prednisone and DAPT. Allergies: Codeine Social history: Patient is . She lives with her at [facility] independent living facility in [place]. Denies alcohol/tobacco/rec drugs. She has 2 children, one from . Her other son lives in [place], she moved to here from [place] to be near his family. 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 Family history: Son- from Hodgkin lymphoma. Mother - NHL. Nephew - RCC. Son - kidney stones. Review of systems: 10 point review of systems was conducted and is negative except per HPI Physical exam: Vitals: Reviewed General: The patient is an elderly female who is alert and in no acute distress. HEENT: normocephalic, extraocular movements intact, conjunctivae clear but pale , no lesions on face. Mucous membranes moist. Neck: trachea midline, no visible masses, no external lesions. CV: +S1/S2, RRR, no MRG. +2 b/l pedal pulses. Resp: unlabored, CTAB no RRW. Abd: soft and nondistended. Bowel sounds present. Mild tenderness in epigastrium to deep palpation. Musculoskeletal: Normal muscle tone and bulk. Neuro: cranial nerves II XII grossly intact. Intact gross motor and sensory function. Psych: appropriate mood/affect. Skin: No pallor. + skin tears noted on bilateral lower legs. +red oswaldo skin around ankles c/w stasis dermatitis. Heme/lymph: +2 peripheral edema. Labs: WBC 12, Hgb 11.7, plt 229, RDW 15, nl coag panel, nl electrolytes except CO2 19. BUN 89, Cr 1.8. Nl glucose. Alb 3.3, TP 5.6, lipase 555. Other Data: EKG - SR, Rt 80, LBBB similar to prior EKG from last October. Impression and plan: Acute UGIB - 2/2 bleeding ulcer 2/2 steroid side effect Diarrhea with mild NAGMA Push 80mg IV Protonix followed by Protonix 40mg BID GI consulted for EGD - Dr. Vega over the horizon targeting supervisor - recs appreciated. NPO for procedure. IVF for now. Monitor H/H q8h. CAD w/ recent stent placement September 2016 Diastolic CHF, not in exacerbation Continue Plavix, hold Aspirin for now Discussed case w/ her Pallet Repairer Dr. Barnes, who recommends this Tx Bullous pemphigoid Chronic steroid use Hold steroid today. Consider to restarting prednisone soon at a 5mg dose to avoid adrenal insuff/ crisis. HTN continue BP meds when po [hold for HTN]. CKD w/ single kidney Hypovolemia IVF until po. Recheck labs in AM. Skin tears/wounds of b/l LE basic wound care (per nursing) VTE ppx - SCDs, if tolerated. Code status - DNR. Admitted for observation for UGIB and hemodynamic/cardiac monitoring until she can get EGD. I have called her PCP office - Naomi Matthews - and left message that patient was in the hospital for GIB. Other specialists - Nephro Dr. Meng, Derm - [facility].
[2017-03-22] MEDS ORDERED: PANTOPRAZOLE SODIUM 40 MG VIAL IVP ONE (15:36)
[2017-03-22] MEDS ORDERED: ONDANSETRON 4 MG/2 ML VIAL IVP PRN (16:05)
[2017-03-22] MEDS ORDERED: PROMETHAZINE HCL 25 MG/ML INJ IVP PRN (16:05)
[2017-03-22] MEDS ORDERED: ACETAMINOPHEN 325 MG TAB PO PRN (16:05)
[2017-03-22] MEDS ORDERED: PANTOPRAZOLE SODIUM 80 MG in NS 100 ML IV ONE (17:00)
[2017-03-22] MEDS ORDERED: D5W 1/2 NS 1,000 ML IV SCH (18:00)
[2017-03-22] MEDS: METOPROLOL TARTRATE 25 MG TAB PO SCH (21:13)
[2017-03-22] MEDS ORDERED: NITROGLYCERIN 0.4 MG BTL SL PRN (22:55)
--- NOTE | 2017-03-23 04:11 | GCON ---
[f rep st] CONSULTATION GI CONSULTATION DATE OF CONSULTATION: 03/22/2017 REASON FOR CONSULTATION: Melena. HISTORY OF PRESENT ILLNESS: The patient is an 87-year-old female with a history of renal cell carcin everton with status post nephrectomy 1 year ago, as well as underlying chronic renal insufficiency, diast olic heart failure, atherosclerotic cardiovascular disease with stent placement, hypertension, and go ut, who was admitted to the hospital today with 3-day history of passage of black, tarry stools. She has had progressively more severe weakness and fatigue, and was admitted to the hospital by Dr. Regan scanlon who asked me to see her in consultation for further evaluation. Patient denies any heartburn, mónica gestion, nausea, vomiting, or prior history of peptic ulcer disease. She has had no prior EGD. She did have a colonoscopy in her mid 70s which she stated was normal, and was told that she did not need another followup colonoscopy. MEDICATIONS: Prior to admission, included Plavix 75 mg p.o. daily, metoprolol 25 mg p.o. b.i.d., Nit rostat 0.4 mg sublingual p.r.n. chest pain, aspirin 81 mg daily, and prednisone 20 mg daily. ALLERGIES: She is allergic to codeine and morphine. PAST MEDICAL HISTORY: Significant for hypertension, renal cell carcinoma, was status post nephrectom y in April 2016, hypertension, congestive heart failure, and atherosclerotic cardiovascular diseas e. FAMILY HISTORY: Negative for GI malignancies. SOCIAL HISTORY: She is a nonsmoker. Does not drink alcohol. Is retired. Resides in [facility] . REVIEW OF SYSTEMS: Other than complaints of fatigue and black, tarry stool, were negative for compre hensive review of systems. PHYSICAL EXAMINATION: VITAL SIGNS: Today, temperature is 36.4, pulse 87 and regular, blood pressure 145/79, respiratory rate 18, O2 saturation 95% on room air. GENERAL: This is a well-developed, wel l-nourished female in no apparent distress. INTEGUMENT: Clear. HEENT: Head atraumatic, normocepha lic. Pupils equally round, reactive to light. EOMs intact. Sclerae nonicteric. Nares patent. Muc ous membranes moist. Dentition fair. NECK: Supple. Trachea midline. LYMPHATICS: No cervical or axillary adenopathy palpated. RESPIRATORY: Lungs clear to percussion, auscultation. CARDIOVASCULAR : Regular rhythm and rate. Normal S1, S2 without murmur. Peripheral pulses decreased bilaterally. There are venous stasis changes in the right and left lower extremities with +1 pitting edema. TONIE ROINTESTINAL: Abdomen supple. Positive bowel sounds. No liver or spleen tip palpable. No masses o r tenderness noted. EXTREMITIES: Without deformity. NEURO: Patient was alert and oriented x3. Th ere are no focal neurologic deficits. LABORATORY DATA: Hemoglobin on admission 11.7, with hydration now 10.5. Hematocrit went from 33.3 t o 30.4. MCV and MCHC were normal. RDW elevated at 15.5. Platelets 229,000. Pro-time 14.1, INR 1.0 8, PTT 26.9. Electrolytes normal. BUN 86, creatinine 1.8. LFTs normal. Lipase 555. Albumin 3.3. Urinalysis normal. Stool Hemoccult positive. IMPRESSION: 1. Melena in a patient on aspirin and Plavix. Rule out active peptic ulcer disease, doubt lower gas trointestinal source of bleeding. 2. Post-hemorrhagic anemia, mild. 3. Atherosclerotic cardiovascular disease. 4. Renal insufficiency with probable exacerbation due to bleed. 5. History of renal cell carcinoma with status post left nephrectomy. RECOMMENDATIONS: 1. Clear liquid diet tonight. 2. N.p.o. after midnight. 3. Esophagogastroduodenoscopy in the morning; due to the patient's multiple medical problems, includ ing cardiac issues, she is at increased risk for complication with conscious sedation, and endoscopy we will, therefore, perform with propofol anesthesia. /[id number]/MODL
[2017-03-23 05:31] LABS: PLATELET COUNT 179 10^3/uL (150-400)
[2017-03-23] MEDS ORDERED: PANTOPRAZOLE SODIUM 40 MG TAB PO SCH (09:00)
[2017-03-23] MEDS ORDERED: PANTOPRAZOLE SODIUM 40 MG VIAL IVP SCH (09:00)
--- NOTE | 2017-03-23 10:27 | PDANEPAE ---
ANE History of Present Illness Pt. with melena for GI workup ANE Past Medical History - Cardiovascular History Hx Hypertension: Yes Hx Coronary Artery / Peripheral Vascular Disease: Yes Hx CHF / Valvular Disease: Yes Cardiovascular History Comment: s/p stent placement - Pulmonary History Hx COPD: No Hx Asthma/Reactive Airway Disease: No Hx Recent Upper Respiratory Infection: No Hx Oxygen in Use at Home: No Hx Sleep Apnea: No Sleep Apnea Screening Result - Last Documented: Negative - Endocrine History Hx Diabetes: No Hypothyroid: No Hyperthyroid: No Obesity: mild - Renal History Hx Renal Disorders: Yes Renal History Comment: hx of renal cancer, s/p nephrectomy - Cancer History Hx Cancer: Yes Cancer History Comment: renal cancer - Other Health History Other Health History: Bullous pemphygoid - Chronic Pain History Chronic Pain: No - Surgical History Prior Surgeries: YADI, cholecystectomy, appendectomy, R nephrectomy ANE Review of Systems Review of Systems: - Exercise capacity METS (RN): 4 METS ANE Patient History - Allergies Allergies/Adverse Reactions: codeine Allergy (Mild, Verified 03/22/17 11:58) GI MORPHINE Allergy (Unknown, Uncoded 03/22/17 11:58) - Home Medications Home Medications: Aspirin [Aspirin 81mg (*)] 81 mg PO HS 02/20/17 [Last Taken 03/21/17] Doxycycline Hyclate [Vibramycin 100 MG (*)] 100 mg PO HS 03/22/17 [Last Taken ] Herbals/Supplements -Info Only 1 ea PO DAILY 03/22/17 [Last Taken Unknown] Torsemide [Demadex 10 MG (RX)] 5 mg PO DAILY 03/22/17 [Last Taken 03/22/17] predniSONE [predniSONE] 10 mg PO BID 03/22/17 [Last Taken 03/22/17] - NPO status NPO Since - Liquids (Date): 03/22/17 NPO Since - Liquids (Time): 00:00 NPO Since - Solids (Date): 03/22/17 NPO Since - Solids (Time): 08:00 - Smoking Hx Smoking Status: Never smoked - Alcohol Use Alcohol Use: Sober ANE Labs/Vital Signs - Labs Result Diagrams: 03/23/17 05:23 03/23/17 05:23 - Vital Signs Blood Pressure: 123/61 Heart Rate: 92 Respiratory Rate: 19 O2 Sat (%): 97 Height: 162.56 cm Weight: 68.946 kg ANE Physical Exam - Airway Neck exam: FROM (s) Mallampati Score: Class 3 (short TMD) Mouth exam: normal dental/mouth exam - Pulmonary Pulmonary: clear to auscultation - Cardiovascular Cardiovascular: regular rate and rhythym - ASA Status ASA Status: III ANE Anesthesia Plan Anesthesia Plan: GA with mask
[2017-03-23] MEDS ORDERED: LR 1,000 ML IV ONE (10:30)
[2017-03-23] MEDS ORDERED: PROPOFOL 200 MG/20 ML VIAL ONE (10:43)
[2017-03-23] MEDS ORDERED: NALOXONE HCL 0.4 MG/ML INJ IVP PRN (10:56)
--- NOTE | 2017-03-23 11:02 | GIREPORT ---
[facility] - Endoscopy Department Patient Name: Marika Anton Procedure Date: 03/23/2017 10:02 AM Patient Type: Inpatient Attending MD/ ER Physician: Omar Vega MD Procedure: Upper GI endoscopy Indications: Melena, Acute post hemorrhagic anemia Providers: Omar Vega MD Medicines: General Anesthesia Complications: No immediate complications. Description of Procedure: After obtaining informed consent, the endoscope was passed under direct vision. Throughout the procedure, the patient's blood pressure, pulse, and oxygen saturations were monitored continuously. The Endoscope was intro duced through the mouth, and advanced to the third part of duodenum. The uppe r GI endoscopy was accomplished without difficulty. The patient tolerated th e procedure well. Findings: The examined esophagus was normal. Multiple dispersed, small non-bleeding erosions were found in the gastr ic body and in the gastric antrum. There were no stigmata of recent bleedi ng. Biopsies were taken with a cold forceps for histology. One non-bleeding superficial duodenal ulcer with no stigmata of bleedin g was found in the first portion of the duodenum. The lesion was 10 mm in lar gest dimension. Estimated Blood Loss: Estimated blood loss: none. Post Op Diagnosis: - Normal esophagus. - Non-bleeding erosive gastropathy. Biopsied. - One non-bleeding duodenal ulcer with no stigmata of bleeding. Recommendation: - [facility]. - Resume regular diet today. - Use Protonix (pantoprazole) 40 mg PO daily for 2 months. - Await pathology results. - No ibuprofen, naproxen, or other non-steroidal anti-inflammatory drug s. Attending Participation: I personally performed the entire procedure. Omar Vega MD Omar Vega MD 03/23/2017 11:02:16 AM This report has been signed electronicallyOmar Vega MD Number of Addenda: 0 Note Initiated On: 03/23/2017 10:02 AM [email or web address]
[2017-03-23] MEDS: TORSEMIDE 10 MG TAB PO SCH (12:22)
[2017-03-23] MEDS: METOPROLOL TARTRATE 25 MG TAB PO SCH ×2 (12:23→20:42)
[2017-03-23] MEDS: CLOPIDOGREL BISULFATE 75 MG TAB PO SCH (12:23)
[2017-03-23] MEDS: PANTOPRAZOLE SODIUM 40 MG TAB PO SCH (12:23)
--- NOTE | 2017-03-23 13:49 | ASMTCMCOM ---
CM Note CM Note Notes: Pt. is an 87-year-old woman admitted with blood in her stool and weakness. Pt. w/ hx. stent, CAD, and renal cancer. Pt. lives w/ her at the [facility] per H&P. Pt. has one son in [place], one son from hodgkins lymphoma. Pt's PCP is is Naomi Matthews. OT is consulted. Await recommendations to assist in d/c planning. CM to follow. Date Signed: 03/23/2017 01:48 PM Electronically Signed By:Maria Elena Escalona LCSW
--- NOTE | 2017-03-23 14:08 | POSTANESTH ---
Post Anesthetic Evaluation Cardiovascular Status: Similar to Pre-Op Cond Respiratory Status: Normal, Stable Level of Consciousness/Mental Status: Can Participate in Eval Pain Control: Adequate, Prn Tx Ordered Nausea/Vomiting Control: Adequate, Prn Tx Ordered Complications Possibly Related to Anesthesia: None Noted
--- NOTE | 2017-03-23 14:21 | PDMN ---
Medical Necessity Medical necessity: change to IP; los>2mn for acute UGIB, diarrhea, REYNOLD on CKD; admit for IV protonix, GI consult w/EGD, serial H&H; comorbid CAD/ w stent on AC , bullous pemphigoid on chronic steroid, htn , single kidney; per addendum to H& P and order 03/23/17
--- NOTE | 2017-03-23 15:03 | HOSPPROG ---
Hospitalist Progress Note Assessment/Plan: 87-year-old female presents with symptoms of upper GI bleed. Endoscopy has shown 1 nonbleeding duodenal ulcer approximately 10 mm in largest diameter. She is currently on Protonix twice daily and improving. We are following her hemoglobin hematocrit. She tolerated the procedure well. There does not appear to be active bleeding at this time. Patient is new to me today -upper GI bleed secondary to a duodenal ulcer. Patient on Protonix and will avoid NSAIDs. If remains stable condition charge tomorrow -CHF with known diastolic dysfunction currently well compensated without signs of shortness of breath. -hypertension in good control Plan: PPI twice daily for 2 months. Follow up with GI of the [facility]. Follow H&H Subjective: No complaints no nausea or vomiting at this time Objective: Vital Signs Temp Pulse Resp BP Pulse Ox 37.0 C 97 16 117/55 L 98 03/23/17 14:33 03/23/17 14:33 03/23/17 14:33 03/23/17 14:33 03/23/17 14:33 PT 14.2 SEC (12.0-15.0) 03/22/17 12:24 INR 1.08 (0.83-1.16) 03/22/17 12:24 - Time Spent With Patient Time Spent with Patient: greater than 35 minutes Time Spent with Patient: Greater than 35 minutes spent on this patients care, greater than 50% of time spent counseling, educating, and coordinating care regarding the above mentioned plan. - Pending Discharge Pending Discharge Within 24 Hours: Yes Pending Discharge Date: 03/24/17 Pending Discharge Time: 11:00 - Physical Exam Constitutional: no apparent distress Eyes: PERRL, anicteric sclera Ears, Nose, Mouth, Throat: moist mucous membranes Cardiovascular: regular rate and rhythym, no murmur, rub, or gallop Respiratory: no respiratory distress, no rales or rhonchi, clear to auscultation Gastrointestinal: normoactive bowel sounds, soft, non-tender abdomen, no palpable masses Genitourinary: no bladder fullness Skin: warm Musculoskeletal: generalized weakness Neurologic: AAOx3, CN II-XII Intact ICD10 Worksheet Patient Problems: Problems Problem Status Onset GI bleeding Acute Anemia Acute Chronic Disease Mgmt/Transitional Care Acute Hydronephrosis Acute Renal mass, right Acute Hematuria Acute Dehydration Acute Worsening renal function Acute Ileus Acute Acute exacerbation of congestive heart failure Acute Elevated troponin I level Acute Hypoxia Acute
[2017-03-24 07:06] VITALS: RESP 20
[2017-03-24] MEDS: TORSEMIDE 10 MG TAB PO SCH (08:25)
[2017-03-24] MEDS: CLOPIDOGREL BISULFATE 75 MG TAB PO SCH (08:26)
[2017-03-24] MEDS: PANTOPRAZOLE SODIUM 40 MG TAB PO SCH (08:26)
[2017-03-24] MEDS: METOPROLOL TARTRATE 25 MG TAB PO SCH (08:26)
[2017-03-24 11:01] VITALS: BP 116/53; PULSE 79; TEMP 99.7; O2SAT 94
--- NOTE | 2017-03-24 11:43 | GDS ---
[f rep st] DISCHARGE SUMMARY DIAGNOSIS: Known acute diagnoses on this admission: 1. Acute upper gastrointestinal bleed secondary to a duodenal ulcer. 2. Congestive heart failure with diastolic dysfunction, well compensated. 3. Hypertension, currently in good control. 4. Code status is DNR. Chronic diagnoses: 1. Renal cell carcinoma, status post right nephrectomy in April 2016. 2. Chronic kidney disease with an unknown baseline with a creatinine of approximately 1.4-1.5. 3. Coronary artery disease, status post stent 3 months percutaneous transluminal angioplasty, and cu rrently on Plavix and will be continued. 4. Gout. No acute exacerbation. 5. Post herpetic neuralgia, in good control. 6. Bolus pemphigoid. CONSULTATION: Gastroenterology. PROCEDURE: Esophagogastroduodenoscopy performed on 03/23/2017, showing nonbleeding erosive gastropat hy which was biopsied and 1 nonbleeding duodenal ulcer with no stigmata of bleeding. HOSPITAL COURSE: This is an 87-year-old female, who presented with signs and symptoms of GI bleeding . She had black and tarry stools. Hemoglobin initially was 11 and fell to 8.8, and then júnior back t o 9.4, without needing a transfusion. INR was normal. Chemistry panel was normal except for a mildl y elevated lipase of 555. She did not have significant abdominal pain. An EGD showed non-bleeding g astritis or gastropathy, and a nonbleeding duodenal ulcer. It was presumed that this is the source o f her guaiac-positive stools. Her hemoglobin then remained stable. She had no further abdominal michael n and did not suffer any problems of hypertension or chest pain. She has underlying renal cell carcinoma which is under evaluation and care. She also receives predni sone for bullous pemphigoid. The patient has recently received a stent 3 months [employer] and the Plavix w ill be continued at discharge. Her aspirin will be stopped and she has been cautioned not to take an y NSAID medication. DISCHARGE MEDICATIONS: A new medication will be Protonix 40 mg p.o. b.i.d. Stopped medication will be aspirin and any NSAID medication. Her continued medications are Plavix 75 mg daily, Lopressor 25 mg twice b.i.d., nitroglycerin 0.4 mg sublingual p.r.n. chest pain, prednisone 10 mg b.i.d., herbal supplementation, Vibramycin 100 mg p.o. h.s., and Demadex 5 mg p.o. daily. PLAN: The patient's followup will be with Dr. Omar Vega or GI of the [facility] in 2-3 weeks to balbir mendez up on biopsies. She will also see her own PCP, Dr. Tha Matthews within the next month. The patient is discharged to the [facility], where she lives with independent living. The family is re ported to be obtaining help for her there but nursing care will not be necessary. Currently, the pat bob's is also ill, but he will be returning home in approximately 1 week. TIME: This discharge required 45 minutes, greater than 50% to youth counselor, coordinate care. /[id number]/MODL
--- NOTE | 2017-03-24 12:32 | ASDISCHSUM ---
Discharge Information Plan Status:Home with No Needs Medically Cleared to Leave: Discharge Date:03/24/2017 11:40 AM CM D/C Disposition:Home, Routine, Self-Care ADT D/C Disposition:Home, Routine, Self-Care Projected Discharge Date:03/24/2017 11:40 AM Transportation at D/C:Family Discharge Delay Reason: Follow-Up Date:03/24/2017 11:40 AM Discharge Slot: Final Diagnosis: Placement Information Patient Contact Information Contact Name:SOCORRO Relationship: [address] Work Phone: [facility] Phone: [facility]/Zip Code:[place] [address] Email: Financial Information Financial Class: Primary Plan Desc:MEDICARE INPATIENT Primary Plan Number:[id number] Secondary Plan Desc:AARP/MDR SUPPLEMENT Secondary Plan Number:[id number] Assessment Information LACE LACE Acuity / Level of Care Answers: Was the patient admitted to hospital via the emergency department? Yes: Comorbidities - select Answers: Mild liver or renal all that apply disease Any tumor (including lymphoma or leukemia) Emergency dept visits in Answers: 2 last 6 months Score: 9 Date Signed: 03/22/2017 12:07 PM Electronically Signed By:Ratna Dickey RN [facility] CM Progress Note CM Note CM Note Notes: Pt. is an 87-year-old woman admitted with blood in her stool and weakness. Pt. w/ hx. stent, CAD, and renal cancer. [facility]. [facility] per [facility]. Pt. has one son in [place], one son from hodgkins lymphoma. Pt's PCP is is Naomi Matthews. OT is consulted. Await recommendations to assist in d/c planning. CM to follow. Date Signed: 03/23/2017 01:48 PM Electronically Signed By:Maria Elena Escalona LCSW Case Management Discharge Plan Note Case Management Discharge Discharge Order Complete? Answers: Yes Patient to Obtain Answers: via Family Medications Transportation Arranged Answers: Family/Friends Discharge Comments Notes: Pt. d/c'ed today independently back to [facility]. Family supportive per MD notes. OT did not complete eval before Pt. d/c'ed. Date Signed: 03/24/2017 12:30 PM Electronically Signed By:Maria Elena Escalona LCSW Intervention Information Intervention Type:*CASTANEDA-Signed Date of Service:03/23/2017 09:48 AM Patient Type:Observation Staff Member:Manjula Mariee Hours: Discipline: Severity: Comment: Intervention Type:*Occurence 72 Date of Service:03/24/2017 12:16 PM Patient Type:Inpatient Staff Member:MAHIN Busby Susan Hours: Discipline: Severity: Comment:
== END 2017-03-24 11:40 | disposition home or self-care (01) | DRG 378 ==
LOC: F3E 15:53 → OBSVTOIN 03-23 12:26
PROVIDERS: ADMIT Internal Medicine; ATTEND Internal Medicine
PROC: 0DB68ZX Excision of Stomach, Via Natural or Artificial Opening Endoscopic, Diagnostic (ICD-10-PCS; principal; 2017-03-23 10:30)
DX: K26.4 Chronic or unspecified duodenal ulcer with hemorrhage (principal); K29.70 Gastritis, unspecified, without bleeding; R19.7 Diarrhea, unspecified; I12.9 Hypertensive chronic kidney disease with stage 1 through stage 4 chronic kidney disease, or unspecified chronic kidney disease; N18.9 Chronic kidney disease, unspecified; I25.10 Atherosclerotic heart disease of native coronary artery without angina pectoris; M10.9 Gout, unspecified; I50.32 Chronic diastolic (congestive) heart failure; Z85.528 Personal history of other malignant neoplasm of kidney; Z79.52 Long term (current) use of systemic steroids; Z90.5 Acquired absence of kidney; Z95.5 Presence of coronary angioplasty implant and graft; Z66 Do not resuscitate
CPT/HCPCS: G0378; J2704

== ENCOUNTER 2017-03-25 08:06 | Emergency (ER) | payer OTHER, MEDICARE ==
[2017-03-25 08:13] VITALS: RESP 16; O2SAT 98
--- NOTE | 2017-03-25 08:17 | EDPHY ---
H & P Stated Complaint: pt concerned having reaction to protonix-fatigue, itchy, facial swelling Time Seen by Provider: 03/25/17 08:17 - Medical/Surgical History Hx Asthma: No Hx Chronic Respiratory Disease: No Hx Diabetes: No Hx Cardiac Disease: Yes Hx Renal Disease: Yes Hx Cirrhosis: No Hx Alcoholism: No Hx HIV/AIDS: No Hx Splenectomy or Spleen Trauma: No Other PMH: appendectomy, 1 ovary removed, hysterectomy, cholecystectomy, shingles/ Htn. Renal cell cancer, nephrectomy 04/29, HTN. CHF, cardiac stents, gi bleed - Social History Smoking Status: Never smoked Constitutional: Initial Vital Signs Temperature (C) 37.0 C 03/25/17 08:10 Heart Rate 73 03/25/17 08:10 Respiratory Rate 16 03/25/17 08:10 Blood Pressure 120/56 L 03/25/17 08:10 O2 Sat (%) 98 03/25/17 08:10 O2 Delivery Mode Room Air Allergies/Adverse Reactions: codeine Allergy (Mild, Verified 03/22/17 11:58) GI MORPHINE Allergy (Unknown, Uncoded 03/22/17 11:58) Home Medications: Medication Instructions Recorded Clopidogrel Bisulfate [Plavix (*)] 75 mg PO DAILY #60 tab 10/22/16 Metoprolol Tartrate [Lopressor 25 25 mg PO BID #60 tab 10/22/16 mg (*)] Nitroglycerin [Nitrostat 0.4 mg 0.4 mg SL PRN PRN #1 btl 10/22/16 (*)] Doxycycline Hyclate [Vibramycin 100 mg PO HS 03/22/17 100 MG (*)] Herbals/Supplements -Info Only 1 ea PO DAILY 03/22/17 Torsemide [Demadex] 5 mg PO DAILY 03/22/17 predniSONE 10 mg PO BID 03/22/17 Acetaminophen [Tylenol 325mg (*)] 650 mg PO Q4HRS PRN tab 03/24/17 Pantoprazole Sodium [Protonix] 40 mg PO BID #60 tablet. 03/24/17 Lansoprazole [Lansoprazole 15 mg] 15 mg PO BID #60 capsule. 03/25/17 Medical Decision Making ED Course/Re-evaluation: CHIEF COMPLAINT: Itching, facial swelling, fatigue HISTORY OF PRESENT ILLNESS: The patient is an anticoagulated 87 y/o female complaining of fatigue, itchiness , and facial swelling after stopping her prednisone 3-4 days ago. She has been on prednisone for 3 months for bullous pemphigoid, but discontinued it during a recent admission for a bleeding gastric ulcer. She was discharged on pantoprazole yesterday. She has noticed fatigue and diffuse pruritus over the last couple days and attributes her symptoms to the addition of the pantoprazole. She was not sure which of her normal medications to restart and has only been taking her Plavix and antihypertensive. She was not tapered down from her prednisone. She's also noticed increased thirst and decreased urination and her family thinks her face looks more swollen. She denies lightheadedness, chest pain, headache, dyspnea, fever, or other complaints. REVIEW OF SYSTEMS: A 10 point review of systems was performed and is negative with the exception of the elements mentioned in the history of present illness. PHYSICAL EXAM: HR, BP, O2 Sat, RR. Temp noted General Appearance: Alert, well hydrated, appropriate, and non-toxic appearing. Head: Atraumatic without scalp tenderness or obvious injury, mild diffuse facial edema Eyes: Pupils equal, round, reactive to light and accommodation, EOMI, no trauma , no injection. Nose: Atraumatic, no rhinorrhea, clear. Throat: Mucus membranes moist. Neck: Supple, nontender, no lymphadenopathy. Respiratory: No retractions, no distress, no wheezes, and no accessory muscle use. Lungs are clear to auscultation bilaterally. Cardiovascular: Regular rate and rhythm, no murmurs, rubs, or gallops. Good capillary refill all extremities. Gastrointestinal: Abdomen is soft, nontender, non-distended, no masses, no rebound, no guarding, no peritoneal signs. Musculoskeletal: Normal active ROM of all extremities, atraumatic. Neurological: Alert, appropriate, and interactive. The patient has non-focal cranial nerves, motor, sensory, and cerebellar exam. Skin: No rashes, good turgor, no nodules on palpation. Diffuse excoriations, no evidence of infection. Past medical history: Bullous pemphigoid, renal cell carcinoma, CKD unknown stage with baseline creatinine 1.5, CAD, chronic diastolic heart failure, gout, hypertension, post herpetic neuralgia Past surgical history: Right nephrectomy 2016, cardiac stent, ovary resection for cyst, total hysterectomy for subsequent ovarian cyst, appendectomy , cholecystectomy, tonsillectomy Family history: Noncontributory Social history: Lives in independent living at [facility]. Family member at bedside. Prior medical records reviewed including admission 03/22/17 for blood in her stool. DIFFERENTIAL DIAGNOSIS: The differential diagnosis for the patient's symptoms included but was not limited to adrenal insufficiency due to sudden discontinuation of prednisone, Addisonian crisis, medication reaction, UTI, electrolyte abnormality, other infectious causes. MEDICAL DECISION MAKING: This is an 87 y/o female on chronic prednisone who presents with fatigue, itchiness, and facial swelling following sudden discontinuation of her prednisone 3-4 days ago during hospital admission. She did not restart her prednisone once home due to confusion regarding what medications to take. She also has some urinary symptoms that could be related to this or a UTI. Presentation is consistent with adrenal insufficiency from prednisone withdrawal. Plan for UA and restarting prednisone with 20mg here. Patient is ambulating well and feels ready to go home. She will return if she has worsening or unimproving urinary symptoms and we will contact her if her UA is positive. Return precautions and specific prednisone dosing instructions discussed. She is comfortable with this plan. - Data Points Medications Given: Discontinued Medications Prednisone (Prednisone) 20 mg PO EDNOW ONE Stop: 03/25/17 08:52 Last Admin: 03/25/17 08:58 Dose: 20 mg Departure - Departure Disposition: Home, Routine, Self-Care Clinical Impression: Adrenal insufficiency due to corticosteroid withdrawal Condition: Good Instructions: Secondary Adrenal Insufficiency (ED) Additional Instructions: 1. Resume taking 20mg prednisone daily. Take 10mg in the morning and 10mg at night. 2. Take lansoprazole twice daily for ulcer. 3. Follow up with your primary care provider for unimproved symptoms over the next few days. 4. Return to the ED for worsening of condition. Referrals: HOMERO GALVAN [Retired Resigned] - As per Instructions Prescriptions: Lansoprazole [Lansoprazole 15 mg] 15 mg PO BID #60 capsule. Report Scribed for: Gorge Felix Report Scribed by: Norma Coates Date of Report: 03/25/17 Time of Report: 08:59
[2017-03-25] MEDS ORDERED: predniSONE 20 MG TAB PO ONE (08:51)
[2017-03-25 10:11] VITALS: BP 122/80; PULSE 72; TEMP 97.7
== END 2017-03-25 10:04 | disposition home or self-care (01) ==
DX: E27.3 Drug-induced adrenocortical insufficiency (principal); T38.0X5A Adverse effect of glucocorticoids and synthetic analogues, initial encounter; I11.0 Hypertensive heart disease with heart failure; I50.9 Heart failure, unspecified; Z85.528 Personal history of other malignant neoplasm of kidney
CPT/HCPCS: 99283; J7512

== ENCOUNTER 2017-03-31 18:35 | Inpatient (IN) | payer OTHER, MEDICARE ==
[2017-03-31] MEDS ORDERED: NS 500 ML IV ONE (19:49)
[2017-03-31] MEDS ORDERED: PANTOPRAZOLE SODIUM 80 MG in NS 100 ML IV ONE ×2 (19:50→20:30)
--- NOTE | 2017-03-31 19:57 | CPEKG ---
Heart Rate: 82 RR Interval: 732 P-R Interval: 152 QRSD Interval: 130 QT Interval: 436 QTC Interval: 510 P [place]: 56 QRS [place]: -25 T Wave [place]: 143 EKG Severity - ABNORMAL ECG - EKG Impression: SINUS RHYTHM EKG Impression: PROBABLE LEFT ATRIAL ABNORMALITY EKG Impression: LEFT BUNDLE BRANCH BLOCK Electronically Signed By: Cary Cai 31-Mar-2017 21:26:59
[2017-03-31] MEDS ORDERED: PANTOPRAZOLE SODIUM 80 MG in NS 100 ML IV SCH (20:00)
[2017-03-31 20:04] LABS: PLATELET COUNT 344 10^3/uL (150-400)
--- NOTE | 2017-03-31 20:43 | EDPHY ---
H & P Time Seen by Provider: 03/31/17 19:42 HPI/ROS: HPI Fatigue, history of gastrointestinal bleeding. Black stools. 87-year-old female by private vehicle with her . This patient has a history of ulcerative gastritis and duodenal ulcers. She was seen in the emergency department last Monday for loose black stool and fatigue. She was admitted for gastrointestinal bleeding. She had an EGD done by Gastroenterology of the [facility]. This showed multiple nonbleeding gastric erosions and 1 larger nonbleeding duodenal erosion. She returns to the emergency department after seen her primary care physician earlier today with complaint of fatigue. Her hemoglobin at her primary care physician's office was 7.2. She reports continued black stool which is well-formed at this time. She is not on anticoagulation or antiplatelet medications at this time. She has been taking a proton pump inhibitor. ROS: Constitutional: No fever, no chills. As above. Eyes: No discharge. No changes in vision. ENT: No sore throat. No nasal congestion or rhinorrhea. Respiratory: No cough. No shortness of breath. Cardiac: No chest pain, no palpitations. Gastrointestinal: No abdominal pain, no vomiting, no diarrhea. As above. Genitourinary: No hematuria. No dysuria or increased frequency with urination. Musculoskeletal: No back pain. No neck pain. No myalgias or arthralgias. Skin: No rashes. Neurological: No headache. No focal weakness or altered sensation. Past medical history: Gastrointestinal bleeding, congestive heart failure, hypertension, renal cell carcinoma, chronic kidney disease, coronary artery disease, gout, bolus pemphigoid, post herpetic neuralgia, DNR status. Social history: Here with family member. Nonsmoker. No alcohol. Physical Exam: General Appearance: Alert, no distress. This patient is responding to questions appropriately and in full sentences. This patient appears well- hydrated and well-nourished. Eyes: Pupils equal and round no pallor or injection. No lid edema, erythema or injection. Respiratory: There are no retractions, lungs are clear to auscultation with good air movement bilaterally. Cardiovascular: Regular rate and rhythm. No murmur. Gastrointestinal: Abdomen is soft and nontender, no masses, bowel sounds normal. No focal tenderness at McBurney's point. No Faria sign. Rectal exam: No gross bleeding. Dark hard stool. Neurological: Motor sensory function is grossly intact. Cranial nerves are normal. Gait is normal. Skin: Warm and dry, no rashes. Musculoskeletal: Neck is supple and nontender. Extremities are symmetrical. All joints range without pain or impingement. Psychiatric: No agitation. No depression. Database: EKG: EKG time is 7:55 p.m.; EKG shows a narrow complex normal sinus rhythm with a ventricular rate of 82. The MD, QT intervals are within normal limits. Left bundle branch noted. There are no ST-T wave changes indicative of ischemic or injury pattern. No evidence of right heart strain. No significant change from prior EKG 03/22/2017. Interpreted by me. Imaging: Procedures: Emergency department course: IV was placed. The patient has been typed and screened from previous admission. Initial H&H at [facility] showed a hemoglobin of 7.2. Repeat hemoglobin here is 7.9. Potassium 5.5 on [facility] blood work from earlier today. Basic metabolic panel will be repeated. Hyperkalemia initially to be treated with IV fluids. Vital signs reviewed and are within normal limits. Discussed plan with patient and family for readmission to the hospital and gastroenterology consultation. Spoke with on-call hospitalist Dr. Wojciech Ledezma. They will consult with Gastroenterology. Patient will be transfused 1 U of PRBC in the emergency department. Patient admitted to the hospitalist service in stable condition. Differential Diagnosis: The differential diagnosis on this patient includes but is not limited to anemia , upper gastrointestinal bleeding. This represents a partial list of diagnoses considered. These considerations are based on history, physical exam, past history, reassessment and diagnostic testing. Smoking Status: Never smoked Constitutional: Initial Vital Signs Temperature (C) 37 C 03/31/17 18:53 Heart Rate 99 03/31/17 18:53 Respiratory Rate 18 03/31/17 18:53 Blood Pressure 104/71 03/31/17 18:53 O2 Sat (%) 95 03/31/17 18:53 O2 Delivery Mode Room Air Allergies/Adverse Reactions: codeine Allergy (Mild, Verified 03/31/17 18:52) GI MORPHINE Allergy (Unknown, Uncoded 03/22/17 11:58) Home Medications: Medication Instructions Recorded Clopidogrel Bisulfate [Plavix] 75 mg PO DAILY 03/31/17 Doxycycline Hyclate [Vibramycin 100 mg PO DAILY 03/31/17 100 MG (*)] Lansoprazole [Prevacid] 15 mg PO BID 03/31/17 Metoprolol Tartrate [Lopressor 25 25 mg PO BID 03/31/17 mg (*)] Renal Vitamin Tablet 1 tab PO DAILY 03/31/17 Torsemide 5 mg PO DAILY 03/31/17 predniSONE [Prednisone] 10 mg PO BID 03/31/17 Medical Decision Making - Data Points Laboratory Results: Laboratory Results 03/31/17 19:30 03/31/17 19:30 03/31/17 03/31/17 19:30 19:30 Smear Review By Guanako TIAN MD Patient ABO/Rh A POSITIVE Antibody Screen NEGATIVE Crossmatch IS Only See Detail Medications Given: Doxycycline Hyclate (Doxycycline Hyclate) 100 mg PO DAILY AYESHA PRN Reason: Protocol Stop: 05/01/17 08:59 Last Admin: 04/01/17 07:55 Dose: 100 mg Pantoprazole Sodium 80 mg/ (Sodium Chloride) 100 mls @ 10 mls/hr IV Q10H AYESHA Stop: 09/27/17 22:59 Last Admin: 04/01/17 10:37 Dose: 100 mls Metoprolol Tartrate (Lopressor) 25 mg PO BID AYESHA Stop: 09/28/17 08:59 Last Admin: 04/01/17 07:56 Dose: 25 mg Vitamin B Complex/Vit C/Folic Acid (Jenn-Jones) 1 each PO DAILY AYESHA Stop: 09/28/17 08:59 Last Admin: 04/01/17 07:55 Dose: 1 each Discontinued Medications Sodium Chloride (Ns) 500 mls @ 0 mls/hr IV EDNOW ONE; Wide Open PRN Reason: Protocol Stop: 03/31/17 19:50 Last Admin: 03/31/17 20:34 Dose: 500 mls Pantoprazole Sodium 80 mg/ (Sodium Chloride) 100 mls @ 10 mls/hr IV Q10H [facility] Stop: 09/27/17 19:59 Last Admin: 03/31/17 23:28 Dose: Not Given Pantoprazole Sodium 80 mg/ (Sodium Chloride) 100 mls @ 200 mls/hr IV ONCE ONE Stop: 03/31/17 20:19 Last Admin: 03/31/17 23:27 Dose: Not Given Pantoprazole Sodium 80 mg/ (Sodium Chloride) 100 mls @ 200 mls/hr IV EDNOW ONE Stop: 03/31/17 20:59 Last Admin: 03/31/17 20:34 Dose: 100 mls Sodium Chloride (Ns) 1,000 mls @ 50 mls/hr IV CONT AYESHA Stop: 04/01/17 08:00 Last Admin: 03/31/17 22:01 Dose: 1,000 mls Departure - Departure Disposition: [facility] Acute Clinical Impression: Gastrointestinal bleeding, upper, Anemia, Hyperkalemia, Renal insufficiency Condition: Good
[2017-03-31] MEDS ORDERED: ONDANSETRON DISINTEGRATING 4 MG TAB PO PRN (21:12)
[2017-03-31] MEDS ORDERED: ACETAMINOPHEN 325 MG TAB PO PRN (21:12)
[2017-03-31] MEDS ORDERED: ONDANSETRON 4 MG/2 ML VIAL IVP PRN (21:12)
[2017-03-31] MEDS ORDERED: ZOLPIDEM TARTRATE 5 MG TAB PO PRN (21:13)
[2017-03-31] MEDS ORDERED: NS 1,000 ML IV SCH (21:15)
--- NOTE | 2017-03-31 21:16 | PDGENHP ---
History and Physical History and Physical: CC: Fatigue and weakness and ongoing melenic stools after recent upper GI bleed HISTORY: This patient presented initially on March 23 with an upper GI bleed and a decrease in her hemoglobin to the 9+ range. She did not require transfusion and was hemodynamically stable. Upper endoscopy showed erosive gastritis with several erosions as well as a duodenal ulcer with no active bleeding at the time of the study. She was treated with proton pump inhibitors and discharged the following day. She was taking Protonix twice daily at discharge. Notable is that the patient was taking aspirin and Plavix prior to this previous admission because of a history of coronary stents placed in September 2016. Also she was taking prednisone at 20 mg daily because of a chronic itchy rash with some blistering the name for which she could not recall. She said the rash has been present for approximately 1 year and she had taken the prednisone for approximately 2 months prior to the last admission. As she went home from this most recent admission on the she was told to stay off the aspirin, continue her Plavix, and continue her prednisone. ROS: A comprehensive 10 system review revealed no other significant findings PAST MEDICAL HISTORY: Bullous pemphigoid Renal cell carcinoma, status post right nephrectomy April 2016 CKD unknown stage with baseline creatinine 1.5 CAD, s/p with stents placed in September 2016 Chronic diastolic heart failure Gout Hypertension Post herpetic neuralgia Past surgical history: R nephrectomy Ovary resection for cyst Total lap hysterectomy for subsequent ovary cyst Tonsillectomy Appendectomy Open cholecystectomy FAMILY MEDICAL HISTORY: Family history: Son- from Hodgkin lymphoma. Mother - NHL. Nephew - RCC. Son - kidney stones. SOCIAL HISTORY: Social history: Patient is . She lives with her at [facility] living [facility] in [place]. Denies alcohol/tobacco/rec drugs. She has 2 children, one from . Her other son lives in [place], she moved to here from [place] to be near his family. 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 MEDICATIONS: The patients list has been reconciled by our clinical pharmacist in the EMR. I have reviewed the list and ordered appropriate medicines. PHYSICAL EXAMINATION: Vital Signs: Stable blood pressure pulse respirations and no fever Recessing Machine Operator: Sinus rhythm Examination: General: alert, oriented, good mentation, relaxed Skin: warm, dry, good color, no rash HEENT: normal Neck: no mass or jvd Resps: relaxed Lungs: clear breath sounds Heart: regular, no murmur Abdomen: soft, nondistended, nontender, +BS, no mass Upper Extremities: normal Lower Extremities: no edema, warm No Bleeding or bruising Neurologic: normal speech/language, normal 3rd mate, no focal weakness IV site: looks normal LABORATORY DATA: Hemoglobin this morning 7.5 and was most recently at 9+ on last day of her recent hospital stay Creatinine has bumped up to 2.1 from 1.6 last week which is her actual baseline as well Potassium is high tonight at 5.8 as well RADIOLOGY STUDIES: None so far 12 LEAD EKG: I reviewed today's 12 lead EKG in the ER and compared to previous tracings, she has sinus rhythm with a left bundle branch block unchanged from previous tracings ASSESSMENT: -symptomatic anemia, with post hemorrhagic anemia as the cause; hemoglobin now on the 7 range -ongoing melenic stools and decreased hemoglobin in a patient with known duodenal ulcer and gastric erosions who has been continuing on her Plavix and prednisone since last admission, along with taking twice daily Protonix -coronary artery disease with stents placed in September 2016; no current symptoms of angina or heart failure -acute renal failure on chronic that has occurred since her discharge on March 24, and likely hemodynamic origin from the above -currently on steroids for history of bullous pemphigoid which is the diagnosis listed in her chart This patient is at fairly high risk, caught between issues of ongoing bleeding and risk for thrombus, with stents in place and diagnosis of bullous pemphigoid currently on steroid PLANS: -inpatient admission at this time -I reviewed her case with Dr. Christopher Nicholson who will see the patient -I recommended to the patient and her that we give her transfusion of packed red blood cells now, and they are in agreement with that after discussion of the risks and benefits -continue twice daily proton pump inhibitors -follow hemoglobin and vital signs very closely -no current indication to repeat endoscopies at this time but that may be indicated if she has ongoing bleeding to consider coagulation or similar procedures -follow renal function closely with the resuscitation efforts -will give her some IV iron at this time -continue to hold her aspirin, and at this time will also hold her Plavix and her prednisone and follow closely for any signs of angina or adrenal insufficiency I have reviewed the patient's case in detail with Dr. Christopher Nicholson I have reviewed the patient's past medical records as part of this assessment, including previous hospital in clinic records and laboratory data
[2017-04-01] MEDS: PANTOPRAZOLE SODIUM 80 MG in NS 100 ML IV SCH ×3 (02:13→20:14)
--- NOTE | 2017-04-01 03:01 | PDMN ---
Medical Necessity Medical necessity: C/M review: est. 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
[2017-04-01] MEDS: NEPHROVITE FOLIC ACID/VIT B&C 1 TAB PO SCH (07:55)
[2017-04-01] MEDS: DOXYCYCLINE HYCLATE 100 MG CAP/TAB PO SCH (07:55)
[2017-04-01] MEDS: METOPROLOL TARTRATE 25 MG TAB PO SCH ×2 (07:56→20:09)
--- NOTE | 2017-04-01 11:29 | ASMTCMCOM ---
CM Note CM Note Notes: Pt is an 87-year-old woman admitted due to lower GI bleeding. Hx. CAD, stent, renal cancer. Pt. moved to [place] to be close to her son. Formerly lived in [place]. Pt. lives w/ her at the [facility]. Pt.'s last d/c from [facility] was on 03/24/17 and she went home independently at that time. Await OT consult to assist in d/c planning. CM to follow. Date Signed: 04/01/2017 11:29 AM Electronically Signed By:Maria Elena Escalona LCSW
--- NOTE | 2017-04-01 12:47 | SOAPPROG ---
SOAP Progress Note Assessment/Plan: Assessment:Plan: full dictated consult to follow seen earlier today recurrent anemia with mild bump in BUN/Cr will need repeat EGD and if negative then colonoscopy +/- capsule endoscopy 04/01/17 12:46 Objective: Vital Signs Temp Pulse Resp BP Pulse Ox 36.5 C 66 16 125/65 H 95 04/01/17 10:57 04/01/17 10:57 04/01/17 10:57 04/01/17 10:57 04/01/17 10:57 Laboratory Results 04/01/17 08:24 04/01/17 08:24 03/31/17 04/01/17 04/02/17 05:59 05:59 05:59 Intake Total 1100 Balance 1100 ICD10 Worksheet Patient Problems: Problems Problem Status Onset Anemia Acute Gastrointestinal bleeding, upper Acute Acute exacerbation of congestive heart failure Acute Chronic Disease Mgmt/Transitional Care Acute Dehydration Acute Elevated troponin I level Acute GI bleeding Acute Hematuria Acute Hydronephrosis Acute Hypoxia Acute Ileus Acute Renal mass, right Acute Worsening renal function Acute
--- NOTE | 2017-04-01 13:50 | PDHPUP ---
History & Physical Update H&P update statement: This history and physical update is based on an assessment of the patient which was completed after admission or registration (within 24 hours), but prior to the surgery/procedure.
--- NOTE | 2017-04-01 13:55 | PDANEPAE ---
ANE History of Present Illness EGD for anemia ANE Past Medical History - Cardiovascular History Hx Hypertension: Yes Hx Coronary Artery / Peripheral Vascular Disease: Yes Hx CHF / Valvular Disease: Yes Cardiovascular History Comment: s/p stent placement - Pulmonary History Hx COPD: No Hx Asthma/Reactive Airway Disease: No Hx Recent Upper Respiratory Infection: No Hx Oxygen in Use at Home: No Hx Sleep Apnea: No Sleep Apnea Screening Result - Last Documented: Negative - Endocrine History Hx Diabetes: No - Renal History Hx Renal Disorders: Yes Renal History Comment: hx of renal cancer, s/p nephrectomy - Cancer History Hx Cancer: Yes Cancer History Comment: renal cancer - Other Health History Other Health History: Bullous pemphygoid - Chronic Pain History Chronic Pain: No - Surgical History Prior Surgeries: YADI, cholecystectomy, appendectomy, R nephrectomy ANE Review of Systems Review of Systems: - Exercise capacity METS (RN): 3 METS ANE Patient History - Allergies Allergies/Adverse Reactions: codeine Allergy (Mild, Verified 03/31/17 18:52) GI MORPHINE Allergy (Unknown, Uncoded 03/22/17 11:58) - Home Medications Home medications: home medication list seen and reviewed Home Medications: Clopidogrel Bisulfate [Plavix] 75 mg PO DAILY 03/31/17 [Last Taken 03/31/17] Doxycycline Hyclate [Vibramycin 100 MG (*)] 100 mg PO DAILY 03/31/17 [Last Taken 03/31/17] Lansoprazole [Prevacid] 15 mg PO BID 03/31/17 [Last Taken 03/31/17] Metoprolol Tartrate [Lopressor 25 mg (*)] 25 mg PO BID 03/31/17 [Last Taken ] Renal Vitamin Tablet 1 tab PO DAILY 03/31/17 [Last Taken 03/31/17] Torsemide 5 mg PO DAILY 03/31/17 [Last Taken 03/31/17] predniSONE [Prednisone] 10 mg PO BID 03/31/17 [Last Taken 03/31/17] - NPO status NPO Status: no food or drink >8 hours NPO Since - Liquids (Date): 03/31/17 NPO Since - Liquids (Time): 20:00 NPO Since - Solids (Date): 03/31/17 NPO Since - Solids (Time): 18:00 - Anes Hx Anes Hx: no prior problems - Smoking Hx Smoking Status: Never smoked - Alcohol Use Alcohol Use: None - Family Anes Hx Family Anes Hx: none ANE Labs/Vital Signs - Labs Result Diagrams: 04/01/17 08:24 04/01/17 08:24 - Vital Signs Blood Pressure: 125/65 Heart Rate: 66 Respiratory Rate: 16 O2 Sat (%): 95 Height: 162.56 cm Weight: 70.307 kg ANE Physical Exam - Airway Mallampati Score: Class 2 Mouth exam: poor dentition - Pulmonary Pulmonary: no respiratory distress - Cardiovascular Cardiovascular: regular rate and rhythym - ASA Status ASA Status: III ANE Anesthesia Plan Anesthesia Plan: GA with mask
[2017-04-01] MEDS ORDERED: PROPOFOL/EMULSION 500 MG/50 ML BOTTLE IV ONE (13:58)
[2017-04-01] MEDS ORDERED: LIDOCAINE 2% 100 MG/5 ML SYR ONE (13:58)
--- NOTE | 2017-04-01 14:14 | POSTOPPROG ---
Post Op Note Date of Operation: 04/01/17 Surgeon: Christopher Nicholson Anesthesiologist: Gerald Anesthesia: Other (Specify) (IV general) Pre-op Diagnosis: anemia Post-op Diagnosis: mild gastritis and duodenitis - no source of continued blood loss on EGD Indication: anemia Procedure: EGD and bx Findings: nml esoph, mild gastritis, mnild duodentits - no ulcer no mass Inf/Abcess present in the surg proc area at time of surgery?: No EBL: Minimal (few ml from cold bx) Total fluids administered: 200ml LR Complications: none immediate
--- NOTE | 2017-04-01 14:19 | GIREPORT ---
[facility] - Endoscopy Department Patient Name: Marika Anton Procedure Date: 04/01/2017 2:03 PM Patient Type: Inpatient Attending MD/ ER Physician: Ivone Kc Procedure: Upper GI endoscopy Indications: Suspected upper gastrointestinal bleeding in patient with unexplained i pablo deficiency anemia Providers: Dion Nicholson MD Medicines: Sedation Required Anesthesia Staff Assistance Complications: No immediate complications. Estimated blood loss: Minimal. Description of Procedure: After obtaining informed consent, the endoscope was passed under direct vision. Throughout the procedure, the patient's blood pressure, pulse, and oxygen saturations were monitored continuously. The Endoscope was intro duced through the mouth, and advanced to the third part of duodenum. The uppe r GI endoscopy was accomplished without difficulty. The patient tolerated th e procedure well. Findings: The examined esophagus was normal. Scattered minimal inflammation characterized by erythema, friability an d granularity was found in the gastric antrum. Scattered mild inflammation characterized by erythema, friability and granularity was found in the duodenal bulb and in the second portion of the duodenum. Biopsies were taken with a cold forceps for histology. Estima aron blood loss was minimal. The exam was otherwise without abnormality. Estimated Blood Loss: Estimated blood loss was minimal. Post Op Diagnosis: - Normal esophagus. - Gastritis. - Duodenitis. Biopsied. - The examination was otherwise normal. Recommendation: - Await pathology results. - My office will call with the pathology result with 5-7 days. If you h ave not heard from my office by 12-14, do not assume the pathology is radha l, please call [phone] to get the pathology results. - Use Protonix (pantoprazole) 40 mg PO daily for 8 weeks. - Perform a colonoscopy at appointment to be scheduled. - Return patient to [facility] for [facility] care. - Clear liquid diet. Needs to prep for colonoscopy. - Thank you for allowing me to help in your patient's care. Do not hesi ngo to call with any questions. Attending Participation: I personally performed the entire procedure. Lyn Ashley M.D Dion Nicholson MD 04/01/2017 2:19:01 PM This report has been signed electronicallyMathew MD Lyn Number of Addenda: 0 Note Initiated On: 04/01/2017 2:03 PM [email or web address]
[2017-04-01] MEDS ORDERED: LR 500 ML IV PRN (14:21)
[2017-04-01] MEDS ORDERED: PHENYLEPHRINE HCL 100 MCG/ML SYR IVP PRN (14:21)
[2017-04-01] MEDS ORDERED: DEXAMETHASONE 4 MG/ML VIAL IVP PRN (14:21)
[2017-04-01] MEDS ORDERED: ONDANSETRON 4 MG/2 ML VIAL IVP PRN (14:21)
[2017-04-01] MEDS ORDERED: fentaNYL 100 MCG/2 ML INJ IVP PRN (14:21)
[2017-04-01] MEDS ORDERED: ACETAMINOPHEN 500 MG TAB PO PRN (14:21)
[2017-04-01] MEDS ORDERED: ALBUTEROL 3 ML DEYVIAL IH PRN (14:21)
[2017-04-01] MEDS ORDERED: NALOXONE HCL 0.4 MG/ML INJ IVP PRN (14:21)
--- NOTE | 2017-04-01 14:22 | POSTANESTH ---
Post Anesthetic Evaluation Cardiovascular Status: Tx Hyper/Hypo-tension (decreased BP, improving as sedation wears off) Respiratory Status: Normal, Stable Level of Consciousness/Mental Status: Can Participate in Eval, Mildly Sleepy, Arousable Pain Control: Adequate, Prn Tx Ordered Nausea/Vomiting Control: Adequate, Prn Tx Ordered Complications Possibly Related to Anesthesia: None Noted
--- NOTE | 2017-04-01 14:51 | GCON ---
[f rep st] CONSULTATION DATE OF CONSULTATION: 04/01/2017 REFERRING PHYSICIAN: Wojciech Ledezma MD INDICATION FOR CONSULTATION: Recurrent anemia in a patient with a history of upper GI bleed recently. HISTORY OF PRESENT ILLNESS: The patient is a very pleasant 87-year-old female with a past medical history significant for hypertension, congestive heart failure, coronary artery disease, who also has a history of renal cell carcinoma , status post nephrectomy in 2017. She had a recent upper GI bleed, and endoscopy by my partner, Dr. Vega, which revealed diffuse gastritis and nonbleeding duodenal ulcer. She was discharged on pantoprazole 40 mg b.i.d., which was switched to lansoprazole 30 mg b.i.d. She continues on her Plavix, but stopped her aspirin. She does take her prednisone 10 mg b.i.d. She has been admitted for ongoing melanotic stools and increased dyspnea on exertion and weakness, which correlates with the decreased hemoglobin and hematocrit, and elevated BUN, although, BUN may be at her baseline. She is now admitted for the above, and I am called to help and evaluate in that regard. PAST MEDICAL HISTORY: Hypertension, coronary artery disease, congestive heart failure, renal cell carcinoma. Renal insufficiency, as she only has 1 kidney left. PAST SURGICAL HISTORY: Nephrectomy in April 2016. MEDICATIONS: At home include Plavix, metoprolol, prednisone 10 mg b.i.d. Aspirin has been held. She is on lansoprazole 30 mg b.i.d. Medications in hospital: Tylenol p.r.n., doxycycline 100 mg daily, Lopressor 25 mg b.i.d., Zofran p.r.n., Protonix 80 mg continuous drip, vitamin B12 complex , folic acid 1 daily, zolpidem, Ambien 5-10 mg p.o. q.h.s. p.r.n. ALLERGIES: Codeine and morphine give her nausea. SOCIAL HISTORY: Does not smoke. She drinks alcohol occasionally at holidays and for toasts. FAMILY HISTORY: Son had Hodgkin disease. Mother had lymphoma. No colon cancer to her knowledge. REVIEW OF SYSTEMS: Complete review of systems was performed and is negative other than noted in the HPI. PHYSICAL EXAM: GENERAL: Well developed, well nourished, no acute distress. VITAL SIGNS: Blood pressure 125/65, pulse 66, respirations 16, 95% on room air, temperature is 36.5. HEENT: Eyes anicteric. TIFFANI, EOMI. Mouth: No lesions. Moist membranes. NECK: Supple. Full range of motion. No JVD. BACK: No spine tenderness. No CVA tenderness. LUNGS: Clear. Cardiac S1, S2. Regular rate and rhythm. No murmurs, rubs or gallops appreciated. ABDOMEN: Bowel sounds are normal in pitch and frequency, soft, with minimal epigastric tenderness on deep palpation. No hepatosplenomegaly. No rebound. No guarding. EXTREMITIES: No cyanosis, clubbing, or edema. NEUROLOGIC: Cranial nerves intact. Nonfocal. SKIN: No stigmata of advanced liver disease. No rashes. LABORATORY DATA: From today, sodium 141, potassium 4.6, chloride 113, bicarb 22 , BUN 53, creatinine 1.8. WBC from yesterday 9.42, hemoglobin from today 7.7, hematocrit 23.2. On the , her hemoglobin was 9.4, on March 31 hemoglobin was 7.2. Her BUN on the 23 of March was 80, decreasing to 60 on the and 53 today. Her BUN/creatinine ratio earlier this year was from April 22, BUN is 32, and creatinine was 1.7. From April 12, the BUN is 34, and the creatinine was 1.1. Her creatinine has ranged from 1.1, 1.3, up to 2.1 yesterday, 1.8 today. EGD from March 23, 2017, normal esophagus, nonbleeding erosive gastropathy, 1 nonbleeding duodenal ulcer with no stigmata of recent bleed. Pathology from the antrum showed minimal superficial chronic gastritis. H pylori was negative. No intestinal metaplasia. No dysplasia. ASSESSMENT: 1. Decreased hemoglobin and hematocrit consistent with upper GI bleed with a mild elevation of BUN and creatinine ratio, although not as significant as March 23. 2. Renal insufficiency. 3. One kidney, status post nephrectomy for renal carcinoma. 4. Hypertension. 5. Coronary artery disease. 6. Long-term use of Plavix. Aspirin has been held. 7. Long-term use of steroids. RECOMMENDATIONS: 1. Continue PPI. 2. EGD for evaluation of presumed recurrent upper gastrointestinal bleed. 3. If there is no evidence of source of blood loss on the EGD, I would recommend a colonoscopy. If the colonoscopy is negative, then I recommend a capsule endoscopy. 4. She does complain of constipation. I would recommend MiraLAX once daily, after 3-4 days if desired response is not reached, she can increase to b.i.d., titrate to desired response. 5. MiraLAX, if not affective, can try milk of magnesia if okay with Nephrology. 6. If milk of magnesia is not effective, consider use of Amitiza, Linzess or Trulance. Further recommendations to follow results of EGD. Thank you for allowing me to participate in the patient's healthcare. Do not hesitate to call me with questions. /[id number]/MODL MTDD
--- NOTE | 2017-04-01 15:46 | POSTANESTH ---
Post Anesthetic Evaluation Cardiovascular Status: Normal, Stable Respiratory Status: Normal, Stable Level of Consciousness/Mental Status: Can Participate in Eval Pain Control: Adequate, Prn Tx Ordered Nausea/Vomiting Control: Adequate, Prn Tx Ordered Complications Possibly Related to Anesthesia: None Noted
[2017-04-01] MEDS ORDERED: BISACODYL 5 MG EC TAB PO ONE (17:15)
--- NOTE | 2017-04-01 17:22 | HOSPPROG ---
Hospitalist Progress Note Assessment/Plan: * Recurrent UGIB -d/w Dr. Nicholson - consider repeat EGD -holding Plavix, prednisone -continue PPI * Acute/chronic blood loss anemia -s/p transfusion * DU/gastric erosions * CAD/stent September 2016 - needs Plavix restarted prior to discharge * Bullous pemphigoid -needs prednisone restarted prior to discharge * Acute on chronic renal failure - baseline creatinine 1.5 Subjective: No new complaints. Objective: Vital Signs Temp Pulse Resp BP Pulse Ox 36.5 C 69 16 155/57 H 98 04/01/17 15:14 04/01/17 15:14 04/01/17 15:14 04/01/17 15:14 04/01/17 15:14 Laboratory Results 04/01/17 08:24 04/01/17 08:24 03/31/17 04/01/17 04/02/17 05:59 05:59 05:59 Intake Total 1100 500 Output Total 0 Balance 1100 500 EKG reviewed, my personal interpretation is - NSR with LBBB - Physical Exam Constitutional: no apparent distress, appears nourished, not in pain Cardiovascular: regular rate and rhythym, no murmur, rub, or gallop Respiratory: no respiratory distress, no rales or rhonchi, clear to auscultation Gastrointestinal: normoactive bowel sounds, soft, non-tender abdomen, no palpable masses Skin: no rashes or abrasions, no fluctuance, no induration Neurologic: AAOx3, sensation intact bilaterally Psychiatric: interacting appropriately, not anxious, not encephalopathic, thought process linear ICD10 Worksheet Patient Problems: Problems Problem Status Onset Anemia Acute Gastrointestinal bleeding, upper Acute Hyperkalemia Acute Renal insufficiency Acute Acute exacerbation of congestive heart failure Acute Chronic Disease Mgmt/Transitional Care Acute Dehydration Acute Elevated troponin I level Acute GI bleeding Acute Hematuria Acute Hydronephrosis Acute Hypoxia Acute Ileus Acute Renal mass, right Acute Worsening renal function Acute
[2017-04-01] MEDS ORDERED: PEG 3350/NA SULF,BICARB,CL/KCL (GAVILYTE-G) 4000 ML BTL PO ONE (18:00)
[2017-04-02] MEDS: PANTOPRAZOLE SODIUM 80 MG in NS 100 ML IV SCH (05:00)
[2017-04-02 05:28] LABS: PLATELET COUNT 233 10^3/uL (150-400)
[2017-04-02] MEDS: METOPROLOL TARTRATE 25 MG TAB PO SCH ×2 (08:19→21:11)
[2017-04-02] MEDS: DOXYCYCLINE HYCLATE 100 MG CAP/TAB PO SCH (08:20)
[2017-04-02] MEDS: NEPHROVITE FOLIC ACID/VIT B&C 1 TAB PO SCH (10:20)
[2017-04-02] MEDS: PANTOPRAZOLE SODIUM 40 MG TAB PO SCH ×2 (10:20→21:11)
--- NOTE | 2017-04-02 15:15 | PDANEPAE ---
ANE History of Present Illness anemia/melena , here for colonoscopy ANE Past Medical History - Cardiovascular History Hx Hypertension: Yes Hx Coronary Artery / Peripheral Vascular Disease: Yes Hx CHF / Valvular Disease: Yes Cardiovascular History Comment: s/p stent placement - Pulmonary History Hx COPD: No Hx Asthma/Reactive Airway Disease: No Hx Recent Upper Respiratory Infection: No Hx Oxygen in Use at Home: No Hx Sleep Apnea: No Sleep Apnea Screening Result - Last Documented: Negative - Endocrine History Hx Diabetes: No - Renal History Hx Renal Disorders: Yes Renal History Comment: hx of renal cancer, s/p nephrectomy - Cancer History Hx Cancer: Yes Cancer History Comment: renal cancer - Other Health History Other Health History: Bullous pemphygoid - Chronic Pain History Chronic Pain: No - Surgical History Prior Surgeries: YADI, cholecystectomy, appendectomy, R nephrectomy ANE Review of Systems Review of Systems: - Exercise capacity METS (RN): 3 METS ANE Patient History - Allergies Allergies/Adverse Reactions: codeine Allergy (Mild, Verified 03/31/17 18:52) GI MORPHINE Allergy (Unknown, Uncoded 03/22/17 11:58) - Home Medications Home Medications: Clopidogrel Bisulfate [Plavix] 75 mg PO DAILY 03/31/17 [Last Taken 03/31/17] Doxycycline Hyclate [Vibramycin 100 MG (*)] 100 mg PO DAILY 03/31/17 [Last Taken 03/31/17] Lansoprazole [Prevacid] 15 mg PO BID 03/31/17 [Last Taken 03/31/17] Metoprolol Tartrate [Lopressor 25 mg (*)] 25 mg PO BID 03/31/17 [Last Taken ] Renal Vitamin Tablet 1 tab PO DAILY 03/31/17 [Last Taken 03/31/17] Torsemide 5 mg PO DAILY 03/31/17 [Last Taken 03/31/17] predniSONE [Prednisone] 10 mg PO BID 03/31/17 [Last Taken 03/31/17] - NPO status NPO Since - Liquids (Date): 04/01/17 NPO Since - Liquids (Time): 20:00 NPO Since - Solids (Date): 03/31/17 NPO Since - Solids (Time): 18:00 - Anes Hx Anes Hx: no prior problems - Smoking Hx Smoking Status: Never smoked - Alcohol Use Alcohol Use: None - Family Anes Hx Family Anes Hx: none ANE Labs/Vital Signs - Labs Result Diagrams: 04/02/17 05:07 04/02/17 05:07 - Vital Signs Blood Pressure: 125/62 Heart Rate: 68 Respiratory Rate: 16 O2 Sat (%): 94 Height: 162.56 cm Weight: 70.307 kg ANE Physical Exam - Airway Neck exam: FROM Mallampati Score: Class 2 Mouth exam: normal dental/mouth exam - Pulmonary Pulmonary: no respiratory distress, clear to auscultation - Cardiovascular Cardiovascular: regular rate and rhythym, no murmur, rub, or gallop - ASA Status ASA Status: III ANE Anesthesia Plan Anesthesia Plan: GA with mask Total IV Anesthesia: Yes
[2017-04-02] MEDS ORDERED: NALOXONE HCL 0.4 MG/ML INJ IVP PRN (15:16)
[2017-04-02] MEDS ORDERED: PROPOFOL/EMULSION 500 MG/50 ML BOTTLE IV ONE (15:18)
--- NOTE | 2017-04-02 15:46 | POSTOPPROG ---
Post Op Note Date of Operation: 04/02/17 Surgeon: Christopher Nicholson Anesthesia: Other (Specify) (IV general) Pre-op Diagnosis: anemia Post-op Diagnosis: small 4-5 mm polyps in ascedning and transverse colon removed with cold sna Indication: anemia, essentilly neg EGD Procedure: colon with snare polypectomy Findings: 4-5 mm semisessile polyp in distal ascending and one in mid transverse colo Inf/Abcess present in the surg proc area at time of surgery?: No EBL: Minimal (few ml from cold snare) Total fluids administered: 300ml LR Complications: none immediate
--- NOTE | 2017-04-02 15:51 | GIREPORT ---
[facility] Surgical Services - Endoscopy Department Patient Name: Marika Anton Procedure Date: 04/02/2017 3:12 PM Patient Type: Inpatient Attending MD/ ER Physician: Ivone Kc Procedure: Colonoscopy Indications: Iron deficiency anemia secondary to chronic blood loss Providers: Dion Nicholson MD Medicines: Total IV Anesthesia (TIVA) = IV general Complications: No immediate complications. Estimated blood loss: Minimal. Description of Procedure: After obtaining informed consent, the scope was passed under direct vis ion. Throughout the procedure, the patient's blood pressure, pulse, and oxyg en saturations were monitored continuously. The Colonoscope with irrigatio n channel was introduced through the anus and advanced to the terminal il eum, with identification of the appendiceal orifice and IC valve. The colono scopy was performed without difficulty. The patient tolerated the procedure w ell. The quality of the bowel preparation was good. Findings: The digital rectal exam was normal. The terminal ileum appeared normal. A 5 mm polyp was found in the distal ascending colon. The polyp was semi-sessile. The polyp was removed with a cold snare. Resection and retrieval were complete. Estimated blood loss was minimal. A 4 mm polyp was found in the mid transverse colon. The polyp was semi-sessile. The polyp was removed with a cold snare. Resection and retrieval were complete. Estimated blood loss was minimal. Non-bleeding hemorrhoids were found during retroflexion. The hemorrhoid s were moderate. The exam was otherwise without abnormality. Estimated Blood Loss: Estimated blood loss was minimal. Post Op Diagnosis: - The examined portion of the ileum was normal. - One 5 mm polyp in the distal ascending colon, removed with a cold sna re. Resected and retrieved. - One 4 mm polyp in the mid transverse colon, removed with a cold snare . Resected and retrieved. - Non-bleeding hemorrhoids. - The examination was otherwise normal. Recommendation: - Await pathology results. - My office will call with the pathology result with 5-7 days. If you h ave not heard from my office by 14, do not assume the pathology is radha l, please call [phone] to get the pathology results. - No repeat colonoscopy due to age. - Resume regular diet. - Possible d/c home tomorrow - To visualize the small bowel, perform video capsule endoscopy at appointment to be scheduled. Will be as outpatient. - [facility]. - Thank you for allowing me to help in your patient's care. Do not hesi ngo to call with any questions. Attending Participation: I personally performed the entire procedure. Lyn Ashley M.D Dion Nicholson MD 04/02/2017 3:50:07 PM This report has been signed electronicallyMathew MD Lyn Number of Addenda: 0 Note Initiated On: 04/02/2017 3:12 PM Total Procedure Duration Time 0 hours 16 minutes 21 seconds [email or web address]
--- NOTE | 2017-04-02 15:51 | SOAPPROG ---
SOAP Progress Note Assessment/Plan: Assessment:Plan: full dictated consult to follow seen earlier today recurrent anemia with mild bump in BUN/Cr will need repeat EGD and if negative then colonoscopy +/- capsule endoscopy 04/01/17 12:46 04/02/17 15:50 see full colonoscopy report two small polyps - not the cause of anemia - removed rec outpt capsule endoscopy of her small bowel advance diet maybe home in am Objective: Vital Signs Temp Pulse Resp BP Pulse Ox 36.6 C 68 16 125/62 H 94 04/02/17 11:25 04/02/17 15:15 04/02/17 15:15 04/02/17 15:15 04/02/17 15:15 Laboratory Results 04/02/17 05:07 04/02/17 05:07 04/01/17 04/02/17 04/03/17 05:59 05:59 05:59 Intake Total 1100 1000 Output Total 0 Balance 1100 1000 ICD10 Worksheet Patient Problems: Problems Problem Status Onset Anemia Acute Gastrointestinal bleeding, upper Acute Hyperkalemia Acute Renal insufficiency Acute Acute exacerbation of congestive heart failure Acute Chronic Disease Mgmt/Transitional Care Acute Dehydration Acute Elevated troponin I level Acute GI bleeding Acute Hematuria Acute Hydronephrosis Acute Hypoxia Acute Ileus Acute Renal mass, right Acute Worsening renal function Acute
--- NOTE | 2017-04-02 15:55 | POSTANESTH ---
Post Anesthetic Evaluation Cardiovascular Status: Normal, Stable, Similar to Pre-Op Cond Respiratory Status: Normal, Stable, Similar to Pre-op Cond. Level of Consciousness/Mental Status: Can Participate in Eval, Alert and Oriented Pain Control: Adequate, Prn Tx Ordered Nausea/Vomiting Control: Adequate, Prn Tx Ordered Complications Possibly Related to Anesthesia: None Noted
--- NOTE | 2017-04-02 16:19 | HOSPPROG ---
Hospitalist Progress Note Assessment/Plan: * Recurrent UGIB -repeat EGD/colonoscopy without source of bleeding -outpatient SB capsule endoscopy -restart Plavix and prednisone - these are essential meds -continue PPI -monitor H/H - possible home if stable * Acute/chronic blood loss anemia -s/p transfusion * DU/gastric erosions - healing nicely on EGD * CAD/stent September 2016 - needs Plavix restarted * Bullous pemphigoid -needs prednisone restarted * Acute on chronic renal failure - baseline creatinine 1.5 -holding diuretic Subjective: no new complaints. Objective: Vital Signs Temp Pulse Resp BP Pulse Ox 37.0 C 97 20 149/57 H 98 04/02/17 15:44 04/02/17 15:44 04/02/17 16:05 04/02/17 16:05 04/02/17 16:05 Laboratory Results 04/02/17 05:07 04/02/17 05:07 04/01/17 04/02/17 04/03/17 05:59 05:59 05:59 Intake Total 1100 1000 Output Total 0 Balance 1100 1000 - Physical Exam Constitutional: no apparent distress, appears nourished, not in pain Cardiovascular: regular rate and rhythym, no murmur, rub, or gallop Respiratory: no respiratory distress, no rales or rhonchi, clear to auscultation Gastrointestinal: normoactive bowel sounds, soft, non-tender abdomen, no palpable masses Skin: no rashes or abrasions, no fluctuance, no induration Neurologic: AAOx3, sensation intact bilaterally Psychiatric: interacting appropriately, not anxious, not encephalopathic, thought process linear ICD10 Worksheet Patient Problems: Problems Problem Status Onset Anemia Acute Gastrointestinal bleeding, upper Acute Hyperkalemia Acute Renal insufficiency Acute Acute exacerbation of congestive heart failure Acute Chronic Disease Mgmt/Transitional Care Acute Dehydration Acute Elevated troponin I level Acute GI bleeding Acute Hematuria Acute Hydronephrosis Acute Hypoxia Acute Ileus Acute Renal mass, right Acute Worsening renal function Acute
[2017-04-02] MEDS: CLOPIDOGREL BISULFATE 75 MG TAB PO SCH (17:35)
[2017-04-02] MEDS: predniSONE 10 MG TAB PO SCH (21:11)
[2017-04-03 07:57] VITALS: BP 143/72; PULSE 96; RESP 18; TEMP 97; O2SAT 95
[2017-04-03] MEDS: METOPROLOL TARTRATE 25 MG TAB PO SCH (08:26)
[2017-04-03] MEDS: CLOPIDOGREL BISULFATE 75 MG TAB PO SCH (08:26)
[2017-04-03] MEDS: predniSONE 10 MG TAB PO SCH (08:27)
[2017-04-03] MEDS: PANTOPRAZOLE SODIUM 40 MG TAB PO SCH (08:27)
[2017-04-03] MEDS: DOXYCYCLINE HYCLATE 100 MG CAP/TAB PO SCH (08:27)
[2017-04-03] MEDS: NEPHROVITE FOLIC ACID/VIT B&C 1 TAB PO SCH (08:27)
--- NOTE | 2017-04-03 09:12 | PDDCSUM ---
Discharge Summary Discharge Summary: DISCHARGE DIAGNOSES: -symptomatic anemia requiring transfusion of blood cells -recurrent upper GI bleed after recent bleeding from duodenal ulcer and get erosive gastritis -ongoing use of Plavix due to recent coronary stenting -ongoing use of steroid for bullous pemphigoid -colon polyps identified and removed on colonoscopy -coronary disease status post stenting 6 months ago -bullous pemphigoid on steroids for that CONSULTANTS: Dr. Christopher Lane PROCEDURES: Colonoscopy and EGD with biopsies of the upper tract and removal of 2 colonic polyps Transfusion of packed red blood cells 1 U HOSPITAL COURSE SUMMARY: This patient had just been here about a week prior to this admission with upper GI bleed and was found to have duodenal ulcer and erosive gastritis. She was started on proton pump inhibitor therapy and did well with discharge with a hemoglobin of 9. She does have a history of coronary disease with stents about half a year ago as well as history of bolus pemphigoid on steroid. She was taken off of aspirin for continued on Plavix and steroid. She was on twice daily proton pump inhibitor at discharge. She comes in at this time with severe fatigue and weakness is found to have hemoglobin dropped from 9-7 along with several days of melenic stools prior to this admission. There is no abdominal pain. There is no nausea or vomiting. Her Plavix and steroid were discontinued at the time of admission. The patient received packed red blood cell transfusion which improved her symptoms significantly. She was continued on twice daily proton pump inhibitors and did not have any evidence of further bleeding. Colonoscopy had 2 polyps which were removed for pathology but there was no sign of any bleeding or lesions that would expected bleed. The upper endoscopy showed gastritis and duodenitis with partial healing of ulcer. It was unclear if her bleeding was from her esophagitis and gastritis and ulcer , whether there could be another lesion. It was recommended that she have follow-up outpatient capsule endoscopy. As she remained stable here was felt safe to resume her Plavix and steroid medicine. PENDING TEST RESULTS: Pathology from 2 polyps of the colon MEDICATION CHANGES: None She is aware that she must continue her proton pump inhibitor therapy for 8 weeks FOLLOW-UP PLAN: [facility] for capsule endoscopy and follow-up blood counts Greater than 35 minutes bedside and care coordination time today
--- NOTE | 2017-04-03 14:07 | ASDISCHSUM ---
Discharge Information Plan Status:Home with Home Health Medically Cleared to Leave:04/02/2017 Discharge Date:04/03/2017 11:07 AM CM D/C Disposition: ADT D/C Disposition:Home, Routine, Self-Care Projected Discharge Date:04/03/2017 11:00 AM Transportation at D/C: Discharge Delay Reason: Follow-Up Date:04/03/2017 11:00 AM Discharge Slot: Final Diagnosis: Placement Information Referral Type:*Home Health Care Services Referral ID:[id number] Provider Name:[facility] Address 1:[address] [facility] [address] Address 2: City:[place] Selection Factors: State:[place] Patient Contact Information Contact Name:SOCORRO Relationship: Address:[address] Work Phone: City:[place] Alternate Phone: State/Zip Code:[place] [address] Email: Financial Information Financial Class: Primary Plan Desc:MEDICARE INPATIENT Primary Plan Number:[id number] Secondary Plan Desc:[employer]/MDR SUPPLEMENT Secondary Plan Number:[id number] Assessment Information [facility] CM Progress Note CM Note CM Note Notes: Pt is an 87-year-old woman admitted due to lower GI bleeding. Hx. CAD, stent, renal cancer. Pt. moved to [place] to be close to her son. Formerly lived in [place]. Pt. lives w/ her at the [facility]. Pt.'s last d/c from [facility] was on 03/24/17 and she went home independently at that time. Await OT consult to assist in d/c planning. CM to follow. Date Signed: 04/01/2017 11:29 AM Electronically Signed By:Maria Elena Escalona LCSW Case Management Discharge Plan Note Case Management Discharge Discharge Order Complete? Answers: Yes Patient to Obtain Answers: Independently Medications Transportation Arranged Answers: Family/Friends Transport will Pick (Date 04/03/2017 11:30 AM & Time) EMTALA Complete Answers: No Case Management Transport Answers: No Form Complete Faxed Final Orders Answers: Yes Agency/Facility Transfer Answers: Yes Report Printed & Faxed to Receiving Agency Family Notified Answers: Yes Discharge Comments Notes: CM met w/ pt for dispo planning. Pt is requesting for JAMAR RN to monitor the bleeding. Pt also requested resources for a wheelchair. Pt reports that her bed room is a bit of some distance to the dining room. CM spoke w/ Dr. Ledezma regarding d/c POC. Pt is agreeable to [facility]. Referral made to [facility] and they are able to accept. CM available for changes. Plan: [facility] BARRIENTOS Date Signed: 04/03/2017 09:57 AM Electronically Signed By:ROSALIND Kumari Intervention Information Intervention Type:*IM-Signed Date of Service:04/03/2017 10:46 AM Patient Type:Inpatient Staff Member:Manjula Mariee Hours: Discipline: Severity: Comment:
--- NOTE | 2017-04-03 16:26 | PDIAF ---
- Diagnosis Diagnosis: upper gi bleed/ symptomatic anemia Code Status: Full Code - Medication Management Discharge Medications: Medications to Continue on Transfer Clopidogrel Bisulfate [Plavix] 75 mg PO DAILY 03/31/17 [Last Taken 03/31/17] Doxycycline Hyclate [Vibramycin 100 MG (*)] 100 mg PO DAILY 03/31/17 [Last Taken 03/31/17] Metoprolol Tartrate [Lopressor 25 mg (*)] 25 mg PO BID 03/31/17 [Last Taken ] Renal Vitamin Tablet 1 tab PO DAILY 03/31/17 [Last Taken 03/31/17] Torsemide 5 mg PO DAILY 03/31/17 [Last Taken 03/31/17] predniSONE [Prednisone] 10 mg PO BID 03/31/17 [Last Taken 03/31/17] Pantoprazole Sodium [Protonix 40mg (*)] 40 mg PO BID tab 04/03/17 [Last Taken Unknown] Discharge Medications: Refer to the Discharge Home Medication list for PRN reason. - Orders Services needed: Home Care, Registered Nurse Home Care Face to Face: I certify that this patient was under my care and that I had the required [id number] encounter meeting the encounter requirements on the discharge day. My findings support the fact that the patient is homebound as defined in Home Care Face to Face Continued: CMS Chapter 7 Medicare Benefits Manual 30.1.1 , The condition of the patient is such that there exists a normal inability to leave home and consequently, leaving home would require a considerable and taxing effort. Isolation Type: None Diet Recommendation: no restrictions on diet Diet Texture: Regular Texture Diet - Follow Up Care Current Providers and Referrals: Christopher Nicholson MD [Medical Doctor] - Naomi Tyler MD [Primary Care Provider] - As per Instructions
--- NOTE | 2017-04-04 10:49 | ASMTCMCOM ---
CM Note CM Note Notes: CM notified by [facility] that pt is current w/ [facility]. CM faxed d/c orders to [facility]. CM available for changes. Plan: MAHIN [place] Date Signed: 04/04/2017 10:49 AM Electronically Signed By:ROSALIND Kumari
== END 2017-04-03 11:07 | disposition home health service (06) | DRG 378 ==
LOC: F3E 21:42
PROVIDERS: ADMIT Internal Medicine; ATTEND Internal Medicine
PROC: 0DB98ZX Excision of Duodenum, Via Natural or Artificial Opening Endoscopic, Diagnostic (ICD-10-PCS; principal; 2017-04-01 14:00)
PROC: 0DBK8ZX Excision of Ascending Colon, Via Natural or Artificial Opening Endoscopic, Diagnostic (ICD-10-PCS; 2017-04-02)
PROC: 0DBL8ZX Excision of Transverse Colon, Via Natural or Artificial Opening Endoscopic, Diagnostic (ICD-10-PCS; 2017-04-02)
DX: K92.2 Gastrointestinal hemorrhage, unspecified (principal); D62 Acute posthemorrhagic anemia; D50.0 Iron deficiency anemia secondary to blood loss (chronic); D12.2 Benign neoplasm of ascending colon; D12.3 Benign neoplasm of transverse colon; K29.70 Gastritis, unspecified, without bleeding; K26.9 Duodenal ulcer, unspecified as acute or chronic, without hemorrhage or perforation; E87.5 Hyperkalemia; K64.9 Unspecified hemorrhoids; N17.9 Acute kidney failure, unspecified; L12.0 Bullous pemphigoid; I12.9 Hypertensive chronic kidney disease with stage 1 through stage 4 chronic kidney disease, or unspecified chronic kidney disease; I50.32 Chronic diastolic (congestive) heart failure; N18.9 Chronic kidney disease, unspecified; M10.9 Gout, unspecified; Z85.528 Personal history of other malignant neoplasm of kidney; Z90.5 Acquired absence of kidney; Z79.52 Long term (current) use of systemic steroids; Z95.5 Presence of coronary angioplasty implant and graft; Z66 Do not resuscitate
CPT/HCPCS: 96374; 97161-GP; 97165-GO; 97535-GO; G8978-GP-CI; G8979-GP-CI; G8980-GP-CI; G8987-GO-CI; G8988-GO-CI; J2001; J2704; J7512; P9016

== ENCOUNTER → 2017-05-12 | Outpatient (CLI) | payer OTHER, MEDICARE | LOC: FIMAGING 11:22 | PROVIDERS: ATTEND Family Medicine | DX: R60.0 Localized edema (principal) ==

== ENCOUNTER → 2017-05-24 | Outpatient (CLI) | payer OTHER, MEDICARE | LOC: FIMAGING 14:11 | PROVIDERS: ATTEND Internal Medicine Nephrology | DX: N18.3 Chronic kidney disease, stage 3 (moderate) (principal) ==

== ENCOUNTER 2017-06-06 15:16 | Emergency (ER) | payer OTHER, MEDICARE ==
--- NOTE | 2017-06-06 15:29 | EDPHY ---
H & P Time Seen by Provider: 06/06/17 15:17 HPI/ROS: CHIEF COMPLAINT: Fluid retention HISTORY OF PRESENT ILLNESS: The patient is an 86 y/o female arriving via EMS from her independent living facility after staff "forced me to come here" by staff due to weight gain over the last 48 hours. Her medical history includes chronic kidney disease, CAD, diastolic heart failure, hypertension, GI bleed, chronic prednisone use, and renal cell carcinoma post right nephrectomy one year ago. She is on a diuretic (torsemide) and has been tracking her weight daily for the last 6 weeks: on 04/26 she was 159.4lbs and this decreased through 05/28 to a low of 150.1lbs. On 06/02 it was 154.3lbs and on 06/04, 2 days ago, it was 167lbs. She has noticed some decrease in urination. She is slightly fatigued , but states this is not abnormal for her and she denies any acute complaints. She is eating and drinking normally. She denies dyspnea, chest pain, vomiting, diarrhea, abdominal pain, fever. REVIEW OF SYSTEMS: A 10 point review of systems was performed and is negative with the exception of the elements mentioned in the history of present illness. Past medical history: 1. Renal cell carcinoma status post right nephrectomy Apr 2016 2. CKD, baseline creatinine 1.5 3. CAD with stents placed September 2016 4. Chronic diastolic heart failure 5. Gout 6. Hypertension 7. Post herpetic neuralgia; shingles 2002 8. Bullous pemphigoid - chronic prednisone 9. Upper GI bleed with anemia; duodenal ulcer and erosive gastritis; while on Plavix Past surgical history: 1. Right nephrectomy 2016. 2. Cholecystectomy 3. Hysterectomy and prior ovary resection for cyst 4. Left tib/fib fracture with ORIF - 1989 5. Appendectomy 6. Tonsillectomy 7. Colon polyp removal Prior medical records reviewed including admission 03/31/17 for fatigue and melena. Family history: Noncontributory Social history: Lives in independent living at [facility]. Walks with cane. Son at bedside. PCP: Naomi Perez, Process Control Supervisor: Dr. Patricio Adult Physical: General Appearance: Alert, no acute distress. Blood pressure 175/95 on arrival. Eyes: Pupils equal and round, no conjunctival injection, no discharge. ENT, Mouth: Mucous membranes are moist, no oropharyngeal erythema or edema. Neck: No lymphadenopathy, supple. Respiratory: Lungs are clear to auscultation; no wheezes, rales, or rhonchi. Cardiovascular: Regular rate and rhythm; no murmur, rub, or gallop. Gastrointestinal: Abdomen is soft and non tender, no masses or organomegaly. Skin: Warm and dry, no rashes, normal color. Skin is fragile with scattered bruising over all 4 extremities. Back: Nontender to palpation over the thoracolumbar spine. Extremities: 1+ pedal edema bilaterally with chronic venous stasis changes; no calf tenderness or swelling. Neurological: Alert and oriented. Moving all four extremities easily and equally. Psychiatric: Normal affect. Constitutional: Initial Vital Signs Temperature (C) 36.8 C 06/06/17 15:23 Heart Rate 82 06/06/17 15:23 Respiratory Rate 18 06/06/17 15:23 Blood Pressure 175/95 H 06/06/17 15:23 O2 Sat (%) 98 06/06/17 15:23 O2 Delivery Mode Room Air Allergies/Adverse Reactions: codeine Allergy (Mild, Verified 03/31/17 18:52) GI codeine Allergy (Intermediate, Uncoded 06/06/17 15:20) MORPHINE Allergy (Unknown, Uncoded 03/22/17 11:58) Home Medications: Medication Instructions Recorded Clopidogrel Bisulfate [Plavix] 75 mg PO DAILY 03/31/17 Doxycycline Hyclate [Vibramycin 100 mg PO DAILY 03/31/17 100 MG (*)] Metoprolol Tartrate [Lopressor 25 25 mg PO BID 03/31/17 mg (*)] Renal Vitamin Tablet 1 tab PO DAILY 03/31/17 Torsemide 5 mg PO DAILY 03/31/17 predniSONE [Prednisone] 10 mg PO BID 03/31/17 Pantoprazole Sodium [Protonix 40mg 40 mg PO BID tab 04/03/17 (*)] Aspirin 06/06/17 Medical Decision Making - Diagnostics Imaging Results: Imaging Impressions Chest X-Ray 06/06/17 15:45 Impression: Negative for acute cardiopulmonary abnormality. Chronic findings, as above.. Imaging: I viewed and interpreted images myself ED Course/Re-evaluation: This is a well-appearing 87 y/o female with diastolic heart failure, CKD, and status-post nephrectomy who presents with a self-reported 13lbs weight gain over the last 5 days. She is mildly fatigued, but otherwise asymptomatic. She has 1+ pedal edema bilaterally and clear lungs on auscultation. She does not appear to be in gretchen heart failure. She is compliant with her medications, including her diuretic, torsemide. Plan for IV, labs, chest x-ray, nephrology consult. Chest x-ray: no infiltrate, no pulmonary edema, reviewed by me. BNP: 4060, BUN: 70, creatinine 2. This creatinine is in line with previous values. 1658: Consulted with Dr. 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 Recommends continuing medications as directed and following up with their office as an outpatient this week. I discussed this plan with the patient and she is happy to return home tonight. Return precautions discussed. She is comfortable with this plan. Repeat blood pressure 154/80. Differential Diagnosis: Considered a differential diagnosis that includes medication noncompliance, dietary indiscretion, worsening renal failure, heart failure. - Data Points Laboratory Results: Laboratory Results 06/06/17 15:50 06/06/17 15:50 06/06/17 06/06/17 15:50 15:50 WBC 7.72 10^3/uL 10^3/uL (3.80-9.50) RBC 3.81 10^6/uL L 10^6/uL (4.18-5.33) Hgb 12.3 g/dL L g/dL (12.6-16.3) Hct 37.6 % L % (38.0-47.0) MCV 98.7 fL fL (81.5-99.8) MCH 32.3 pg pg (27.9-34.1) MCHC 32.7 g/dL g/dL (32.4-36.7) RDW 17.1 % H % (11.5-15.2) Plt Count 201 10^3/uL 10^3/uL (150-400) MPV 9.6 fL fL (8.7-11.7) Neut % (Auto) 81.6 % H % (39.3-74.2) Lymph % (Auto) 14.0 % L % (15.0-45.0) [place] % (Auto) 3.9 % L % (4.5-13.0) Eos % (Auto) 0.1 % L % (0.6-7.6) Baso % (Auto) 0.1 % L % (0.3-1.7) Nucleat RBC Rel Count 0.0 % % (0.0-0.2) Absolute Neuts (auto) 6.30 10^3/uL 10^3/uL (1.70-6.50) Absolute Lymphs (auto) 1.08 10^3/uL 10^3/uL (1.00-3.00) Absolute Monos (auto) 0.30 10^3/uL 10^3/uL (0.30-0.80) Absolute Eos (auto) 0.01 10^3/uL L 10^3/uL (0.03-0.40) Absolute Basos (auto) 0.01 10^3/uL L 10^3/uL (0.02-0.10) Absolute Nucleated RBC 0.00 10^3/uL 10^3/uL (0-0.01) Immature Gran % 0.3 % % (0.0-1.1) Immature Gran # 0.02 10^3/uL 10^3/uL (0.00-0.10) Sodium 135 mEq/L mEq/L (135-145) Potassium 4.7 mEq/L mEq/L (3.5-5.2) Chloride 107 mEq/L mEq/L (97-110) Carbon Dioxide 16 mEq/l L mEq/l (22-31) Anion Gap 12 mEq/L mEq/L (8-16) BUN 70 mg/dL H mg/dL (7-23) Creatinine 2.0 mg/dL H mg/dL (0.6-1.0) Estimated GFR 24 Glucose 94 mg/dL mg/dL (70-100) Calcium 9.1 mg/dL mg/dL (8.5-10.4) NT-Pro-B Natriuret Pep 4060 pg/mL H pg/mL (0-450) Departure - Departure Disposition: Home, Routine, Self-Care Clinical Impression: Kidney disease with fluid retention Condition: Good Instructions: Edema (ED) Additional Instructions: Continue taking all your medications as prescribed. Continue measuring your weight once daily until directed otherwise by your doctor. Follow up with Dr. Patricio this week. Return to the ED for any worsening of condition. Referrals: Naomi Tyler MD [Primary Care Provider] - As per Instructions Jared Patricio MD [Medical Doctor] - As per Instructions Report Scribed for: Zenobia Castillo Report Scribed by: Norma Coates Date of Report: 06/06/17 Time of Report: 15:28 Physician Review and Approval Statement: 06/06/17 17:19 Portions of this note were transcribed by the medical geneticist. I, Dr. Zenobia Castillo, personally performed the history, physical exam, and medical decision- making; and confirmed the accuracy of the information in the transcribed note.
[2017-06-06 16:03] LABS: PLATELET COUNT 201 10^3/uL (150-400)
[2017-06-06 17:08] VITALS: BP 151/84
== END 2017-06-06 17:23 | disposition home or self-care (01) ==
LOC: EDUNIT#
DX: R60.9 Edema, unspecified (principal); N18.9 Chronic kidney disease, unspecified; I25.10 Atherosclerotic heart disease of native coronary artery without angina pectoris; I12.9 Hypertensive chronic kidney disease with stage 1 through stage 4 chronic kidney disease, or unspecified chronic kidney disease; Z85.528 Personal history of other malignant neoplasm of kidney; Z79.82 Long term (current) use of aspirin; Z95.5 Presence of coronary angioplasty implant and graft

== ENCOUNTER 2017-06-28 15:49 | Emergency (ER) | payer OTHER, MEDICARE ==
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
[2017-06-28] MEDS ORDERED: LIDOCAINE 2% JELLY 20 ML (UROJECT) UR ONE (16:11)
[2017-06-28] MEDS ORDERED: CEPHALEXIN 500 MG CAP PO ONE (16:36)
[2017-06-28 18:26] VITALS: BP 134/92
== END 2017-06-28 18:56 | disposition home or self-care (01) ==
LOC: EDUNIT#
PROC: 0HQCXZZ Repair Left Upper Arm Skin, External Approach (ICD-10-PCS; principal; 2017-06-28)
DX: S41.112A Laceration without foreign body of left upper arm, initial encounter (principal); S81.812A Laceration without foreign body, left lower leg, initial encounter; I11.0 Hypertensive heart disease with heart failure; I50.9 Heart failure, unspecified; I25.10 Atherosclerotic heart disease of native coronary artery without angina pectoris; Z85.528 Personal history of other malignant neoplasm of kidney; Z95.5 Presence of coronary angioplasty implant and graft; Z79.82 Long term (current) use of aspirin; W01.198A Fall on same level from slipping, tripping and stumbling with subsequent striking against other object, initial encounter; Y92.009 Unspecified place in unspecified non-institutional (private) residence as the place of occurrence of the external cause; Y99.8 Other external cause status; Y93.89 Activity, other specified

== ENCOUNTER 2017-07-02 14:32 | Emergency (ER) | payer OTHER, MEDICARE ==
--- NOTE | 2017-07-02 15:18 | EDPHY ---
H & P Stated Complaint: here for new dressing on LLE Time Seen by Provider: 07/02/17 15:04 HPI/ROS: CHIEF COMPLAINT: Requesting dressing change HISTORY OF PRESENT ILLNESS: The patient has a history of chronic stasis dermatitis and a skin tear to her left leg. The patient is currently under the care of the wound Care Clinic. She presents to the ED today after her gauze dressing slight down her ankle and exposed her skin tear and underlying dermatitis. The patient denies any acute complaints of fever. She denies any acute trauma, numbness or weakness. REVIEW OF SYSTEMS: A comprehensive 10 point review of systems is otherwise negative aside from elements mentioned in the history of present illness. Source: Patient Exam Limitations: No limitations - Medical/Surgical History Hx Asthma: No Hx Chronic Respiratory Disease: No Hx Diabetes: No Hx Cardiac Disease: Yes Hx Renal Disease: Yes Hx Cirrhosis: No Hx Alcoholism: No Hx HIV/AIDS: No Hx Splenectomy or Spleen Trauma: No Other PMH: appendectomy, 1 ovary removed, hysterectomy, cholecystectomy, shingles/ Htn. Renal cell cancer, nephrectomy 04/29, HTN. CHF, cardiac stents, gi bleed - Social History Smoking Status: Never smoked - Physical Exam Exam: General Appearance: Alert, no distress Eyes: Pupils equal and round no pallor or injection ENT, Mouth: Mucous membranes moist Respiratory: There are no retractions, lungs are clear to auscultation Cardiovascular: Regular rate and rhythm Gastrointestinal: Abdomen is soft and nontender, no masses, bowel sounds normal Neurological: 5/5 strength all 4 extremities Skin: Stasis dermatitis noted to the lower extremities Musculoskeletal: Normal range of motion Extremities: 2+ pitting edema Constitutional: Initial Vital Signs Temperature (C) 36.7 C 07/02/17 14:37 Heart Rate 83 07/02/17 14:37 Respiratory Rate 18 07/02/17 14:37 Blood Pressure 141/106 H 07/02/17 14:37 O2 Sat (%) 94 07/02/17 14:37 O2 Delivery Mode Room Air Allergies/Adverse Reactions: codeine Allergy (Mild, Verified 07/02/17 14:37) GI codeine Allergy (Intermediate, Uncoded 06/06/17 15:20) MORPHINE Allergy (Unknown, Uncoded 03/22/17 11:58) Home Medications: Medication Instructions Recorded Clopidogrel Bisulfate [Plavix] 75 mg PO DAILY 03/31/17 Doxycycline Hyclate [Vibramycin 100 mg PO DAILY 03/31/17 100 MG (*)] Metoprolol Tartrate [Lopressor 25 25 mg PO BID 03/31/17 mg (*)] Renal Vitamin Tablet 1 tab PO DAILY 03/31/17 Torsemide 5 mg PO DAILY 03/31/17 predniSONE [Prednisone] 10 mg PO BID 03/31/17 Pantoprazole Sodium [Protonix 40mg 40 mg PO BID tab 04/03/17 (*)] Aspirin 06/06/17 Cephalexin [Keflex (*)] 500 mg PO TID #21 cap 06/28/17 Medical Decision Making ED Course/Re-evaluation: The patient presents to the ED requesting a dressing change. This was performed using Kerlix and Coban. The patient will be discharged from the emergency department and follow up with wound care as scheduled. Departure - Departure Disposition: Home, Routine, Self-Care Clinical Impression: Skin tear of lower leg without complication, Stasis dermatitis of both legs Condition: Good Instructions: Skin Tear (ED) Additional Instructions: Follow up with wound care as scheduled. Referrals: Naomi Tyler MD [Primary Care Provider] - As per Instructions
[2017-07-02 16:04] VITALS: BP 129/82
== END 2017-07-02 16:04 | disposition home or self-care (01) ==
DX: S81.812D Laceration without foreign body, left lower leg, subsequent encounter (principal); I87.2 Venous insufficiency (chronic) (peripheral); I11.0 Hypertensive heart disease with heart failure; I50.9 Heart failure, unspecified; Z79.82 Long term (current) use of aspirin; Z95.5 Presence of coronary angioplasty implant and graft; Z85.528 Personal history of other malignant neoplasm of kidney; X58.XXXD Exposure to other specified factors, subsequent encounter

== ENCOUNTER 2017-07-30 19:08 | Emergency (ER) | payer OTHER, MEDICARE ==
--- NOTE | 2017-07-30 19:55 | EDPHY ---
H & P Time Seen by Provider: 07/30/17 19:22 HPI/ROS: Chief complaint. Leg wound bleeding HPI. 87-year-old female presents emergency department with leg wound that had her dressing taken off today and started bleeding. She has chronic stasis dermatitis. She has had a skin tear that she has been being treated wound clinic for the last 5 weeks. It is healing. Today there was no trauma but removal of the bandage apparently precipitated bleeding. She was seen at Wound Care on Monday and they were encouraged that was healing well. Patient is on blood thinners. She has no other complaints. ROS Constitutional. no fever/chills, no weakness Eyes. no problems with vision ENT. no sore throat, no nasal drainage Cardiovascular. no chest pain Respiratory. no shortness of breath, no cough Abdominal. no abdominal pain, no nausea/vomiting, no diarrhea . no problems urinating MS. no calf pain/swelling, no neck/back pain, no joint pain Skin. Skin tear leg wound is bleeding Lymph. no swollen glands Neuro. no headache, no dizziness, no difficulty walking or with speech Past Medical/Surgical History: Past medical history hysterectomy, oophorectomy, cholecystectomy, hypertension, renal cell cancer, congestive heart failure, coronary artery disease with stents Social History: , nonsmoker, no alcohol Smoking Status: Never smoked Physical Exam: General Appearance: Alert well-developed female mild distress vitals are stable Eyes: Pupils equal and round no pallor or injection. ENT, Mouth: Mucous membranes are moist. Respiratory: There are no retractions, lungs are clear to auscultation. Cardiovascular: Regular rate and rhythm. Gastrointestinal: Abdomen is soft and nontender, no masses, bowel sounds normal. Neurological: Awake and alert, sensory and motor exams grossly normal. Skin: Healing multiple skin tears on the left anterior lateral streeter. No evidence for infection. Mild bleeding. Musculoskeletal: Neck is supple nontender. Extremities symmetrical, full range of motion. Psychiatric: Patient is oriented X 3, there is no agitation. Constitutional: Initial Vital Signs Temperature (C) 36.9 C 07/30/17 19:41 Heart Rate 101 H 07/30/17 19:41 Respiratory Rate 16 07/30/17 19:41 Blood Pressure 124/71 H 07/30/17 19:41 O2 Sat (%) 96 07/30/17 19:41 O2 Delivery Mode Room Air Allergies/Adverse Reactions: codeine Allergy (Mild, Verified 07/02/17 14:37) GI codeine Allergy (Intermediate, Uncoded 06/06/17 15:20) MORPHINE Allergy (Unknown, Uncoded 03/22/17 11:58) Home Medications: Medication Instructions Recorded Clopidogrel Bisulfate [Plavix] 75 mg PO DAILY 03/31/17 Doxycycline Hyclate [Vibramycin 100 mg PO DAILY 03/31/17 100 MG (*)] Metoprolol Tartrate [Lopressor 25 25 mg PO BID 03/31/17 mg (*)] Renal Vitamin Tablet 1 tab PO DAILY 03/31/17 Torsemide 5 mg PO DAILY 03/31/17 predniSONE [Prednisone] 10 mg PO BID 03/31/17 Pantoprazole Sodium [Protonix 40mg 40 mg PO BID tab 04/03/17 (*)] Aspirin 06/06/17 Cephalexin [Keflex (*)] 500 mg PO TID #21 cap 06/28/17 Medical Decision Making ED Course/Re-evaluation: Wound is cleaned and redressed. No evidence For infection. The patient, her son, and I discussed treatment plan including criteria for return importance of follow-up further evaluation. They expressed understanding and agreement. She has an appointment with wound care tomorrow. Differential Diagnosis: I considered cellulitis, arterial bleeding. This appears to be healing laceration with friable subcutaneous tissue and the patient is on Plavix. - Data Points Medications Given: Discontinued Medications Acetaminophen (Tylenol) 1,000 mg PO EDNOW ONE Stop: 07/30/17 20:18 Last Admin: 07/30/17 20:18 Dose: 1,000 mg Departure - Departure Disposition: Home, Routine, Self-Care Clinical Impression: Laceration Condition: Good Instructions: Laceration Without Closure (ED) Additional Instructions: Keep dressing on tonight. Return for worsening bleeding. Follow up with wound care tomorrow Referrals: Naomi Tyler MD [Primary Care Provider] - As per Instructions
[2017-07-30] MEDS ORDERED: ACETAMINOPHEN 500 MG TAB ONE (20:14)
[2017-07-30] MEDS ORDERED: ACETAMINOPHEN 500 MG TAB PO ONE (20:17)
[2017-07-30 20:41] VITALS: BP 140/72
== END 2017-07-30 20:56 | disposition home or self-care (01) ==
DX: S81.812D Laceration without foreign body, left lower leg, subsequent encounter (principal); I11.0 Hypertensive heart disease with heart failure; I50.9 Heart failure, unspecified; I25.10 Atherosclerotic heart disease of native coronary artery without angina pectoris; Z79.82 Long term (current) use of aspirin; Z85.528 Personal history of other malignant neoplasm of kidney; Z95.5 Presence of coronary angioplasty implant and graft; X58.XXXD Exposure to other specified factors, subsequent encounter

== ENCOUNTER 2017-11-19 15:27 | Inpatient (IN) | payer OTHER, MEDICARE ==
--- NOTE | 2017-11-19 15:40 | EDPHY ---
H & P Time Seen by Provider: 11/19/17 15:37 HPI/ROS: CHIEF COMPLAINT: Generalized weakness. HISTORY OF PRESENT ILLNESS: 87-year-old female presents by EMS from her living facility at the [facility], patient is enrolled in hospice there, presents emergency room with global generalized weakness. According to EMS she was on the toilet and could not get off the toilet and appeared confused. They brought her to the emergency room for evaluation. Patient really has no complaints but states she "feels awful" but can't explain otherwise. REVIEW OF SYSTEMS: Poor historian. Past Medical History: History of hypertension, renal cell carcinoma, CHF, coronary artery disease Past Surgical History: Multiple surgeries, cholecystectomy Social History: Lives at the [facility], Enrolled in Hospice. Family History: Noncontributory ROS REVIEW OF SYSTEMS: 10 Systems were reviewed and negative with the exception of the elements mentioned in the history of present illness. Exam Constitutional elderly, frail nontoxic no acute distress, triage nursing summary reviewed, vital signs reviewed, awake/alert. Eyes normal conjunctivae and sclera, EOMI, PERRLA. HENT normal inspection, atraumatic, dry mucus membranes, no epistaxis, neck supple/ no meningismus, no raccoon eyes. Respiratory clear to auscultation bilaterally, normal breath sounds, no respiratory distress, no wheezing. Cardiovascular rate normal, regular rhythm, no murmur, no edema, distal pulses normal. Gastrointestinal soft, non-tender, no rebound, no guarding, normal bowel sounds, no distension, no pulsatile mass. Genitourinary no CVA tenderness. Musculoskeletal no midline vertebral tenderness, full range of motion, no calf swelling, no tenderness of extremities, no meningismus, good pulses, neurovascularly intact. Skin extensive skin tears throughout her skin. Arms and legs. Neurologic awake, alert and oriented x 3, AAOx3, moves all 4 extremities equally, motor intact, sensory intact, CN II-XII intact, normal cerebellar, normal vision, normal speech. Psychiatric normal mood/affect. Heme/Lymph/Immune no lymphadenopathy. Differential Diagnosis: Includes but is not limited to in a particular order dehydration, electrolyte disturbance, infection, UTI, dehydration Medical Decision Making: Family at bedside including son and daughter in-law request medical evaluation for global weakness. I tried to clarify goals of care and they request that she be evaluated for generalized weakness. She is a DN R. She is enrolled in hospice. Will have case management me with them. Will also contact hospice. Re-evaluation: 1616: Long discussed with the patient as well as family at bedside. Clarify goals of care. No invasive or aggressive measures. Discussed with the patient she is fine with basic blood work and urinalysis and EKG. But does not want any further aggressive treatment. EKG interpretation by me on record in [employer] system. Impression time of EKG 16 15, sinus arrhythmia rate of 82, left bundle-branch block present. No evidence of acute ischemia. Given the combination of the patient globally being weak, skin tears extensively , low sodium, elevated creatinine I do feel that it is reasonable to admit her tonight. She lives independently at [facility]. I do not feel that she can go home at this time. She needs wound care, and PT OT evaluation. Spoke with hospitalist service Dr. Addison who agrees to admit. Source: Patient, EMS - Medical/Surgical History Hx Asthma: No Hx Chronic Respiratory Disease: No Hx Diabetes: No Hx Cardiac Disease: Yes Hx Renal Disease: Yes Hx Cirrhosis: No Hx Alcoholism: No Hx HIV/AIDS: No Hx Splenectomy or Spleen Trauma: No Other PMH: appendectomy, 1 ovary removed, hysterectomy, cholecystectomy, shingles/ Htn. Renal cell cancer, nephrectomy 04/29, HTN. CHF, cardiac stents, gi bleed - Social History Smoking Status: Never smoked Constitutional: Initial Vital Signs Temperature (C) 36.6 C 11/19/17 17:09 Heart Rate 77 11/19/17 17:09 Respiratory Rate 18 11/19/17 17:09 Blood Pressure 152/90 H 11/19/17 17:09 O2 Sat (%) 98 11/19/17 17:09 O2 Delivery Mode Room Air Allergies/Adverse Reactions: codeine Allergy (Mild, Verified 07/02/17 14:37) GI MORPHINE Allergy (Severe, Uncoded 11/19/17 18:53) Unknown Home Medications: Medication Instructions Recorded Bumetanide [Bumex (*)] 1 mg PO DAILY 11/19/17 Doxycycline Hyclate 100 mg PO HS 11/19/17 HYDROmorphone HCL [Dilaudid] 0.5 mg PO PRN PRN 11/19/17 Hydrocodone/APAP 5/325 [[place] 1 tab PO Q8HRS PRN 11/19/17 5/325 (*)] Loperamide HCl [Imodium 2 mg (*)] 2 mg PO PRN PRN 11/19/17 Metoprolol Tartrate [Lopressor 25 25 mg PO BID 11/19/17 mg (*)] Nitroglycerin [Nitrostat 0.4 mg 0.4 mg SL Q5M PRN 11/19/17 (*)] Ondansetron Odt [Zofran Odt 4 mg 4 mg PO Q8 PRN 11/19/17 (*)] Pantoprazole Sodium [Protonix 40mg 40 mg PO BID 11/19/17 (*)] Polyethylene Glycol 3350 [Miralax 17 gm PO DAILY 11/19/17 17 gm (*)] Prorenal 8mg Iron 1 tab PO DAILY 11/19/17 Psyllium Husk [Konsyl] 300 gm PO DAILY 11/19/17 QUEtiapine FUMARATE [Seroquel 50 50 mg PO BID 11/19/17 mg (*)] Sennosides [Senna Lax] 8.6 mg PO BID PRN 11/19/17 Torsemide 40 mg PO DAILY 11/19/17 hydrOXYzine HCL [hydrOXYzine HCL 25 mg PO Q8 PRN 11/19/17 (RX)] predniSONE 2.5 mg PO BIDMEAL 11/19/17 Medical Decision Making - Data Points Laboratory Results: Laboratory Results 11/19/17 16:00 11/20/17 05:35 Medications Given: Acetaminophen (Tylenol) 650 mg PO Q4HRS PRN PRN Reason: Pain, Mild/Fever, Can Take PO Stop: 05/18/18 19:33 Last Admin: 11/21/17 12:15 Dose: 650 mg Hydrocodone Bitart/Acetaminophen ([place] 5/325) 1 - 2 tab PO Q4HRS PRN PRN Reason: Pain, Moderate Able to Take PO Stop: 11/29/17 19:33 Last Admin: 11/22/17 10:16 Dose: 1 tab Doxycycline Hyclate (Doxycycline Hyclate) 100 mg PO HS AYESHA PRN Reason: Protocol Stop: 12/19/17 20:59 Last Admin: 11/22/17 20:23 Dose: 100 mg Enoxaparin Sodium (Lovenox) 30 mg SC DAILY [facility] Stop: 05/19/18 08:59 Last Admin: 11/22/17 10:32 Dose: 30 mg Metoprolol Tartrate (Lopressor) 25 mg PO BID AYESHA Stop: 05/18/18 20:59 Last Admin: 11/22/17 20:24 Dose: 25 mg Miscellaneous Medication (Prorenal 8mg Iron ) 1 tab PO DAILY AYESHA Stop: 05/19/18 08:59 Last Admin: 11/22/17 10:45 Dose: Not Given Pantoprazole Sodium (Protonix) 40 mg PO BID AYESHA Stop: 05/18/18 20:59 Last Admin: 11/22/17 20:24 Dose: 40 mg Polyethylene Glycol (Miralax) 17 gm PO DAILY AYESHA Stop: 05/19/18 08:59 Last Admin: 11/22/17 10:31 Dose: 17 gm Prednisone (Prednisone) 2.5 mg PO BIDMEAL AYESHA Stop: 05/19/18 07:59 Last Admin: 11/22/17 17:38 Dose: 2.5 mg Psyllium Hydrophilic Mucilloid (Metamucil/Konsyl) 1 each PO DAILY AYESHA Stop: 05/19/18 08:59 Last Admin: 11/22/17 14:39 Dose: 1 each Quetiapine Fumarate (Seroquel) 50 mg PO BID [facility] Stop: 05/18/18 20:59 Last Admin: 11/22/17 20:23 Dose: 50 mg Discontinued Medications Hydrocodone Bitart/Acetaminophen ([place] 5/325) 1 tab PO ONCE ONE Stop: 11/19/17 19:16 Last Admin: 11/19/17 20:08 Dose: 1 tab Bumetanide (Bumex) 1 mg PO DAILY [facility] Stop: 05/19/18 08:59 Last Admin: 11/22/17 09:19 Dose: 1 mg Sodium Chloride (Ns) 500 mls @ 1,000 mls/hr IV EDNOW ONE PRN Reason: Protocol Stop: 11/19/17 16:03 Last Admin: 11/19/17 18:17 Dose: 500 mls Sodium Chloride (Ns) 500 mls @ 0 mls/hr IV ONCE ONE PRN Reason: Wide Open Stop: 11/19/17 17:53 Last Admin: 11/19/17 18:21 Dose: 500 mls Torsemide (Demadex) 40 mg PO DAILY [facility] Stop: 05/19/18 08:59 Last Admin: 11/22/17 09:19 Dose: 40 mg Point of Care Test Results: Chemistry 11/19/17 16:39 POC Troponin I 0.14 ng/mL H ng/mL (0.00-0.08) Departure - Departure Disposition: [facility] Inpatient Acute Clinical Impression: Generalized weakness, Dehydration, Hyponatremia, REYNODL (acute kidney injury) Condition: Fair
[2017-11-19] MEDS: NS 500 ML IV ONE ×2 (16:07→18:17)
[2017-11-19 16:13] LABS: PLATELET COUNT 177 10^3/uL (150-400)
[2017-11-19] MEDS ORDERED: NS 500 ML IV ONE (17:52)
--- NOTE | 2017-11-19 18:57 | ASMTCMCOM ---
CM Note CM Note Notes: Pt presented to the ED via EMS for weakness and inability to stand. Pt coming from her [facility] Living apt at [facility] which she shares w/her , Kian. Pt and Kian are both patients of [facility]. Pt's son Leo, PAVITHRA Blackwood, and granddaughter and other family/friends arrived to the ED. Spoke w/ family about pt's recent increased weakness and inability to stand from the toilet. ED MD and CM spoke w/family and patient confirmed that they wanted to pursue assessment and agreed to labs, chest x-ray, and EKG being completed. Spoke w/ Nishi, parts expediter at [facility] ([phone]) and notified them of the ED assessment and treatment plan. Nishi [facility]ed over [facility], [facility], medication list, recent hospice visit notes and their revocation form. Pt admitted for dehydration, hyponatremia, REYNOLD, generalized weakness. Spoke w/[facility] and she mentioned they would be open to the idea of pt going to a SNF if she seems to still need a higher level of care. [facility] states pt has 24/7 care between [facility] assistance services and private duty homecare. [facility] says they have been trying to get pt on the waitlist at [facility]. Randa Davila will be coming to [facility] to have pt and family sign the revocation form. Exact DC needs unknown/TB. Anticipate pt DC home w/ resuming Hospice and other HC assistance, or DC to SNF w/Hospice. CM to follow. Date Signed: 11/19/2017 06:51 PM Electronically Signed By:Maria Elena Molina RN
--- NOTE | 2017-11-19 18:59 | ASMTLACE ---
SEGUNDOE Acuity / Level of Answers: No Care: Did the patient have an inpatient admission? Comorbidities - select Answers: Congestive heart failure all that apply Coronary Artery Disease Palliative care / End of life trajectory Other Notes: HTN, renal cell carcino ma # of Emergency department Answers: 5-8 visits in the last 6 months Score: 11 Date Signed: 11/19/2017 06:59 PM Electronically Signed By:Maria Elena Molina RN
[2017-11-19] MEDS ORDERED: HYDROCODONE/APAP 5/325 TAB PO ONE (19:15)
[2017-11-19] MEDS ORDERED: ONDANSETRON 4 MG/2 ML VIAL IVP PRN (19:34)
[2017-11-19] MEDS ORDERED: ONDANSETRON DISINTEGRATING 4 MG TAB PO PRN ×2 (19:34→19:35)
[2017-11-19] MEDS ORDERED: oxyCODONE IR 5 MG TAB PO PRN (19:34)
[2017-11-19] MEDS ORDERED: ACETAMINOPHEN 325 MG TAB PO PRN (19:34)
[2017-11-19] MEDS ORDERED: SENNOSIDES 1 TAB PO PRN (19:35)
[2017-11-19] MEDS ORDERED: LOPERAMIDE HCL 2 MG CAP PO PRN (19:35)
[2017-11-19] MEDS ORDERED: hydrOXYzine HCL 25 MG TAB PO PRN (19:35)
[2017-11-19] MEDS ORDERED: NITROGLYCERIN 0.4 MG BTL SL PRN (19:35)
[2017-11-19] MEDS ORDERED: HYDROmorphONE/DILAUDID 2 MG TAB PO PRN (20:00)
[2017-11-19] MEDS: DOXYCYCLINE HYCLATE 100 MG CAP/TAB PO SCH (20:08)
[2017-11-19] MEDS: PANTOPRAZOLE SODIUM 40 MG TAB PO SCH (20:08)
[2017-11-19] MEDS: METOPROLOL TARTRATE 25 MG TAB PO SCH (20:08)
[2017-11-19] MEDS: QUEtiapine FUMARATE 50 MG TAB PO SCH (20:08)
--- NOTE | 2017-11-19 21:40 | GHP ---
DATE OF ADMISSION: 11/19/2017 CHIEF COMPLAINT: Weakness. HISTORY: This is an 87-year-old female who has a past medical history that includes bullous pemphigo id on chronic prednisone, as well as chronic kidney disease and coronary artery disease, residing at [facility], and presenting with increasing weakness to the point where she is now no longer really able to walk on her own. The patient notes that she is under the care of [facility] at home, bu t she and her family have become concerned with her weakness and are wondering if there is anything t hat can be done about it. She is concerned that she is no longer safe to be at [facility] in her c urrent condition and wonders if she could benefit from being in a rehab facility. She otherwise has no real complaints. She notes that she has not been eating or drinking as well just simply due to he r weakness. She denies any changes in her urination. She denies any fevers or chills. She denies a ny cough. She denies any new pain other than her usual chronic pain. PAST MEDICAL HISTORY: Includes: 1. Chronic kidney disease with baseline creatinine most recently in the mid to low 2's. 2. History of renal cell carcinoma, status post nephrectomy. 3. Coronary artery disease. 4. Chronic diastolic heart failure. 5. Gout. 6. Hypertension. 7. Postherpetic neuralgia. 8. Bullous pemphigoid with chronic prednisone use. 9. Fragile skin with recurrent skin tears. SURGICAL HISTORY: Includes: 1. Ovarian cyst removal. 2. Nephrectomy. 3. Hysterectomy. 4. Tonsillectomy. 5. Appendectomy. 6. Cholecystectomy. 7. Cardiac stent. SOCIAL HISTORY: Patient is . She has 2 children. 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 She lives with her at [facility]. FAMILY HISTORY: She has a son who of Hodgkin lymphoma. Mother of non-Hodgkin's lymphoma. REVIEW OF SYSTEMS: A 10-point review of systems obtained, negative except as per HPI. MEDICATIONS: Include: 1. Prednisone. 2. Hydroxyzine. 3. Torsemide. 4. Senna. 5. Quetiapine. 6. Psyllium. 7. ProRenal. 8. Polyethylene glycol. 9. Pantoprazole. 10. Zofran. 11. Nitroglycerin. 12. Metoprolol. 13. Loperamide. 14. [place]. 15. Dilaudid. 16. Doxycycline. 17. Bumex. ALLERGIES: Include codeine and morphine. PHYSICAL EXAM: VITAL SIGNS: BP 127/75, heart rate 81, respiratory rate 18, O2 sats 96% on room air, temperature is 36.3. GENERAL APPEARANCE: This is an elderly female. She is awake and alert. She is in no acute distress. EYES: Anicteric. HENT: Oropharynx clear. CARDIOVASCULAR: Regular rate and rhythm, distant, no MRG. PULMONARY: CTA bilaterally. Normal work of breathing. ABDOMEN: Soft , nontender, nondistended. EXTREMITIES: No clubbing, cyanosis, or edema. SKIN: The patient has di ffuse ecchymoses covering all her extremities, her chest, her abdomen, she has multiple skin tears. No evidence of acute infectious process on skin that I examined. NEURO/PSYCH: Oriented and appropri ate. She is generally weak. CLINICAL DATA: Labs reviewed and notable for a sodium of 130, BUN of 77, creatinine of 2.6. Several months ago, they were 85 and 2.7. Glucose is 103. Liver function tests are remarkable only for an alkaline phosphatase of 131, a total protein of 5.0, and an albumin of 2.4. ProBNP is 5310. Troponi n is 0.14. Urinalysis is negative. Chest x-ray, personally reviewed and interpreted, shows clear lungs, no obvious infiltrate. EKG, personally reviewed and interpreted, shows sinus arrhythmia. There is a left bundle branch bloc k. When compared to prior, the left bundle branch block is stable. ASSESSMENT AND PLAN: This is an 87-year-old female with past medical history of chronic kidney disea se, coronary artery disease, and bullous pemphigoid with chronic prednisone use and issues with her s kin with multiple skin tears, presenting with a generalized weakness and failure to thrive. 1. Generalized weakness. The patient notes she is no longer able to ambulate and barely able to lif t her head up. This is likely multifactorial, but largest concern right now is just for generalized failure to thrive with complaints of weakness, poor p.o. intake, and noted to be dehydrated upon pres entation. PT/OT will be consulted. This is a little bit complicated as patient is on home hospice a nd could likely return to that level of care. However, she would like to make an effort to get stron marianela if this is possible, including being willing to go to rehab. This will need to be discussed furt her when patient's family is available and after patient has been evaluated by Physical Therapy. 2. Failure to thrive, as per above. It does sound as if the patient has been having a subacute decl ine. She does have multiple skin issues, she is not eating or drinking very well and is currently de hydrated. She notes her weakness is now so profound that she is really unable to walk independently. Again, she is on hospice at home but considering SNF. 3. Chronic kidney disease. This does seem to be at baseline. Has been progressive over the last 2 years. She does have underlying history of renal cell carcinoma, status post nephrectomy. 4. Elevated troponin without any complaints of chest pain or any new changes noted on EKG. Will lidia nd troponins overnight. Again, given that patient is on hospice, uncertain how aggressive she would like us to be. 5. Bullous pemphigoid on chronic prednisone. This will be continued. 6. Multiple skin tears. Patient has been seen by the wound care clinic. Her bilateral lower extrem ities are wrapped. She did experience a couple of new tears just in being transferred today. Wound Care will be consulted. I did not evaluate her backside for the presence of breakdown on her back. This will be performed in the morning when more assistance is available. 7. Chronic medical problems including chronic diastolic heart failure, gout, hypertension, postherpe tic neuralgia. No changes to her outpatient regimen. 8. Disposition: Observation status for now. 9. The patient is new to my care. Old records reviewed. Summarized as per HPI and past medical his tory. Care plan reviewed with ER physician including plans for observation overnight. /[id number]/MODL
[2017-11-20] MEDS: HYDROCODONE/APAP 5/325 TAB PO PRN ×2 (03:18→08:10)
[2017-11-20] MEDS: IRON PO SCH (07:58)
[2017-11-20] MEDS: PRORENAL PO SCH (07:58)
[2017-11-20] MEDS: PSYLLIUM METAMUCIL 1 PKT PO SCH (08:03)
[2017-11-20] MEDS: ENOXAPARIN 30 MG/0.3 ML SYR SC SCH (08:03)
[2017-11-20] MEDS: POLYETHYLENE GLYCOL 3350 17 GM PKT PO SCH (08:04)
[2017-11-20] MEDS: QUEtiapine FUMARATE 50 MG TAB PO SCH ×2 (08:04→20:15)
[2017-11-20] MEDS: PANTOPRAZOLE SODIUM 40 MG TAB PO SCH ×2 (08:04→20:14)
[2017-11-20] MEDS: METOPROLOL TARTRATE 25 MG TAB PO SCH ×2 (08:04→20:14)
[2017-11-20] MEDS: predniSONE 5 MG TAB PO SCH ×2 (08:04→17:09)
--- NOTE | 2017-11-20 09:35 | HOSPPROG ---
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 Of note she has been on hospice at home recently. I wonder if she has some steroid myopathy contributing to her weakness, I did discuss with her that her overall prognosis is poor as far as regaining significant strength to go back to her independent living. # diffuse weakness and failure to thrive, either due to deconditioning complicated by multiple medical issues or steroid myopathy. Heart seems seems less likely however she did has had elevated enzymes * PT and OT * Palliative care consult per patient request. She would like to go off of hospice in order to participate in rehab * No obvious cause on initial evaluation. # chronic renal failure with creatinine of 2.6 likely contributing to her weakness. She Has been followed by Nephrology in the past but has not been deemed a good dialysis candidate, she is status post nephrectomy due to renal cell carcinoma * Monitor creatinine # elevated troponins in the setting of coronary artery disease. Patient is asymptomatic with no significant changes. Will get echocardiogram to make sure that this is not contributing to her weakness, would not pursue any risk stratification other than that at this time. * Echocardiogram # bullous pemphigoid: On chronic prednisone. Currently she believe she is on 22 mg daily, this could be certainly contributing to steroid myopathy however would be unable to wean this off quickly if at all given her significant skin disease. * Patient does not improve with therapy and no other cause is found prognosis is likely fairly poor it would consider resuming hospice after rehab # multiple skin tears, will have wound care involved Disposition: Patient will need inpatient status as she will require additional midnight stay due to her multiple medical issues, age and acute decline in function that we are currently evaluating, such that she is unable to live independently. Subjective: Patient new to me and chart reviewed, she has no specific complaints and no pain she just feels weak all over. Objective: Vital Signs Temp Pulse Resp BP Pulse Ox 36.4 C 78 12 110/52 L 96 11/20/17 07:31 11/20/17 08:04 11/20/17 07:31 11/20/17 08:04 11/20/17 07:31 Laboratory Results 11/20/17 05:35 11/19/17 11/20/17 11/21/17 05:59 05:59 05:59 Intake Total 550 Output Total 75 Balance 475 PT Cancelled 11/19/17 16:00 INR Cancelled 11/19/17 16:00 - Physical Exam Constitutional: chronically ill appearing Eyes: PERRL Ears, Nose, Mouth, Throat: moist mucous membranes Cardiovascular: regular rate and rhythym Respiratory: no respiratory distress, clear to auscultation Gastrointestinal: soft, non-tender abdomen Genitourinary: no bladder fullness, gill in urethra Skin: other (Multiple skin tears and ecchymoses noted) Musculoskeletal: generalized weakness Neurologic: No facial droop Psychiatric: interacting appropriately ICD10 Worksheet Patient Problems: Problems Problem Status Onset GI bleeding Acute Anemia Acute Gastrointestinal bleeding, upper Acute Hyperkalemia Acute Renal insufficiency Acute Generalized weakness Acute Hyponatremia Acute REYNOLD (acute kidney injury) Acute Chronic Disease Mgmt/Transitional Care Acute Hydronephrosis Acute Renal mass, right Acute Hematuria Acute Dehydration Acute Worsening renal function Acute Ileus Acute Acute exacerbation of congestive heart failure Acute Elevated troponin I level Acute Hypoxia Acute
[2017-11-20] MEDS: TORSEMIDE 20 MG TAB PO SCH (09:40)
[2017-11-20] MEDS: BUMETANIDE 1 MG TAB PO SCH (09:40)
--- NOTE | 2017-11-20 10:39 | ASMTCMCOM ---
CM Note CM Note Notes: Pts case discussed w/ Dr. Reese and Brandi, PT. CM spoke to Maren at [facility]. Maren reports that she spoke w/ pts daughter in law Jade. Jade would like pt to return home to HC, [facility] and have palliative. Pts has hospice through [facility]. Brandi is recommending home w/ HC w/ private duty caregivers. Jade would like referral made to [facility]. Referral sent. CM to follow. Plan: [facility]; PT, OT, RN w/ private duty caregivers at [facility] Date Signed: 11/20/2017 10:37 AM Electronically Signed By:ROSALIND Kumari
--- NOTE | 2017-11-20 11:50 | PDMN ---
Medical Necessity Medical necessity: Change to IP, as of 11/20/17, per & EDYTA CG-GDC; los >2 mn for ongoing management of failure to thrive w/elevated troponins, multiple skin tears, diffuse weakness & severe 7/10 bilateral arm pain; requiring further monitoring, Wound Care/Palliative consults, pain management & therapies; comorbid advanced age, chronic renal failure, heart disease, bullous pemphigoid on chronic steroids
[2017-11-20] MEDS ORDERED: HYDROmorphONE/DILAUDID 2 MG TAB PO PRN (12:00)
[2017-11-20] MEDS: DOXYCYCLINE HYCLATE 100 MG CAP/TAB PO SCH (20:15)
[2017-11-21] MEDS: PANTOPRAZOLE SODIUM 40 MG TAB PO SCH ×2 (08:46→22:03)
[2017-11-21] MEDS: HYDROCODONE/APAP 5/325 TAB PO PRN ×2 (08:46→22:24)
[2017-11-21] MEDS: METOPROLOL TARTRATE 25 MG TAB PO SCH ×2 (08:46→22:03)
[2017-11-21] MEDS: TORSEMIDE 20 MG TAB PO SCH (08:46)
[2017-11-21] MEDS: QUEtiapine FUMARATE 50 MG TAB PO SCH ×2 (08:46→22:03)
[2017-11-21] MEDS: ENOXAPARIN 30 MG/0.3 ML SYR SC SCH ×2 (08:47→12:16)
[2017-11-21] MEDS: predniSONE 5 MG TAB PO SCH ×2 (08:47→17:07)
[2017-11-21] MEDS: BUMETANIDE 1 MG TAB PO SCH (08:47)
[2017-11-21] MEDS: IRON PO SCH (08:51)
[2017-11-21] MEDS: PRORENAL PO SCH (08:51)
[2017-11-21] MEDS: POLYETHYLENE GLYCOL 3350 17 GM PKT PO SCH (08:58)
[2017-11-21] MEDS: PSYLLIUM METAMUCIL 1 PKT PO SCH (08:58)
--- NOTE | 2017-11-21 08:58 | HOSPPROG ---
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 Of note she has been on hospice at home recently. I wonder if she has some steroid myopathy contributing to her weakness, her weakness tends to come and go, physical therapy noted that she was able to stand up with minimal assistance yesterday however she states some days is harder than others. # diffuse weakness and failure to thrive, either due to deconditioning complicated by multiple medical issues or steroid myopathy. Heart seems seems less likely however she did has had elevated enzymes * PT and OT * Palliative care consult per patient request. She would like to go off of hospice in order to participate in rehab * No obvious cause on initial evaluation. # chronic renal failure with creatinine of 2.6 likely contributing to her weakness. She Has been followed by Nephrology in the past but has not been deemed a good dialysis candidate, she is status post nephrectomy due to renal cell carcinoma * Monitor creatinine # elevated troponins in the setting of coronary artery disease. Patient is asymptomatic with no significant changes. Will get echocardiogram to make sure that this is not contributing to her weakness, would not pursue any risk stratification other than that at this time. * Echocardiogram pending awaiting results. # bullous pemphigoid: On chronic prednisone. Currently she believe she is on 22 mg daily, this could be certainly contributing to steroid myopathy however would be unable to wean this off quickly if at all given her significant skin disease. * Patient does not improve with therapy and no other cause is found prognosis is likely fairly poor it would consider resuming hospice after rehab # multiple skin tears, will have wound care involved Disposition: Patient will need inpatient status as she will require additional midnight stay due to her multiple medical issues, age and acute decline in function that we are currently evaluating, plan will be to continue physical therapy and supportive care here in the hospital if she is unable to return to her assisted living facility she is agreeable to going to skilled rehab post hospitalization. (pt later declined skilled rehab to the therapist.) Subjective: Feels weak this morning but ready to eat breakfast. No new complaints Objective: Vital Signs Temp Pulse Resp BP Pulse Ox 36.3 C 81 14 139/62 H 95 11/21/17 07:32 11/21/17 07:32 11/21/17 07:32 11/21/17 07:32 11/21/17 07:32 11/20/17 11/21/17 11/22/17 05:59 05:59 05:59 Intake Total 360 300 Output Total 400 300 Balance -40 0 PT Cancelled 11/19/17 16:00 INR Cancelled 11/19/17 16:00 - Physical Exam Constitutional: no apparent distress, chronically ill appearing Eyes: PERRL, EOMI Ears, Nose, Mouth, Throat: moist mucous membranes Cardiovascular: regular rate and rhythym Respiratory: no respiratory distress Gastrointestinal: soft, non-tender abdomen Genitourinary: no bladder fullness Skin: other (Multiple skin tears and ecchymoses throughout her body.) Musculoskeletal: generalized weakness Neurologic: other (Alert appropriate) Psychiatric: interacting appropriately ICD10 Worksheet Patient Problems: Problems Problem Status Onset GI bleeding Acute Anemia Acute Gastrointestinal bleeding, upper Acute Hyperkalemia Acute Renal insufficiency Acute Generalized weakness Acute Hyponatremia Acute REYNOLD (acute kidney injury) Acute Chronic Disease Mgmt/Transitional Care Acute Hydronephrosis Acute Renal mass, right Acute Hematuria Acute Dehydration Acute Worsening renal function Acute Ileus Acute Acute exacerbation of congestive heart failure Acute Elevated troponin I level Acute Hypoxia Acute
--- NOTE | 2017-11-21 12:31 | WOCRNPDOC ---
WOCRN Advanced Assessment Note - Skin Integrity Problem, Advanced Assess Right Upper Arm Dressing Type: Contact Layer, Gauze Dressing Description: Intact, Shadowed Exudate Amount: Minimal Exudate Characteristic(s): Serous Integumentary Issue Intervention: Dressing Changed Kadi Wound Tissue: Painful/Tender Kadi Wound Swelling: None Wound Bed Color: [place], Yellow Wound Bed Constitution: Smooth Tissue, Red/[place] - Non Granular Tissue Wound Edges: Not Attached, Irregular Site Measurement - Head-to-Toe Length X Width X Depth (cm): [id number] Skin Integrity Problem Comment: Very large skin tear with the majority of the skin flap still remaining. Dressing was adhered to the skin flap and was very painful for removal. No adhesive products except for blue tape should be used on the patient's skin due to the likelihood of these causing further skin damage. Patient is at high risk of further skin tears due to prednisone. Numerous breaks had to be given to the patient both for the dressing to be removed and for the new dressing to be applied. Dressing liberally soaked with NS to aid in removal. Skin flap was able to be salvaged and was moved back into place. Approximately 80% of the wound bed is covered with the skin flap. Wound was cleansed with NS and gauze. Some areas of unattached flap appeared to be blistered, but this is more likely an accumulation of NS from the dressing removal and cleansing. Skin prep applied to both the periwound and the area of the flap that could be connected to the periwound. Steri strips applied to the area of the flap that was in contact with the periwound skin. Aileen STOCKTON completed the wound dressing per skin tear policy. Wound care will round again at the end of the week. Aileen STOCKTON and student MAHIN Almodovar in room assisting with cares. Right Lateral Hip Dressing Type: Other Other Dressing Type: KerraFoam Gentle Border dressing Dressing Description: Clean/Dry, Intact Exudate Amount: None Integumentary Issue Intervention: Dressing Removed Kadi Wound Tissue: Blanching Kadi Wound Swelling: None Wound Bed Color: [place] Wound Bed Constitution: Red/[place] - Non Granular Tissue Wound Edges: Attached Site Measurement - Head-to-Toe Length X Width X Depth (cm): 0.7x0.5x0.1 Skin Integrity Problem Comment: Partial thickness wound. Patient is unsure of wound origin or when it occurred. Due to patient's predisposition to skin tears , will not use a bordered foam dressing, instead using non bordered foam secured with blue tape. Wound care will round again at the end of the week. Aileen STOCKTON and student MAHIN Almodovar in room assisting with cares. Left Lower Lateral Leg Dressing Type: Other Other Dressing Type: Kerra Foam Gentle Border dressing Dressing Description: Intact, Shadowed Exudate Amount: Scant Exudate Characteristic(s): Serosanguinous Integumentary Issue Intervention: Dressing Changed Kadi Wound Tissue: Painful/Tender Kadi Wound Swelling: None Wound Bed Color: Red Wound Bed Constitution: Red/[place] - Non Granular Tissue Wound Edges: Attached Site Measurement - Head-to-Toe Length X Width X Depth (cm): 1.8x1.2x0.1 Skin Integrity Problem Comment: Skin tear that patient states happened a couple of weeks ago. Wound was cleansed with NS and gauze. Dressing applied per skin tear policy. Wound care will round again at the end of the week. Aileen STOCKTON and student MAHIN Almodovar in room assisting with cares. Left Knee Dressing Type: Contact Layer, Gauze, Super Absorbant Dressing Description: Intact, Shadowed Exudate Amount: Minimal Exudate Characteristic(s): Serosanguinous Integumentary Issue Intervention: Dressing Changed, Hydrogel Applied Kadi Wound Tissue: Ecchymotic, Painful/Tender Kadi Wound Swelling: Mild Wound Bed Color: Red Wound Bed Constitution: Granulation Tissue Wound Edges: Attached Site Measurement - Head-to-Toe Length X Width X Depth (cm): 6.3x13x0.2 Skin Integrity Problem Comment: Very large skin tear that patient states is from a fall several weeks ago. Wound is incredibly painful. Dressing was adhered to the wound bed, saline applied to loosen dressing and allow for removal. Wound cleansed with NS and gauze. Skin flap is mostly missing with some of the flap bunched at the distal edge of the wound. Given the time since the initial injury, wound care is unable to realign the skin flap. Wound was dressed per the skin tear policy by Aileen STOCKTON. Wound care will round again at the end of the week. Aileen STOCKTON and student MAHIN Almodovar in room assisting with cares. Right Knee Dressing Type: Contact Layer, Gauze, Super Absorbant Dressing Description: Intact, Shadowed Exudate Amount: Minimal Exudate Characteristic(s): Serosanguinous Integumentary Issue Intervention: Dressing Changed Kadi Wound Tissue: Ecchymotic, Painful/Tender Wound Bed Color: Red Wound Bed Constitution: Granulation Tissue Site Measurement - Head-to-Toe Length X Width X Depth (cm): 2.2x7.3x0.2 Skin Integrity Problem Comment: Skin tear from a fall that patient says happened several weeks ago. Dressing was adhered to the wound bed causing pain upon removal. Dressing was liberally soaked with NS to aid in removal. Wound cleansed with NS and gauze. Wound was dressed per skin tear policy by Aileen STOCKTON. Wound care will round again at the end of the week. Aileen STOCKTON and student MAHIN Almodovar in room assisting with cares. Right Lower Lateral Leg Dressing Type: Contact Layer, Gauze, Super Absorbant Dressing Description: Clean/Dry, Intact Exudate Amount: Minimal Exudate Characteristic(s): Serous Integumentary Issue Intervention: Dressing Changed Wound Bed Constitution: Red/[place] - Non Granular Tissue Site Measurement - Head-to-Toe Length X Width X Depth (cm): 4.2x7.3x0.2 Skin Integrity Problem Comment: Skin tear that patient states is from a fall several weeks ago. Dressing was adhered to the wound bed and removed following liberal application of NS to help loosen dressing. Wound cleansed with NS. Wound dressed per skin tear policy by Aileen STOCKTON. Wound care will round again at the end of the week. Aileen STOCKTON and student MAHIN Almodovar in room assisting with cares. Right Anterior Thigh Dressing Type: Other Other Dressing Type: Kerra Foam Gentle Border dressing Dressing Description: Clean/Dry, Intact Exudate Amount: Scant Exudate Characteristic(s): Serosanguinous Integumentary Issue Intervention: Dressing Changed Kadi Wound Tissue: Blanching, Ecchymotic Wound Bed Constitution: Red/[place] - Non Granular Tissue Site Measurement - Head-to-Toe Length X Width X Depth (cm): 1.3x2.5x0.2 Skin Integrity Problem Comment: Skin tear as a result of a fall from several weeks ago. Dressing was removed and due to the adhesive, was painful to the patient. Wound cleansed with NS and gauze. Wound dressed per skin tear policy by Aileen STOCKTON. Wound care will round again at the end of the week. Aileen STOCKTON and student MAHIN Almodovar in room assisting with cares. Right Posterior Lower Leg Dressing Type: Other Other Dressing Type: Kerra Foam Gentle Border Dressing Description: Clean/Dry, Intact Exudate Amount: Scant Exudate Characteristic(s): Serous Integumentary Issue Intervention: Dressing Changed Wound Bed Constitution: Red/[place] - Non Granular Tissue Site Measurement - Head-to-Toe Length X Width X Depth (cm): 2.6x1.7x0.2 Skin Integrity Problem Comment: Skin tear that patient states is several weeks old, unsure of origin. Wound dressed per skin tear policy by Aileen STOCKTON. Wound care will round again at the end of the week. Aileen STOCKTON and student MAHIN Almodovar in room assisting with cares. Left Posterior Upper Arm Dressing Type: Adaptic Touch, Mepilex Dressing Description: Clean/Dry, Intact Exudate Amount: Scant Exudate Characteristic(s): Serous Integumentary Issue Intervention: Dressing Changed Kadi Wound Tissue: Painful/Tender Wound Bed Constitution: Red/[place] - Non Granular Tissue Wound Edges: Not Attached Site Measurement - Head-to-Toe Length X Width X Depth (cm): 10x5x0.2 Skin Integrity Problem Comment: Skin tear that has some of the tissue flap still in place. Dressing removed and wound cleansed with NS and gauze. Wound dressed per skin tear policy by Aileen STOCKTON. Wound care will round again at the end of the week. Aileen STOCKTON and student MAHIN Almodovar in room assisting with cares.
[2017-11-21] MEDS: DOXYCYCLINE HYCLATE 100 MG CAP/TAB PO SCH (22:03)
[2017-11-22] MEDS: METOPROLOL TARTRATE 25 MG TAB PO SCH ×2 (09:19→20:24)
[2017-11-22] MEDS: BUMETANIDE 1 MG TAB PO SCH (09:19)
[2017-11-22] MEDS: TORSEMIDE 20 MG TAB PO SCH (09:19)
[2017-11-22] MEDS: predniSONE 5 MG TAB PO SCH ×2 (09:19→17:38)
[2017-11-22] MEDS: HYDROCODONE/APAP 5/325 TAB PO PRN (10:16)
[2017-11-22] MEDS: QUEtiapine FUMARATE 50 MG TAB PO SCH ×2 (10:20→20:23)
[2017-11-22] MEDS: PANTOPRAZOLE SODIUM 40 MG TAB PO SCH ×2 (10:21→20:24)
[2017-11-22] MEDS: POLYETHYLENE GLYCOL 3350 17 GM PKT PO SCH (10:31)
[2017-11-22] MEDS: ENOXAPARIN 30 MG/0.3 ML SYR SC SCH (10:32)
[2017-11-22] MEDS: IRON PO SCH (10:45)
[2017-11-22] MEDS: PRORENAL PO SCH (10:45)
[2017-11-22] MEDS ORDERED: TORSEMIDE 20 MG TAB PO SCH (11:14)
--- NOTE | 2017-11-22 11:17 | HOSPPROG ---
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 Of note she has been on hospice at home recently. I wonder if she has some steroid myopathy contributing to her weakness, her weakness tends to come and go, physical therapy noted that she was able to stand up with minimal assistance yesterday however she states some days is harder than others. # diffuse weakness and failure to thrive, either due to deconditioning complicated by multiple medical issues or steroid myopathy. Heart seems seems less likely however she did has had elevated enzymes * PT and OT * Palliative care consult per patient request. She would like to go off of hospice in order to participate in rehab * No obvious cause on initial evaluation. # chronic renal failure with creatinine of 2.6 likely contributing to her weakness. She Has been followed by Nephrology in the past but has not been deemed a good dialysis candidate, she is status post nephrectomy due to renal cell carcinoma * Monitor creatinine # possible slight Dehydration -elevated BUN -will stop Bumex -decrease Torsemide to 30mg daily # elevated troponins in the setting of coronary artery disease. Patient is asymptomatic with no significant changes. Will get echocardiogram to make sure that this is not contributing to her weakness, would not pursue any risk stratification other than that at this time. * Echocardiogram pending awaiting results. # bullous pemphigoid: On chronic prednisone. Currently she believe she is on 22 mg daily, this could be certainly contributing to steroid myopathy however would be unable to wean this off quickly if at all given her significant skin disease. * Patient does not improve with therapy and no other cause is found prognosis is likely fairly poor it would consider resuming hospice after rehab # multiple skin tears, will have wound care involved Plan: The patient will need Rehab. She is agreeable to this. This will need to be set up. If rehab is not successful, would consider reinitiation of hospice Subjective: still very weak. no cp or sob. Objective: Vital Signs Temp Pulse Resp BP Pulse Ox 36.3 C 76 16 117/58 L 96 11/22/17 08:00 11/22/17 08:00 11/22/17 08:00 11/22/17 08:00 11/22/17 08:00 Laboratory Results 11/22/17 04:42 11/21/17 11/22/17 11/23/17 05:59 05:59 05:59 Intake Total 360 1230 Output Total 400 450 Balance -40 780 PT Cancelled 11/19/17 16:00 INR Cancelled 11/19/17 16:00 - Physical Exam Constitutional: chronically ill appearing Eyes: PERRL, EOMI Ears, Nose, Mouth, Throat: dry mucous membranes Cardiovascular: regular rate and rhythym, no murmur, rub, or gallop Respiratory: no respiratory distress, reduced air movement Gastrointestinal: normoactive bowel sounds, soft, non-tender abdomen Skin: warm Musculoskeletal: generalized weakness Neurologic: AAOx3 Psychiatric: interacting appropriately, not anxious, not encephalopathic Lymph, Heme, Immunologic: No petechiae ICD10 Worksheet Patient Problems: Problems Problem Status Onset REYNOLD (acute kidney injury) Acute Dehydration Acute Generalized weakness Acute Hyponatremia Acute Acute exacerbation of congestive heart failure Acute Anemia Acute Chronic Disease [facility]/Transitional Care Acute Elevated troponin I level Acute GI bleeding Acute Gastrointestinal bleeding, upper Acute Hematuria Acute Hydronephrosis Acute Hyperkalemia Acute Hypoxia Acute Ileus Acute Renal insufficiency Acute Renal mass, right Acute Worsening renal function Acute
--- NOTE | 2017-11-22 13:13 | ECHO ---
[email or web address] [address] [address] Main: [phone] Fax: Transthoracic Echocardiogram Name: USAMA LAMAR MR#: [id number] Study Date: 11/20/2017 Study Time: 10:53 AM Date of : 1930 Age: 87 year(s) Height: 165.1 cm (65 in.) Weight: 63.5 kg (140 lb.) BSA: 1.7 m2 Gender: Female Examination: Echo Indication: Weakness, Elevated troponins Image Quality: Contrast: Requested by: Estela Reese BP: 121 mmHg/58 mmHg Heart Rate: Rhythm: Indication: Weakness, Elevated troponins Procedure Staff Flow Manager: Elvin Ward RDCS Reading Physician: Norman Barry MD Requesting Provider: Conclusions: Normal size left ventricle. Mild concentric LV hypertrophy. EF is 66 %. The septal wall motion is consistent with conduction abnormality.. The left atrium is mildly dilated. Severe mitral valve leaflet calcification is present. Heavily calcified rashida leaflets with mildly restricted mobility. The severty is difficult to assess due to mitral valve shadowing. Mild aortic cusp calcification is noted. Mild aortic valve regurgitation is present. Mild tricuspid regurgitation is present. Measurements: Chambers Valvular Assessment AV/MV Valvular Assessment TV/PV Normal Normal Normal Name Value Range Name Value Range Name Value Range Ao Veronica (MM): 2.8 cm (2.2 cm-3.7 AV Vmax: 1.10 m/s (1 m/s-1.7 TR Vmax: 2.16 mm/s ( - ) cm) m/s) TR PGmax: 19 mmHg ( - ) IVSd (2D): 1.0 cm (0.6 cm-1.1 AV maxP mmHg ( - ) syst. PAP: 24 mmHg ( - ) cm) LVOT Vmax: 0.71 m/s (0.7 m/s-1.1 LVDd (2D): 2.7 cm (3.9 cm-5.3 m/s) cm) AR (PHT): 512 ms ( - ) LVDs (2D): 1.8 cm (2.1 cm-4 MV E Vmax: 1.53 m/s ( - ) cm) MV meanP mmHg ( - ) LVPWd (2D): 1.2 cm ( - ) LVEF (2D): 66 (>=54 %) Continued Measurements: Chambers Valvular Assessment AV/MV Valvular Assessment TV/PV Patient: USAMA LAMAR Study Date: 11/20/2017 Page 1 of 2 10:53 AM Name Value Name Value Name Value LADs Lon.1 cm MV VTI: 21.80 cm CVP (est.): 5 mmHg LA Area: 14.0 cm2 AR Vmax: 2.76 cm/s Findings: Left Ventricle: Normal size left ventricle. Mild concentric LV hypertrophy. Normal global systolic LV function. EF is 66 %. The septal wall motion is consistent with conduction abnormality.. Right Ventricle: Normal size right ventricle. Normal RV function. Left Atrium: The left atrium is mildly dilated. Right Atrium: The right atrium is normal in size. Mitral Valve: Severe mitral valve leaflet calcification is present. Heavily calcified rashida leaflets with mildly restricted mobility. The severty is difficult to assess due to mitral valve shadowing. Aortic Valve: Mild aortic cusp calcification is noted. No aortic valve stenosis is present. Mild aortic valve regurgitation is present. Tricuspid Valve: The tricuspid valve is normal in appearance and function. Mild tricuspid regurgitation is present. Pulmonic Valve: The pulmonic valve is normal in appearance and function. Aorta: The aorta is normal. Pericardium: No pericardial effusion. (No Signature Object) Patient: USAMA LAMAR Study Date: 11/20/2017 Page 2 of 2 10:53 AM [id number]
[2017-11-22] MEDS: PSYLLIUM METAMUCIL 1 PKT PO SCH (14:39)
--- NOTE | 2017-11-22 17:49 | ASMTCMCOM ---
CM Note CM Note Notes: Maren from [facility] stopped by to see pt. Maren has been in touch w/ the daughter in law. Pt and daughter in law are interested in going to [facility]. Therapies worked w/ pt today and is recommending SNF. Referral sent. Non triggering pasrr completed. CM notified [facility] about this transition. CM to follow. Plan: [facility] w/ [facility] pal Date Signed: 11/22/2017 11:12 AM Electronically Signed By:ROSALIND Kumari
[2017-11-22] MEDS: DOXYCYCLINE HYCLATE 100 MG CAP/TAB PO SCH (20:23)
[2017-11-23 08:24] VITALS: BP 130/73
[2017-11-23] MEDS: HYDROCODONE/APAP 5/325 TAB PO PRN (09:16)
[2017-11-23] MEDS: METOPROLOL TARTRATE 25 MG TAB PO SCH (09:17)
[2017-11-23] MEDS: predniSONE 5 MG TAB PO SCH (09:17)
[2017-11-23] MEDS: QUEtiapine FUMARATE 50 MG TAB PO SCH (09:17)
[2017-11-23] MEDS: PANTOPRAZOLE SODIUM 40 MG TAB PO SCH (09:17)
[2017-11-23] MEDS: ENOXAPARIN 30 MG/0.3 ML SYR SC SCH (09:18)
[2017-11-23] MEDS: PRORENAL PO SCH (09:22)
[2017-11-23] MEDS: PSYLLIUM METAMUCIL 1 PKT PO SCH (09:22)
[2017-11-23] MEDS: POLYETHYLENE GLYCOL 3350 17 GM PKT PO SCH (09:22)
[2017-11-23] MEDS: IRON PO SCH (09:22)
--- NOTE | 2017-11-23 13:15 | PDIAF ---
- Diagnosis Diagnosis: weakness Code Status: Do Not Resuscitate - Medication Management Discharge Medications: Medications to Continue on Transfer Doxycycline Hyclate 100 mg PO HS 11/19/17 [Last Taken Unknown] HYDROmorphone HCL [Dilaudid] 0.5 mg PO PRN PRN 11/19/17 [Last Taken Unknown] Hydrocodone/APAP 5/325 [[place] 5/325 (*)] 1 tab PO Q8HRS PRN 11/19/17 [Last Taken Unknown] Loperamide HCl [Imodium 2 mg (*)] 2 mg PO PRN PRN 11/19/17 [Last Taken Unknown] Metoprolol Tartrate [Lopressor 25 mg (*)] 25 mg PO BID 11/19/17 [Last Taken 11/28 09:45] Nitroglycerin [Nitrostat 0.4 mg (*)] 0.4 mg SL Q5M PRN 11/19/17 [Last Taken Unknown] Ondansetron Odt [Zofran Odt 4 mg (*)] 4 mg PO Q8 PRN 11/19/17 [Last Taken Unknown] Pantoprazole Sodium [Protonix 40mg (*)] 40 mg PO BID 11/19/17 [Last Taken 09:44] Polyethylene Glycol 3350 [Miralax 17 gm (*)] 17 gm PO DAILY 11/19/17 [Last Taken 11/19/17 09:45] Prorenal 8mg Iron 1 tab PO DAILY 11/19/17 [Last Taken 11/19/17] Psyllium Husk [Konsyl] 300 gm PO DAILY 11/19/17 [Last Taken 11/19/17] QUEtiapine FUMARATE [Seroquel 50 mg (*)] 50 mg PO BID 11/19/17 [Last Taken 11/19 09:45] Sennosides [Senna Lax] 8.6 mg PO BID PRN 11/19/17 [Last Taken Unknown] hydrOXYzine HCL [hydrOXYzine HCL (RX)] 25 mg PO Q8 PRN 11/19/17 [Last Taken Unknown] predniSONE 2.5 mg PO BIDMEAL 11/19/17 [Last Taken 11/19/17 09:45] Torsemide [Demadex] 30 mg PO DAILY #45 tab 11/23/17 [Last Taken Unknown] Discharge Medications: Refer to the Discharge Home Medication list for PRN reason. - Orders Services needed: Physical Therapy, Occupational Therapy Isolation Type: None Diet Recommendation: no restrictions on diet Diet Texture: Regular Texture Diet Additional Instructions: Wound care orders: For all skin tear wounds, please avoid the use of any adhesive products as these may further result in skin trauma/tears. a. Cleanse wound thoroughly with sterile normal saline in a 20 cc syringe with a 19 gauge needle or direct spray with wound cleanser. Ensure all debris is removed. b. Pat dry with sterile gauze. c. Realign Flap gently, ensuring it is smooth and flat. d. Apply liquid adhesive (benzoin or mastisol) to skin around wound and allow it to dry. This will help steri strips you will apply next adhere. e. Apply steri strips to stabilize flap without putting tension on the flap. f. Apply Hydrogel wound gel to open areas that remain. If patient is diabetic or in other ways immunocompromised, or there is evidence of infection, use Silvasorb gel instead of Hydogel wound gel. g. Cover entire area, including the flap with the contact layer dressing. Either Adaptic Touch or Mepitel are appropriate contact layer choices. h. Cover contact layer with Non-Bordered Foam (Mepilex without a border or like product). i. Secure Foam with Kerlix or Sean. j. Cover with netting to help stabilize Kerlix/Sean. k.Change the skin tear dressing, every 4 days and prn. Babs Adam RN Wound care team Activity: as tolerated F/u: with PCP in one week - Follow Up Care Current Providers and Referrals: Naomi Tyler MD [[facility] Primary Care Provider] - As per Instructions
--- NOTE | 2017-11-23 13:22 | PDDCSUM ---
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 Of note she has been on hospice at home recently. She was admitted due to progressive weakness and was taken off hospice. The etiology of her generalized weakness is likely multifactorial to include medication, chronic disease, and dehydration. She did no have any e/o infection. Volume status has been optimized. Bumex was discontinued. Torsemide decreased. She is being discharged to rehab. If she does not have significant improvement, she may consider going back into hospice. # diffuse weakness and failure to thrive # chronic renal failure with creatinine of 2.6 likely contributing to her weakness. She Has been followed by Nephrology in the past but has not been deemed a good dialysis candidate, she is status post nephrectomy due to renal cell carcinoma * Monitor creatinine # possible slight Dehydration # elevated troponins in the setting of coronary artery disease. Patient is asymptomatic with no significant changes. # bullous pemphigoid: On chronic prednisone. # multiple skin tears, will have wound care involved Exam: CHARU AAOX3 RRR CTA B MEDS: SEE MED REC F/U: WITH PCP IN 1-2 WEEKS. TOTAL TIME SPENT ON D/C IS 35 MINS
--- NOTE | 2017-11-23 14:23 | ASMTDCNOTE ---
Case Management Discharge Discharge Order Complete? Answers: Yes Transportation Arranged Answers: [facility] Case Management Transport Answers: Yes Notes: PCS Form Complete Faxed Final Orders Answers: Yes Agency/Facility Transfer Answers: Yes Report Printed & Faxed to Receiving Agency Family Notified Answers: Yes Notes: Called Leo son Discharge Comments Notes: Pt to discharge to [facility] via stretcher ambulance. Transport set up by Allyson at [facility]. Pt's son Leo notified by phone. Final referral to [facility] updated. No further CM needs noted at this time. Date Signed: 11/23/2017 02:00 PM Electronically Signed By:Lucero Couch
--- NOTE | 2017-11-23 14:33 | ASDISCHSUM ---
Discharge Information Plan Status:SNF Medically Cleared to Leave:11/23/2017 Discharge Date:11/23/2017 CM D/C Disposition:[facility] Facility ADT D/C Disposition:[facility] Facility Projected Discharge Date:11/22/2017 11:00 AM Transportation at D/C:ALS/BLS Discharge Delay Reason: Follow-Up Date:11/22/2017 11:00 AM Discharge Slot: Final Diagnosis: Placement Information Referral Type:Palliative Care Referral ID:-[id number] Provider Name:[facility] Address 1:[address] [place] [address] Phone Number: Address 2: Fax Number: [facility]:[place] Selection Factors: State:[place] Referral Type:*Home Health Care Services Referral ID:[id number] Provider Name: Address 1: Phone Number: Address 2: Fax Number: City: Selection Factors: State: Referral Type:*Intermediate/SNF Referral ID:[id number] Provider Name:[facility] Address 1:[address] Address 2: City:[place] Selection Factors: State:[place] Patient Contact Information Contact Name:AHMET Relationship:Son Address:[address] Work Phone: City[place] [employer] [facility] Phone: State/Zip Code:[place] [address] Email: Financial Information Financial Class:Medicare Primary Plan Desc:MEDICARE INPATIENT Primary Plan Number:[id number] Secondary Plan Desc:AARP/MDR SUPPLEMENT Secondary Plan Number:[id number] Assessment Information [facility] CM Progress Note CM Note CM Note Notes: Pt presented to the ED via EMS for weakness and inability to stand. Pt coming from her [facility] apt at [facility] which she shares w/her , Kian. Pt and Kian are both patients of [facility]. Pt's son Leo, PAVITHRA Blackwood, and granddaughter and other family/friends arrived to the ED. Spoke w/ family about pt's recent increased weakness and inability to stand from the toilet. ED MD and CM spoke w/family and patient confirmed that they wanted to pursue assessment and agreed to labs, chest x-ray, and EKG being completed. Spoke w/ Nishi, ethylene compressor operator at [facility] ([phone]) and notified them of the ED assessment and treatment plan. Nishi faxed over pt's MOST form, MDPOA paperwork, medication list, recent hospice visit notes and their revocation form. Pt admitted for dehydration, hyponatremia, REYNOLD, generalized weakness. Spoke w/[facility] and she mentioned they would be open to the idea of pt going to a SNF if she seems to still need a higher level of care. [facility] states pt has 24/ care between [facility] assistance services and private duty homecare. [facility] says they have been trying to get pt on the waitlist at [facility]. [facility] will be coming to [facility] to have pt and family sign the revocation form. Exact DC needs unknown/TB. Anticipate pt DC home w/ resuming Hospice and other HC assistance, or DC to SNF w/Hospice. CM to follow. Date Signed: 11/19/2017 06:51 PM Electronically Signed By:Maria Elena Molina RN LACE LACE Acuity / Level of Answers: No Care: Did the patient have an inpatient admission? Comorbidities - select Answers: Congestive heart failure all that apply Coronary Artery Disease Palliative care / End of life trajectory Other Notes: HTN, renal cell carcino ma # of Emergency department Answers: 5-8 visits in the last 6 months Score: 11 Date Signed: 11/19/2017 06:59 PM Electronically Signed By:Maria Elena Molina RN [facility] CM Progress Note CM Note CM Note Notes: Pts case discussed w/ Dr. Reese and Brandi, PT. CM spoke to Maren at [facility]. Maren reports that she spoke w/ pts daughter in law Jade. Jade would like pt to return home to HC, private duty caregivers through [facility] and have palliative. Pts has hospice through [facility]. Brandi is recommending home w/ HC w/ private duty caregivers. Jade would like referral made to [facility]. Referral sent. CM to follow. Plan: [facility]; PT, OT, RN w/ private duty caregivers at [facility] w/ [facility] Date Signed: 11/20/2017 10:37 AM Electronically Signed By:ROSALIND Kumari [facility] Progress Note CM Note CM Note Notes: Maren from [facility] stopped by to see pt. Maren has been in touch w/ the daughter in law. Pt and daughter in law are interested in going to [facility]. Therapies worked w/ pt today and is recommending SNF. Referral sent. Non triggering pasrr completed. CM notified [facility] about this transition. CM to follow. Plan: [facility] / [facility] Date Signed: 11/22/2017 11:12 AM Electronically Signed By:ROSALIND Kumari Case Management Discharge Plan Note Case Management Discharge Discharge Order Complete? Answers: Yes Transportation Arranged Answers: [facility] Case Management Transport Answers: Yes Notes: PCS Form Complete Faxed Final Orders Answers: Yes Agency/Facility Transfer Answers: Yes Report Printed & Faxed to Receiving Agency Family Notified Answers: Yes Notes: Called anshul Bailey Discharge Comments Notes: Pt to discharge to [facility] via stretcher ambulance. Transport set up by Allyson at [facility]. Pt's son Leo notified by phone. Final referral to [facility] updated. No further CM needs noted at this time. Date Signed: 11/23/2017 02:00 PM Electronically Signed By:Lucero Couch Intervention Information Intervention Type:*CASTANEDA-Signed Date of Service:11/20/2017 11:18 AM Patient Type:Observation Staff Member:Manjula Mariee Hours: Discipline: Severity: Comment: Intervention Type:*IM-Signed Date of Service:11/23/2017 02:07 PM Patient Type:Inpatient Staff Member:Lucero Couch Hours: Discipline:Conveyor Technician Severity: Comment:
--- NOTE | 2017-11-27 05:47 | CPEKG ---
Test Reason : OPEN Blood Pressure : / mmHG Vent. Rate : 082 BPM Atrial Rate : 076 BPM P-R Int : 166 ms QRS Dur : 152 ms QT Int : 459 ms P-R-T Axes : 024 -21 134 degrees QTc Int : 536 ms Sinus arrhythmia Left bundle branch block Confirmed by Wayne Gillespie ([id number]) on 11/27/2017 5:46:59 AM Referred By: Confirmed By:Wayne Gillespie
== END 2017-11-23 15:19 | DRG 948 ==
LOC: EDUNIT# → F3E 18:32 → OBSVTOIN 11-20 09:38
PROVIDERS: ADMIT Internal Medicine; ATTEND Internal Medicine
DX: R53.1 Weakness (principal); R62.7 Adult failure to thrive; I13.0 Hypertensive heart and chronic kidney disease with heart failure and stage 1 through stage 4 chronic kidney disease, or unspecified chronic kidney disease; I50.32 Chronic diastolic (congestive) heart failure; N18.9 Chronic kidney disease, unspecified; I25.10 Atherosclerotic heart disease of native coronary artery without angina pectoris; M10.9 Gout, unspecified; Z79.52 Long term (current) use of systemic steroids; Z51.5 Encounter for palliative care; Z95.5 Presence of coronary angioplasty implant and graft; Z90.5 Acquired absence of kidney
CPT/HCPCS: 84484-PO; 97110-GP; 97116-GP; 97162-GP; 97166-GO; 97530-GP; 97535-GO; G0378; G8978-GP-CL; G8979-GP-CK; G8987-GO-CL; G8988-GO-CJ; J1650; J7512